=== PATIENT | female | born 1985 | race Two or more races ===

== ENCOUNTER 2020-10-27 05:04 | Emergency (ER) | payer OTHER, SELFPAY ==
--- NOTE | 2020-10-27 05:29 | ED.PSYCH ---
HPI - Psych General Stated Complaint: Crisis Time Seen by Provider: 10/27/20 05:25 Source: patient Mode of arrival: ambulatory Limitations: no limitations History of Present Illness HPI Narrative: psych patient comes emergency room complaining of anxiety. Patient states that she has been going through a lot lately. Patient states that she would like to talk to somebody. Patient states that she is not suicidal or homicidal. Patient states it is mostly anxiety Related Data Allergies Allergy/AdvReac Type Severity Reaction Status Date / Time No Known Allergies Allergy Unverified 01/18/20 15:26 Review of Systems Review of Systems: Constitutional : No Weight loss, No Fever, No Chills, No Night Sweats, No Fatigue, No Malaise ENT/Mouth : No Hearing loss, No Ear Pain, No Nasal Congestion, No Sinus Pain, No Hoarseness, No sore throat, No Rhinorrhea, No Swallowing Difficulty Eyes: No Eye Pain, No Swelling, No Redness, No Foreign Body, No Discharge, No Vision Changes Cardiovascular : No Chest Pain, No SOB, No Dyspnea on Exertion, No Orthopnea, No Edema, No Palpitations Respiratory : No Cough, No Sputum, No Wheezing, No Smoke Exposure, No Dyspnea Gastrointestinal : No Nausea, No Vomiting, No Diarrhea, No Constipation, No abdominal Pain, No Hematochezia, No Melena Genitourinary : no irregular bleeding, No Dysuria, No Urinary Frequency, No Hematuria, No Urinary Incontinence, No Urgency, No Flank Pain, No Urinary Flow Changes, No Hesitancy Musculoskeletal : No joint pain, No Myalgias, No Joint Swelling Skin : No Skin Lesions, No rash Neuro : No Weakness, No Numbness, No Paresthesias, No Loss of Consciousness, No Dizziness, No Headache Psych : complaining of anxiety,No Depression, No SI/HI/AH/VH, No Social Issues, Heme/Lymph: No Bruising, No Bleeding,No Lymphadenopathy Endocrine : No Polyuria, No Polydipsia, No Temperature Intolerance Physical Exam Vital Signs: Appearance: Alert. Oriented X3. No acute distress. Eyes: Pupils equal, round and reactive to light. ENT: Pharynx normal. Neck: Normal inspection. Neck supple. No lymph nodes noted. No crepitus CVS: Normal heart rate and rhythm. Pulses normal. Normal S1 and S2 Respiratory: No respiratory distress. Breath sounds normal. No Wheezing. No rales Abdomen: Soft and nontender. No rigidity. No distention. good BS x4 Skin: Skin warm and dry. Normal skin color. Normal skin turgor. Extremities: No lower extremity edema. No lower extremity edema. No Lacerations. No Rash Neuro: Oriented X 3. No motor deficit. No sensory deficit. Moving all extermities. No slurred speech. 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 Patient refused. Patient apologized and states that she is not ready to go through this procedure. Patient will go home, when she is ready she will return. As mentioned above, patient is here for anxiety, denies depression, no SI or HI. Per patient's request, she was discharged home, did not want a [facility] evaluation Discharge Plan Discharge Clinical Impression: Anxiety Patient Disposition: Home, Self-Care Instructions: Anxiety (ED) Additional Instructions: Please follow-up with your primary care physician tomorrow. If you have any worsening or new symptoms, please return to the emergency room or call 911
[2020-10-27 05:34] VITALS: BP 000/00; PULSE 0; RESP 18; TEMP -17.7; TEMP 0; O2SAT 0; BMI 33.6
== END 2020-10-27 05:36 | disposition home or self-care (01) ==
LOC: HO.ED 05:35
PROVIDERS: Emergency Provider Emergency Medicine
DX: F41.9 Anxiety disorder, unspecified (principal)
CPT/HCPCS: 99281; 99282

== ENCOUNTER 2020-12-29 23:24 | Emergency (ER) | payer OTHER, SELFPAY ==
--- NOTE | ~2020-12-29 | XR_ITS ---
EXAMINATION: XR KNEE, RIGHT CLINICAL INFORMATION: Pain and swelling COMPARISON: None TECHNIQUE: Four views of the right knee. FINDINGS: Osseous alignment is anatomic. Joint spaces are maintained. No acute fracture is seen. No significant effusion. XR/XR knee RT 4V IMPRESSION: No acute findings.
[2020-12-29 23:45] VITALS: BP 120/66; PULSE 68; RESP 12; TEMP 36.1; O2SAT 97; BMI 38.0
--- NOTE | 2020-12-30 00:25 | ED.EXTPRO ---
HPI - Extremity Problem General Chief complaint: Extremity Problem Stated complaint: leg pain Source: patient Mode of arrival: ambulatory Limitations: no limitations History of Present Illness HPI Narrative: 35-year-old female presents with several months of burning leg pain. Does not report any injury or trauma, states that she has been worked up by primary care physician with no significant results. Patient does not report any other symptoms at this time. MD Complaint: extremity pain Onset (ago): month(s) (2) Pain Consistency: constant Location: left, right and lower extremity Severity scale (1-10): 9 Quality: burning Radiation: none Relieving factors: nothing Associated symptoms: denies other symptoms Related Data Allergies Allergy/AdvReac Type Severity Reaction Status Date / Time No Known Allergies Allergy Verified 12/29/20 23:45 Review of Systems Review of Systems: Constitutional: No Fever, No Chills ENT/Mouth: No Ear Pain, No Hoarseness, No sore throat Eyes: No Eye Pain, No Swelling, No Redness, No Foreign Body Cardiovascular: No Chest Pain, No SOB Respiratory: No Cough, No Dyspnea Gastrointestinal: No Nausea, No Vomiting, No Diarrhea, No abdominal Pain Genitourinary: No Dysuria, No Hematuria Musculoskeletal: positive right leg pain, No Myalgias, No Joint Swelling Skin: No Skin lacerations, No rash Neuro: No Weakness, No Numbness, No Paresthesias, No Loss of Consciousness, No Dizziness, No Headache Psych: No Anxiety/Panic, No Depression Heme/Lymph: no easy bruising, no Lymphadenopathy Endocrine: No Polyuria, No Polydipsia Yes all other systems are reviewed and are negative [facility] Past Medical History Attestation statement: The following information was validated with the patient. Source: old records reviewed Social History Social History Advance Directives: No Advance Directives Information Provided: Yes Physical Exam Vital Signs: Vital Signs: Last Vital Signs Temp 96.9 F 12/29/20 23:45 Pulse 68 12/29/20 23:45 Resp 12 12/29/20 23:45 BP 120/66 12/29/20 23:45 Pulse Ox 97 12/29/20 23:45 Body Mass Index 38.0 Appearance: Alert. Oriented X3. No acute distress. Eyes: Pupils equal, round and reactive to light. ENT: Pharynx normal. Neck: Normal inspection. Neck supple. CVS: Normal heart rate and rhythm. Pulses normal. Respiratory: No respiratory distress. Breath sounds normal. Abdomen: Soft and nontender. Skin: Skin warm and dry. Normal skin color. Normal skin turgor. Extremities: No lower extremity edema. No appreciable swelling, wounds, erythema, cysts, or phlebitis noted. Neuro: No motor deficit. No sensory deficit. Cranial nerves 2-12 intact. Course Course Course Narrative: 35-year-old female presents with burning leg pain, right greater than the left. States that she does not have any history trauma or injury, no rashes or fevers noted. Patient was worked up by primary care physician and other specialists with no significant findings. Physical exam is unremarkable, no indication of cysts, phlebitis, edema, or indication of DVT. Brisk capillary refill and equal pulses to bilateral lower extremities. Will order right knee x-ray. Patient does have full range of motion, is ambulatory without limp or difficulty. X-rays are negative for acute findings. Patient was referred to primary care physician for further workup. Patient verbalized understanding of and agrees plan of care discharge home. MDM - Extremity (Nontraumatic) MDM Narrative Medical decision making narrative: Carter cyst Differential Diagnosis Differential diagnosis: Likely cellulitis, superficial thrombophlebitis, lower extremity edema and deep vein thrombosis of lower extremity Medical Records Attestation: I reviewed the patient's medical records. Imaging Data Knee x-ray: Attestation: I personally reviewed and interpreted this imaging study as follows: Radiologist's impression: EXAMINATION: XR KNEE, RIGHT? CLINICAL INFORMATION: Pain and swelling? COMPARISON: None? TECHNIQUE: Four views of the right knee. FINDINGS: Osseous alignment is anatomic. Joint spaces are maintained. No acute fracture is seen. No significant effusion.? XR/XR knee RT 4V IMPRESSION: No acute findings. Discharge Plan Discharge Clinical Impression: Leg pain Qualifiers: Laterality: bilateral Qualified Code(s): M79.604 - Pain in right leg Patient Disposition: Home, Self-Care Instructions: Leg Pain (ED) Additional Instructions: You were evaluated for burning leg pain. X-rays are negative for acute findings requiring emergent intervention. Please continue to follow-up with her primary care provider. Thank you for choosing this emergency department for evaluation. Please follow-up with primary care physician as needed. Return to the emergency department for any new, concerning, or worsening symptoms. Interventions: ED Discharge Assessment Last Done: 12/30/20 01:08 Discharge Date/Time: 12/30/20 01:09
== END 2020-12-30 01:09 | disposition home or self-care (01) ==
PROVIDERS: Emergency Provider Student in an Organized Health Care Education/Training Program; PCP Internal Medicine
DX: M79.604 Pain in right leg (principal)
CPT/HCPCS: 73564; 99283

== ENCOUNTER 2021-02-02 16:56 | Emergency (ER) | payer OTHER, SELFPAY | END 2021-02-02 18:20 | disposition left against medical advice (07) | PROVIDERS: Emergency Provider Emergency Medicine | DX: R10.9 Unspecified abdominal pain (principal) ==

== ENCOUNTER 2021-02-03 20:00 | Emergency (ER) | payer OTHER, SELFPAY ==
--- NOTE | 2021-02-03 21:34 | PC.NURSE ---
NO RESPONSE WHEN CALLED IN WR.
== END 2021-02-03 22:47 | disposition left against medical advice (07) ==
PROVIDERS: Emergency Provider Emergency Medicine
DX: R10.9 Unspecified abdominal pain (principal)

== ENCOUNTER 2021-02-03 23:44 | Emergency (ER) | payer OTHER, SELFPAY ==
[2021-02-04 00:16] VITALS: BP 128/75; PULSE 101; RESP 16; TEMP 36.9; O2SAT 100; BMI 36.8
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
--- NOTE | 2021-02-04 02:08 | PC.NURSE ---
this nurse went into pt room with Brit RN to administer medications, this nurse also asked pt if she would be ok with having lab work done at request of provider and patient stated she doesn't like needles. this nurse informed the pt that one of the medications is an IM injection and pt then refused all meds, including PO meds, and refused lab work. notified
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
[2021-02-04 03:33] LABS: CT PCR NOT DETECTED (Not Detect.); NG PCR NOT DETECTED (Not Detect.)
[2021-02-04 05:42] VITALS: RESP 16
[2021-02-04 05:53] VITALS: BP 108/54; PULSE 71; RESP 16; O2SAT 96
--- NOTE | 2021-02-04 07:30 | PC.NURSE ---
pt medically cleared for discharge. pt has pamphlet from care team. pt states she will call numbers on pamphlet. pt given discharge summary that recommends her following up with provider. pt told her std results per her request.
== END 2021-02-04 07:35 | disposition home or self-care (01) ==
PROVIDERS: Emergency Provider Student in an Organized Health Care Education/Training Program
DX: T76.21XA Adult sexual abuse, suspected, initial encounter (principal); R51.9 Headache, unspecified; R10.9 Unspecified abdominal pain; Z20.2 Contact with and (suspected) exposure to infections with a predominantly sexual mode of transmission
CPT/HCPCS: 87491; 87591; 96372; 99284

== ENCOUNTER 2021-02-07 00:17 | Inpatient (IN) | payer OTHER, SELFPAY ==
--- NOTE | ~2021-02-07 | XR_ITS ---
EXAMINATION: XR ABDOMEN KUB CLINICAL INDICATION: Obstruction COMPARISON: None TECHNIQUE: AP view of the abdomen. FINDINGS: There is a large amount stool in the colon suggestive of constipation. There are no dilated loops of bowel to suggest obstruction. There is no evidence of free air. No calcifications are seen. Bony structures are normal. XR/XR KUB IMPRESSION: Large amount of stool throughout the colon suggestive of constipation. No evidence of obstruction.
--- NOTE | ~2021-02-07 | XR_ITS ---
EXAMINATION: XR ABDOMEN KUB CLINICAL INDICATION: Constipation COMPARISON: 02/28/2021 TECHNIQUE: 2 views of the abdomen. FINDINGS: Again seen is a large amount of stool throughout the colon, without colonic dilatation compatible with constipation. No evidence of obstruction. No unusual soft tissue calcifications. Bones are unremarkable. XR/XR KUB IMPRESSION: Moderate constipation, similar in severity to the prior exam.
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
[2021-02-07 00:33] VITALS: BP 140/73; PULSE 91; RESP 18; TEMP 37.1; O2SAT 98; BMI 37.8
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
[2021-02-07 01:41] LABS: COVID-19 Test Negative (Negative); IDNOW Serial# 9DD0AD1C
--- NOTE | 2021-02-07 05:41 | PC.NURSE ---
Patient was found intermittently sleeping, no distress observed/reported, pending urine sample, patient is germophobic, behavior appropriate, patient is currently not on any medication per patient, BHN referral completed and confirmed by Armando, patient will be seen in the morning, patient is sectioned by ED provider, will continue to monitor.
--- NOTE | 2021-02-07 06:52 | PC.NURSE ---
patient appears to remain asleep at present respirations are even and unlabored, patient appears in no distress
--- NOTE | 2021-02-07 07:41 | PC.NURSE ---
patients sister called and spoke to [employer], reported mother recently and client doesnt seem to eat outside the home and that client has lost 50 pounds in last several months also
[2021-02-07 09:02] VITALS: BP 134/95; PULSE 78; RESP 16; TEMP 36.9; O2SAT 98
[2021-02-07 09:45] LABS: Appearance Urine HAZY; Color Urine YELLOW; Glucose Urine UA NEG (NEG); Leukocyte Esterase Urine NEG (NEG); Nitrite Urine NEG (NEG); Specific Gravity - Urine 1.025 (1.005-1.025); Urine Blood NEG (NEG); Urine Ketones 40 MG/DL (NEG); Urine Protein NEG (NEG-TRACE)
[2021-02-07 09:47] LABS: UPreg QC Valid YES; Urine Pregnancy NEGATIVE (NEGATIVE)
[2021-02-07 09:49] LABS: Amphetamine Screen Urine Not Detected (Not Detect); Barbiturates, Urine Not Detected (Not Detect); Benzodiazepines Screen Urine Not Detected (Not Detect); Cannabinoid Screen Urine Not Detected (Not Detect); Cocaine Screen Urine Not Detected (Not Detect); Fentanyl, urine Not Detected (Not Detect); Opiate Screen Urine Not Detected (Not Detect); Phencyclidine Screen Urine Not Detected (Not Detect)
[2021-02-07 09:53] LABS: Mucus Urine 2+ /LPF; RBC Urine 0 /HPF (0); Squamous Epithelial Cell Urine 1+ /LPF; WBC Urine 0 /HPF (0-4)
[2021-02-07 15:18] VITALS: BP 133/77; PULSE 111; RESP 18; O2SAT 96
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
[2021-02-07 23:49] VITALS: BP 136/90; PULSE 95; RESP 18; TEMP 36.1; O2SAT 99
--- NOTE | 2021-02-08 00:13 | PC.NURSE ---
Pt is a 35 yr old female who self presented to ED due to feeling overwhelmed and anxious with passive SI. Pt refused to sign CV while in pod. inbound call center representative signed section 12. Pt was admitted to M5 unit at 2200, vitals were taken. Pt presented as anxious, germphobic, had refused to sit in cleaned wheelchair until blanket was placed over it. when on unit, chair had to be covered with blanket again before she could sit on it. Pt was quite, guarded, anxious. She was shown to her room by pc. Was unable to complete nursing assessment on admission due to pt's high anxiety state. Peer on unit was restrained which made pt even more anxious. Pt was found in peers room by PC, pt then stood in corner in hallway. Didn't want to leave stated I am not making any noise, can I please stay here to get my thoughts together Was offered to be shown sensory room with no effect. inbound call center representative met with pt, made order for Ativan 2 mg. Pt refused Ativan stated Can I try staying here refused after multiple. Hands are very traore, and cracked. Pt given lotion. Tox screen was negative.
--- NOTE | 2021-02-08 01:20 | PC.NURSE ---
Pt is a 35 yr old female who self presented to ED due to feeling overwhelmed and anxious with passive SI. Pt refused to sign CV while in pod. floriculture teacher signed section 12. Pt was admitted to M5 unit at 2200, vitals were taken. Pt presented as anxious, very af, had refused to sit in cleaned wheelchair until blanket was placed over it. when on unit, chair had to be covered with blanket again before she could sit on it. Pt was quite, guarded, anxious. She was shown to her room by pc. Was unable to complete nursing assessment on admission due to pt's high anxiety state. Peer on unit was restrained which made pt even more anxious. Pt was found in peers room by PC, pt then stood in corner in hallway. Didn't want to leave stated I am not making any noise, can I please stay here to get my thoughts together Was offered to be shown sensory room with no effect. floriculture teacher met with pt, made order for Ativan 2 mg. Pt refused Ativan stated Can I try staying here refused after multiple. later was walked to room. Hands are very dry. Pt given lotion. Tox screen was negative. Nurse to nurse done before transfer to unit. Pt was assessed by AUTOMATIC VULCANIZING OPERATOR Tammie Monroy. Denied SI/SH at time of admission. Didn't sign any paperwork, wasn't able sit through safety tool or any assessment, kept saying can I do this tomorrow, am tired . Pt currently in room sitting on bed. Will continue to monitor and offer support as needed. Continues on 15 min checks.
[2021-02-08 13:00] VITALS: BP 121/82; PULSE 103; RESP 16; TEMP 36.6; O2SAT 99
[2021-02-08 18:00] VITALS: BP 126/64; PULSE 102; RESP 18; TEMP 37; O2SAT 100
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
--- NOTE | 2021-02-08 19:24 | PC.NURSE ---
Patient offered flu shot, stated she was undecided . Refused at this time.
--- NOTE | 2021-02-09 09:00 | ECG_ITS ---
Test Reason : psychosis Blood Pressure : / mmHG Vent. Rate : 101 BPM Atrial Rate : 101 BPM P-R Int : 130 ms QRS Dur : 076 ms QT Int : 368 ms P-R-T Axes : 068 039 020 degrees QTc Int : 477 ms Poor data quality, interpretation may be adversely affected Sinus tachycardia with Premature atrial complexes Nonspecific ST abnormality Inferior leads Abnormal ECG No previous ECGs available Referred By: Brittnee Saunders Electronically Signed By:JOHN UNDERWOOD MD
[2021-02-09 09:23] VITALS: BP 124/85; PULSE 104; RESP 17; TEMP 36.8; O2SAT 98
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
[2021-02-09 18:00] VITALS: BP 122/75; PULSE 85; RESP 18; TEMP 36.3; O2SAT 98
--- NOTE | 2021-02-09 18:47 | PC.NURSE ---
Pt submitted a Three Day Notice on Friday 02/09 up on 02/13.
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
[2021-02-10 18:00] VITALS: BP 135/83; PULSE 76; RESP 20; TEMP 35.8; O2SAT 99
[2021-02-11 07:30] VITALS: BP 120/76; PULSE 89; RESP 18; TEMP 36.7; O2SAT 99
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
[2021-02-11 21:00] VITALS: BP 124/76; PULSE 90; RESP 16; TEMP 36.4; O2SAT 100
[2021-02-12 08:17] VITALS: BP 114/64; PULSE 79; RESP 14; TEMP 36.7; O2SAT 99
--- NOTE | 2021-02-12 11:37 | P.CONOB_ITS ---
COMPLEX CARE NURSE - CN: HPI Data of Consult Consult date: 02/12/21 Requesting Physician: Marjorie Bauer Primary Care Provider: [facility] Consult Narrative Narrative: Radha Perry is a 35 year old female Called to see pt. for a clinical cytopathologist consult. She is resting in bed comfortably, Ann (pt. nurse) is present for interview. She declines a physical exam today, she is open to talk. Patient reports vaginal irritation for several days. She denies any urinary symptoms. She has some vaginal discharge but does not know what color it was. She has some mild pelvic discomfort for a few days. She also has a history of constipation/diarrhea. Vague answers to menstrual history. cc:: CC: Marjorie Bauer METALIZING SUPERVISOR - Review of Systems Review of Systems Gastrointestinal: Reports Constipation and Diarrhea Additional Comments: vaginal irritation and discharge, abdominal discomfort OB PMFSH Past Medical History Medical History (Updated 02/12/21 @ 17:19 by Ashley Sands CNM) Vaginal irritation Social History Social History Household Members Other:: I don't want to answer that right now . Patient Tobacco Use Status: Never used Tobacco Smoked in Last 30 Days: No e-Cigarette/Vaping Use: Never Used Use of substances other than those prescribed or required for medical reasons: Unknown Substance Use Type: Caffiene Substance Use Type Other:: I'm not sure . Last Used Substance: Unknown Last Used Substance Other:: I'm not sure . Currently Displaying Signs/Symptoms of Drug Intoxication Withdrawal: No Do you feel safe in your current relationship?: Yes Spiritual Healthcare Practices: My kathryn is in God, Jonathan Barney . Cultural Healthcare Practices: Not sure . Advance Directives: No Advance Directives Information Provided: No Advance Directives on File: No Do you have thoughts of harming others: None Do you have a plan to hurt others: No Plan Recently lost weight without trying: Unsure Patient : No : No service: No Sexual orientation: Decline to Answer Meds Allergies Allergy/AdvReac Type Severity Reaction Status Date / Time No Known Allergies Allergy Verified 02/04/21 00:13 Active Medications: Current Medications Acetaminophen (Acetaminophen 325 Mg Tablet) 650 mg PO Q6H PRN PRN Reason: Headache/Pain Mild Scale (1-3) Al Hydroxide/Mg Hydroxide (Magnesium Hydrox/Alum Hydrox 30 Ml Oral.Susp) 30 ml PO Q6H PRN PRN Reason: Heartburn/Nausea Hydroxyzine HCl (Hydroxyzine Hcl 25 Mg Tablet) 25 mg PO Q6H PRN PRN Reason: Anxiety Magnesium Hydroxide (Milk Of Magnesia 30 Ml Oral.Susp) 30 ml PO DAILY PRN PRN Reason: Constipation Metronidazole (Metronidazole 500 Mg Tablet) 500 mg PO BID ALEX Stop: 02/15/21 21:00 Last Admin: 02/12/21 08:21 Dose: Not Given Documented by: Olanzapine (Olanzapine 5 Mg Tablet) 5 mg PO BEDTIME ALEX Last Admin: 02/11/21 21:24 Dose: Not Given Documented by: Trazodone HCl (Trazodone Hcl 50 Mg Tablet) 50 mg PO BEDTIME PRN PRN Reason: Insomnia Home Medications Medication Instructions Recorded Confirmed Last Taken Type Seroquel 1 tab PO TID 02/07/21 02/07/21 Unknown History melatonin 1 tab PO BEDTIME 02/07/21 02/07/21 Unknown History COMPLEX CARE NURSE Physical Exam Vitals Vital signs: Temp Pulse Resp BP Pulse Ox 98.0 F 79 14 114/64 99 02/12/21 08:17 02/12/21 08:17 02/12/21 08:17 02/12/21 08:17 02/12/21 08:17 Body Mass Index 37.8 COMPLEX CARE NURSE - Results Labs Labs: Urine 02/07/21 02/07/21 Range/Units 09:27 09:27 Urine Color YELLOW Urine Appearance HAZY Urine pH 6.0 (5.0-8.0) Ur Specific [place] 1.025 (1.005-1.025) Urine Protein NEG (NEG-TRACE) MG/DL Urine Glucose (UA) NEG (NEG) MG/DL Urine Test NEGATIVE (NEGATIVE) Assessment and Plan (1) Vaginal irritation: Status: Acute Pt. declined exam, the nurse will ask pt. if she reconsiders she will notify the department for my return to complete the physical exam/evaluation.
--- NOTE | 2021-02-12 13:00 | PC.NURSE ---
Patient seen for POULTRY CLEANER consult. Patient refused assessment at this time.
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
[2021-02-12 18:00] VITALS: BP 122/77; PULSE 107; RESP 18; TEMP 36.3; O2SAT 97
--- NOTE | 2021-02-13 09:05 | P.PNPSI_ITS ---
Subjective Subjective Date of Service: 02/14/21 Reason For Visit: Psychosis Subjective Notes: Pizarro Warning Interim History: Pt continues to present as guarded, not eating food worried that it is poisoned or will harm her. Pt continues to decline taking medications due to paranoia. Pt awake most of the night. Pt suspicious, not providing much information. Family concern about pt's ability to care for herself. Minimally interactive with peers. 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: No c/o dizziness, headache GI: No c/o Nausea, Vomiting, diarrhea, constipation or heartburn Yes all other systems are reviewed and are negative and Unobtainable due to mental status Reports behavioral changes Psychiatric: Reports abnormal sleep pattern, Reports anxiety, Reports behavioral changes, Reports change in appetite, Reports depression, Reports difficulty concentrating, Reports hopelessness, Reports irritability, Reports anhedonia, Reports paranoia and Reports suicidal ideation (denies) Mental Status Exam Mental Status Exam Narrative: Appearance: casually groomed, fair hygiene in NAD Behavior:very suspicious and paranoid psychomotor: no agitation or retardation noted Speech:clear, soft tone, minimally spontaneous, Thought process:limited to yes and no answers Thought content:suspicious, worried about people following her Mood: okay Affect: suspicious, paranoid SI:denies HI:denies VH/AH:appears internally preoccupied Delusions:paranoia about being monitored, people following her Insight/judgment:impaired x 2. Memory/cog: alert, oriented to month, place, not situation. impaired secondary to psychiatric symptoms. Diagnostics Vital Signs (24Hr): Vital Signs - 24 hr 02/13/21 20:03 02/14/21 06:00 Temperature 97.6 F 97.8 F Pulse Rate 83 100 Respiratory Rate 16 18 Blood Pressure 119/76 114/83 Pulse Oximetry 99 97 Body Mass Index 37.8 Medications Medications Current Medications Acetaminophen (Acetaminophen 325 Mg Tablet) 650 mg PO Q6H PRN PRN Reason: Headache/Pain Mild Scale (1-3) Al Hydroxide/Mg Hydroxide (Magnesium Hydrox/Alum Hydrox 30 Ml Oral.Susp) 30 ml PO Q6H PRN PRN Reason: Heartburn/Nausea Hydroxyzine HCl (Hydroxyzine Hcl 25 Mg Tablet) 25 mg PO Q6H PRN PRN Reason: Anxiety Magnesium Hydroxide (Milk Of Magnesia 30 Ml Oral.Susp) 30 ml PO DAILY PRN PRN Reason: Constipation Olanzapine (Olanzapine 10 Mg Tablet) 10 mg PO BEDTIME ALEX Last Admin: 02/13/21 20:04 Dose: Not Given Documented by: Trazodone HCl (Trazodone Hcl 50 Mg Tablet) 50 mg PO BEDTIME PRN PRN Reason: Insomnia Allergies Allergies Allergy/AdvReac Type Severity Reaction Status Date / Time No Known Allergies Allergy Verified 02/04/21 00:13 Assessment & Plan Assessment & Plan (1) Schizoaffective disorder, depressive type: Status: Acute Code(s): F25.1 - Schizoaffective disorder, depressive type Assessment and Plan: Pt with hx of schizoaffective disorder PLAN 1. Pt currently declines taking medications. Significant concern as to her ability to care for self including significant loss weight, ability to maintain job due to paranoia, impaired judgment/insight. Appears gravely disable. Decision of team to file for involuntary commitment. 2. Olanzapine offered but pt declines. Greater than 50% of the session was spent on counseling and/or coordination of care Reason for contiued inpatient stay Substantial Risk for: inability to function
[2021-02-13 20:03] VITALS: BP 119/76; PULSE 83; RESP 16; TEMP 36.4; O2SAT 99
[2021-02-14 06:00] VITALS: BP 114/83; PULSE 100; RESP 18; TEMP 36.6; O2SAT 97
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
[2021-02-15 08:00] VITALS: BP 112/59; PULSE 78; RESP 16; TEMP 36.7; O2SAT 98
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
[2021-02-16 20:10] VITALS: BP 118/62; PULSE 104; RESP 16; TEMP 36.4; O2SAT 98
--- NOTE | 2021-02-17 01:35 | PC.NURSE ---
Engineering found a bunch of bath wipes and food items in the clogged drain. Bathroom was locked after they left and patient was told that the bathroom would remain locked and when she needed to use the bathroom, she would need to ask staff. Also, patient was informed that she needed to eat outside her room because it was found that she was flushing large amounts of food items down the toilet as well.
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
--- NOTE | 2021-02-17 15:16 | MHC.CLN ---
F/U PATIENT FLUSHING FOOD DOWN TOILET. ALSO DECLINING FOOD DUE TO FEARFUL OF POISONING. DIET=REGULAR WITH ENSURE TID. CONTINUE TO FOLLOW FOR STRATEGIES TO INCREASE INTAKE.
[2021-02-17 19:49] VITALS: BP 120/85; PULSE 92; RESP 18; TEMP 36.4; O2SAT 100
[2021-02-18 08:00] VITALS: BP 111/73; PULSE 105; RESP 16; TEMP 36.2; O2SAT 100
--- NOTE | 2021-02-18 13:29 | P.PNPSI_ITS ---
Subjective Subjective Date of Service: 02/18/21 Reason For Visit: Psychosis Interim History: Pt continues to present as very paranoia, guarded, does not feel safe going out of her room. She continues to decline eating most food as she is worried that she is being poisoned. Pt continues to report she is worried about her safety, thinks people are after her. She denies SI/HI. She reports she wants professional help and she would follow up but when reminded she can have treatment here, pt very guarded and suspicious. Per nursing, pt throwing food down toilet, guarded, mostly in her room minimally interacting with peers or staff. She continues to decline medications. 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: No c/o dizziness, headache GI: No c/o Nausea, Vomiting, diarrhea, constipation or heartburn Yes all other systems are reviewed and are negative and Unobtainable due to mental status Reports behavioral changes Psychiatric: Reports abnormal sleep pattern, Reports anxiety, Reports behavioral changes, Reports change in appetite, Reports depression, Reports difficulty concentrating, Reports hopelessness, Reports irritability, Reports anhedonia, Reports paranoia and Reports suicidal ideation (denies) Mental Status Exam Mental Status Exam Narrative: Appearance: casually groomed, fair hygiene in NAD Behavior:very suspicious and paranoid psychomotor: no agitation or retardation noted Speech:clear, soft tone, minimally spontaneous, Thought process:limited to yes and no answers Thought content:suspicious, worried about people following her Mood: okay Affect: suspicious, paranoid SI:denies HI:denies VH/AH:appears internally preoccupied Delusions:paranoia about being monitored, people following her Insight/judgment:impaired x 2. Memory/cog: alert, oriented to month, place, not situation. impaired secondary to psychiatric symptoms. Diagnostics Vital Signs (24Hr): Vital Signs - 24 hr 02/17/21 19:49 02/18/21 08:00 Temperature 97.6 F 97.2 F Pulse Rate 92 105 H Respiratory Rate 18 16 Blood Pressure 120/85 111/73 Pulse Oximetry 100 100 Body Mass Index 37.8 Medications Medications Current Medications Acetaminophen (Acetaminophen 325 Mg Tablet) 650 mg PO Q6H PRN PRN Reason: Headache/Pain Mild Scale (1-3) Al Hydroxide/Mg Hydroxide (Magnesium Hydrox/Alum Hydrox 30 Ml Oral.Susp) 30 ml PO Q6H PRN PRN Reason: Heartburn/Nausea Hydroxyzine HCl (Hydroxyzine Hcl 25 Mg Tablet) 25 mg PO Q6H PRN PRN Reason: Anxiety Magnesium Hydroxide (Milk Of Magnesia 30 Ml Oral.Susp) 30 ml PO DAILY PRN PRN Reason: Constipation Olanzapine (Olanzapine 10 Mg Tablet) 10 mg PO BEDTIME ALEX Last Admin: 02/17/21 20:13 Dose: Not Given Documented by: Trazodone HCl (Trazodone Hcl 50 Mg Tablet) 50 mg PO BEDTIME PRN PRN Reason: Insomnia Allergies Allergies Allergy/AdvReac Type Severity Reaction Status Date / Time No Known Allergies Allergy Verified 02/04/21 00:13 Assessment & Plan Assessment & Plan (1) Schizoaffective disorder, depressive type: Status: Acute Code(s): F25.1 - Schizoaffective disorder, depressive type Assessment and Plan: Pt with hx of schizoaffective disorder PLAN 1. Pt currently declines taking medications. Significant concern as to her ability to care for self including significant loss weight, ability to maintain job due to paranoia, impaired judgment/insight. Appears gravely disable. Decision of team to file for involuntary commitment. 2. Olanzapine offered but pt declines. Weekend coverage: pt continues to decline tx, has not been eating meals or sustenance provided. Continues to be at risk for physical neglect and inability to function. I spent minutes with the patient and/or on the patient floor today, greater than?50% of which was spent counseling/coordinating care. Reason for contiued inpatient stay Substantial Risk for: inability to function
[2021-02-18 18:00] VITALS: BP 114/72; PULSE 79; TEMP 36.6; O2SAT 97
[2021-02-19 08:29] VITALS: BP 108/59; PULSE 81; RESP 16; TEMP 36.7; O2SAT 97
--- NOTE | 2021-02-19 10:46 | P.PNPSI_ITS ---
Subjective Subjective Date of Service: 02/19/21 Reason For Visit: Psychosis Subjective Notes: Section 7 Interim History: Pt continues to present as guarded and paranoid. Pt mostly in her room and declines to attend assigned groups. Pt continues to report that she does not feel safe here (reports that someone may be trying to hurt her but does not state who) or at her apartment but asks that she is discharged. Pt more guarded and not fully forthcoming with extend of paranoia. Pt reports she would engage in OP therapy but per records pt has presented twice to ED reporting anxiety but when evaluated by crisis declined talking with them. Pt drinking ensure, not eating much food. She denies SI/HI. 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, headache GI: No c/o Nausea, Vomiting, diarrhea, constipation or heartburn Yes all other systems are reviewed and are negative and Unobtainable due to mental status Reports behavioral changes Psychiatric: Reports abnormal sleep pattern, Reports anxiety, Reports behavioral changes, Reports change in appetite, Reports depression, Reports difficulty concentrating, Reports hopelessness, Reports irritability, Reports anhedonia, Reports paranoia and Reports suicidal ideation (denies) Mental Status Exam Mental Status Exam Narrative: Appearance: casually groomed, fair hygiene in NAD Behavior:very suspicious and paranoid psychomotor: no agitation or retardation noted Speech:clear, soft tone, minimally spontaneous, Thought process:limited to yes and no answers Thought content:suspicious, worried about people following her Mood: okay Affect: suspicious, paranoid SI:denies HI:denies VH/AH:appears internally preoccupied Delusions:paranoia about being monitored, people following her Insight/judgment:impaired x 2. Memory/cog: alert, oriented to month, place, not situation. impaired secondary to psychiatric symptoms. Diagnostics Vital Signs (24Hr): Vital Signs - 24 hr 02/20/21 18:00 Temperature 97.4 F Pulse Rate 95 Respiratory Rate 18 Blood Pressure 118/75 Pulse Oximetry 100 Body Mass Index 37.8 Medications Medications Current Medications Acetaminophen (Acetaminophen 325 Mg Tablet) 650 mg PO Q6H PRN PRN Reason: Headache/Pain Mild Scale (1-3) Al Hydroxide/Mg Hydroxide (Magnesium Hydrox/Alum Hydrox 30 Ml Oral.Susp) 30 ml PO Q6H PRN PRN Reason: Heartburn/Nausea Hydroxyzine HCl (Hydroxyzine Hcl 25 Mg Tablet) 25 mg PO Q6H PRN PRN Reason: Anxiety Magnesium Hydroxide (Milk Of Magnesia 30 Ml Oral.Susp) 30 ml PO DAILY PRN PRN Reason: Constipation Last Admin: 02/20/21 15:48 Dose: 30 ml Documented by: Olanzapine (Olanzapine 10 Mg Tablet) 10 mg PO BEDTIME ALEX Last Admin: 02/20/21 20:30 Dose: Not Given Documented by: Trazodone HCl (Trazodone Hcl 50 Mg Tablet) 50 mg PO BEDTIME PRN PRN Reason: Insomnia Allergies Allergies Allergy/AdvReac Type Severity Reaction Status Date / Time No Known Allergies Allergy Verified 02/04/21 00:13 Assessment & Plan Assessment & Plan (1) Schizoaffective disorder, depressive type: Status: Acute Code(s): F25.1 - Schizoaffective disorder, depressive type Assessment and Plan: Pt with hx of schizoaffective disorder PLAN 1. Pt currently declines taking medications. Significant concern as to her ability to care for self including significant loss weight, ability to maintain job due to paranoia, impaired judgment/insight. Appears gravely disable. Decision of team to file for involuntary commitment. 2. Olanzapine offered but pt declines. Weekend coverage: pt continues to decline tx, has not been eating meals or sustenance provided. Continues to be at risk for physical neglect and inability to function. I spent minutes with the patient and/or on the patient floor today, greater than?50% of which was spent counseling/coordinating care. Reason for contiued inpatient stay Substantial Risk for: inability to function
[2021-02-19 20:30] VITALS: BP 114/75; PULSE 95; TEMP 36.3; O2SAT 100
--- NOTE | 2021-02-20 10:49 | HO.PSYCHPN ---
Subjective Subjective Date of Service: 02/20/21 Reason For Visit: Psychosis Subjective Notes: Section 7 Interim History: Pt continues to stay mostly in room. She reports she has been through a lot. However, pt would not elaborate. Pt reports she does not feel here nor at apartment. She states she has a car but keys in apartment. Pt would not elaborate when asked why she wouldn't feel safe at home. Pt more guarded and not fully forthcoming with extend of paranoia. Pt asks that bathroom is unlocked (locked as pt throwing food and others objects in bathroom). Pt washing hands excessively, asks for one bottle of mouth wash daily (uses one every day). Pt drinking ensure some times, not eating much food does admit worried about being poisoned. She denies SI/HI. 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, headache GI: No c/o Nausea, Vomiting, diarrhea, constipation or heartburn Yes all other systems are reviewed and are negative and Unobtainable due to mental status Reports behavioral changes Psychiatric: Reports abnormal sleep pattern, Reports anxiety, Reports behavioral changes, Reports change in appetite, Reports depression, Reports difficulty concentrating, Reports hopelessness, Reports irritability, Reports anhedonia, Reports paranoia and Reports suicidal ideation (denies) Mental Status Exam Mental Status Exam Narrative: Appearance: casually groomed, fair hygiene in NAD Behavior:very suspicious and paranoid psychomotor: no agitation or retardation noted Speech:clear, soft tone, minimally spontaneous, Thought process:limited to yes and no answers Thought content:suspicious, worried about people following her Mood: okay Affect: suspicious, paranoid SI:denies HI:denies VH/AH:appears internally preoccupied Delusions:paranoia about being monitored, people following her Insight/judgment:impaired x 2. Memory/cog: alert, oriented to month, place, not situation. impaired secondary to psychiatric symptoms. Diagnostics Vital Signs (24Hr): Vital Signs - 24 hr 02/20/21 18:00 Temperature 97.4 F Pulse Rate 95 Respiratory Rate 18 Blood Pressure 118/75 Pulse Oximetry 100 Body Mass Index 37.8 Medications Medications Current Medications Acetaminophen (Acetaminophen 325 Mg Tablet) 650 mg PO Q6H PRN PRN Reason: Headache/Pain Mild Scale (1-3) Al Hydroxide/Mg Hydroxide (Magnesium Hydrox/Alum Hydrox 30 Ml Oral.Susp) 30 ml PO Q6H PRN PRN Reason: Heartburn/Nausea Hydroxyzine HCl (Hydroxyzine Hcl 25 Mg Tablet) 25 mg PO Q6H PRN PRN Reason: Anxiety Magnesium Hydroxide (Milk Of Magnesia 30 Ml Oral.Susp) 30 ml PO DAILY PRN PRN Reason: Constipation Last Admin: 02/20/21 15:48 Dose: 30 ml Documented by: Olanzapine (Olanzapine 10 Mg Tablet) 10 mg PO BEDTIME ALEX Last Admin: 02/20/21 20:30 Dose: Not Given Documented by: Trazodone HCl (Trazodone Hcl 50 Mg Tablet) 50 mg PO BEDTIME PRN PRN Reason: Insomnia Allergies Allergies Allergy/AdvReac Type Severity Reaction Status Date / Time No Known Allergies Allergy Verified 02/04/21 00:13 Assessment & Plan Assessment & Plan (1) Schizoaffective disorder, depressive type: Status: Acute Code(s): F25.1 - Schizoaffective disorder, depressive type Assessment and Plan: Pt with hx of schizoaffective disorder PLAN 1. Pt currently declines taking medications. Significant concern as to her ability to care for self including significant loss weight, ability to maintain job due to paranoia, impaired judgment/insight. Appears gravely disable. Decision of team to file for involuntary commitment. 2. Olanzapine offered but pt declines. Weekend coverage: pt continues to decline tx, has not been eating meals or sustenance provided. Continues to be at risk for physical neglect and inability to function. I spent minutes with the patient and/or on the patient floor today, greater than?50% of which was spent counseling/coordinating care. Reason for contiued inpatient stay Substantial Risk for: inability to function
[2021-02-20] MEDS: Milk of Magnesia 30 ML ORAL.SUSP PO (15:48)
[2021-02-20 18:00] VITALS: BP 118/75; PULSE 95; RESP 18; TEMP 36.3; O2SAT 100
--- NOTE | 2021-02-21 12:53 | P.PNPSI_ITS ---
Subjective Subjective Date of Service: 02/21/21 Reason For Visit: Psychosis Subjective Notes: Section 7 Interim History: Pt continues to stay mostly in room, afraid of coming out of room. Per nursing, pt was up all night, very anxious and restless but would not accept any PRN medications. She reports she has been through a lot. However, pt would not elaborate. Pt reports she does not feel here nor at apartment. She states she has a car but keys in apartment. Pt would not elaborate when asked why she wouldn't feel safe at home. Pt more guarded and not fully forthcoming with extend of paranoia. Pt asks that bathroom is unlocked (locked as pt throwing food and others objects in bathroom). Pt washing hands excessively, asks for one bottle of mouth wash daily (uses one every day). Pt drinking ensure some times, not eating much food does admit worried about being poisoned. She denies SI/HI. 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 dizziness, headache GI: No c/o Nausea, Vomiting, diarrhea, constipation or heartburn Yes all other systems are reviewed and are negative and Unobtainable due to mental status Reports behavioral changes Psychiatric: Reports abnormal sleep pattern, Reports anxiety, Reports behavioral changes, Reports change in appetite, Reports depression, Reports difficulty concentrating, Reports hopelessness, Reports irritability, Reports anhedonia, Reports paranoia and Reports suicidal ideation (denies) Mental Status Exam Mental Status Exam Narrative: Appearance: casually groomed, fair hygiene in NAD Behavior:very suspicious and paranoid psychomotor: no agitation or retardation noted Speech:clear, soft tone, minimally spontaneous, Thought process:limited to yes and no answers Thought content:suspicious, worried about people following her Mood: okay Affect: suspicious, paranoid SI:denies HI:denies VH/AH:appears internally preoccupied Delusions:paranoia about being monitored, people following her Insight/judgment:impaired x 2. Memory/cog: alert, oriented to month, place, not situation. impaired secondary to psychiatric symptoms. Diagnostics Vital Signs (24Hr): Vital Signs - 24 hr 02/20/21 18:00 Temperature 97.4 F Pulse Rate 95 Respiratory Rate 18 Blood Pressure 118/75 Pulse Oximetry 100 Body Mass Index 37.8 Medications Medications Current Medications Acetaminophen (Acetaminophen 325 Mg Tablet) 650 mg PO Q6H PRN PRN Reason: Headache/Pain Mild Scale (1-3) Al Hydroxide/Mg Hydroxide (Magnesium Hydrox/Alum Hydrox 30 Ml Oral.Susp) 30 ml PO Q6H PRN PRN Reason: Heartburn/Nausea Hydroxyzine HCl (Hydroxyzine Hcl 25 Mg Tablet) 25 mg PO Q6H PRN PRN Reason: Anxiety Magnesium Hydroxide (Milk Of Magnesia 30 Ml Oral.Susp) 30 ml PO DAILY PRN PRN Reason: Constipation Last Admin: 02/20/21 15:48 Dose: 30 ml Documented by: Olanzapine (Olanzapine 10 Mg Tablet) 10 mg PO BEDTIME ALEX Last Admin: 02/20/21 20:30 Dose: Not Given Documented by: Trazodone HCl (Trazodone Hcl 50 Mg Tablet) 50 mg PO BEDTIME PRN PRN Reason: Insomnia Allergies Allergies Allergy/AdvReac Type Severity Reaction Status Date / Time No Known Allergies Allergy Verified 02/04/21 00:13 Assessment & Plan Assessment & Plan (1) Schizoaffective disorder, depressive type: Status: Acute Code(s): F25.1 - Schizoaffective disorder, depressive type Assessment and Plan: Pt with hx of schizoaffective disorder PLAN 1. Pt currently declines taking medications. Significant concern as to her ability to care for self including significant loss weight, ability to maintain job due to paranoia, impaired judgment/insight. Appears gravely disable. Decision of team to file for involuntary commitment. 2. Olanzapine offered but pt declines. I spent minutes with the patient and/or on the patient floor today, greater than?50% of which was spent counseling/coordinating care. Reason for contiued inpatient stay Substantial Risk for: inability to function
--- NOTE | 2021-02-21 15:47 | MHC.CLN ---
F/U BATHROOM DOOR LOCKED MEASURE TO PREVENT FOOD DISPOSAL IN BATHROOM. MD REPORTS THAT PATIENT IS TAKING SOME ENSURE AND NOT EATING MUCH. CONTINUE TO FOLLOW INTAKE.
[2021-02-21 18:00] VITALS: BP 123/84; PULSE 105; RESP 18; TEMP 36.6; O2SAT 98
[2021-02-22 08:00] VITALS: BP 107/57; PULSE 83; RESP 16; TEMP 36.3; O2SAT 100
--- NOTE | 2021-02-22 18:38 | P.PNPSI_ITS ---
Subjective Subjective Date of Service: 02/22/21 Reason For Visit: Psychosis Interim History: Pt continues to stay mostly in room, afraid of coming out of room. Patient refuses to go out. stays in room. Room is unlit. She stands and sways slowly sideto side. Paranoid. She says she is feeling fine. She is paranoid and answers monosyllabically. Says she came here for depression and doesn't know why she is here. She reports she has been through a lot. However, pt would not elaborate. Pt more guarded and not fully forthcoming with extend of paranoia. Pt drinking ensure some times, not eating much food does admit worried about being poisoned. She denies SI/HI. 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 dizziness, headache GI: No c/o Nausea, Vomiting, diarrhea, constipation or heartburn Yes all other systems are reviewed and are negative and Unobtainable due to mental status Reports behavioral changes Psychiatric: Reports abnormal sleep pattern, Reports anxiety, Reports behavioral changes, Reports change in appetite, Reports depression, Reports difficulty concentrating, Reports hopelessness, Reports irritability, Reports anhedonia, Reports paranoia and Reports suicidal ideation (denies) Mental Status Exam Mental Status Exam Narrative: Appearance: casually groomed, fair hygiene in NAD Behavior:very suspicious and paranoid psychomotor: no agitation or retardation noted Speech:clear, soft tone, minimally spontaneous, Thought process:limited to yes and no answers Thought content:suspicious, worried about people following her Mood: okay Affect: suspicious, paranoid SI:denies HI:denies VH/AH:appears internally preoccupied Delusions:paranoia about being monitored, people following her Insight/judgment:impaired x 2. Memory/cog: alert, oriented to month, place, not situation. impaired secondary to psychiatric symptoms. Patient Appearance: Appropriate Patient Orientation: Person, Place, Time and Situation Level of Consciousness: Awake and Alert Patient Behavior: Guarded, Passive, Suspicious, Avoidant, Isolative and Good Eye Contact Mood Description: Depressed and Anxious Affect Description: Flat Patient Cognition Impaired: No Ability to Follow Directions: Good Speech Pattern: Spontaneous Speech and Soft-Spoken Memory Description: Episodic Impaired Diagnostics Vital Signs (24Hr): Vital Signs - 24 hr 02/22/21 08:00 Temperature 97.4 F Pulse Rate 83 Respiratory Rate 16 Blood Pressure 107/57 L Pulse Oximetry 100 Body Mass Index 37.8 Medications Medications Current Medications Acetaminophen (Acetaminophen 325 Mg Tablet) 650 mg PO Q6H PRN PRN Reason: Headache/Pain Mild Scale (1-3) Al Hydroxide/Mg Hydroxide (Magnesium Hydrox/Alum Hydrox 30 Ml Oral.Susp) 30 ml PO Q6H PRN PRN Reason: Heartburn/Nausea Hydroxyzine HCl (Hydroxyzine Hcl 25 Mg Tablet) 25 mg PO Q6H PRN PRN Reason: Anxiety Magnesium Hydroxide (Milk Of Magnesia 30 Ml Oral.Susp) 30 ml PO DAILY PRN PRN Reason: Constipation Last Admin: 02/20/21 15:48 Dose: 30 ml Documented by: Olanzapine (Olanzapine 10 Mg Tablet) 10 mg PO BEDTIME ALEX Last Admin: 02/21/21 20:32 Dose: Not Given Documented by: Trazodone HCl (Trazodone Hcl 50 Mg Tablet) 50 mg PO BEDTIME PRN PRN Reason: Insomnia Allergies Allergies Allergy/AdvReac Type Severity Reaction Status Date / Time No Known Allergies Allergy Verified 02/04/21 00:13 Assessment & Plan Assessment & Plan (1) Schizoaffective disorder, depressive type: Status: Acute Code(s): F25.1 - Schizoaffective disorder, depressive type Assessment and Plan: Pt with hx of schizoaffective disorder PLAN 1. Pt currently declines taking medications. Significant concern as to her ability to care for self including significant loss weight, ability to maintain job due to paranoia, impaired judgment/insight. Appears gravely disable. Decision of team to file for involuntary commitment. 2. Olanzapine offered but pt declines. I spent minutes with the patient and/or on the patient floor today, greater than?50% of which was spent counseling/coordinating care. Reason for contiued inpatient stay Substantial Risk for: inability to function and rapid decompensation
[2021-02-22 20:06] VITALS: BP 107/63; PULSE 91; RESP 18; TEMP 36.6; O2SAT 100
[2021-02-23 06:00] VITALS: BP 119/69; PULSE 119; RESP 16; TEMP 36.6; O2SAT 99
[2021-02-23] MEDS: Magnesium Citrate 300 ML SOLUTION PO (13:18)
--- NOTE | 2021-02-23 20:57 | HO.PSYCHPN ---
Subjective Subjective Date of Service: 02/23/21 Reason For Visit: Psychosis Interim History: Pt continues to stay mostly in room, afraid of coming out of room. Patient paranoid. Very vague and evasive answers to reasons why she is here. Help deal with my life. Help with my anxieties . Denies she isn't eating in spite of nursing report of the same. Patient is paranoid and believes food is poisoned but she denies that and says she is eating. She stands and sways slowly side to side. She reports she has been through a lot. However, pt would not elaborate. Pt more guarded and not fully forthcoming with extend of paranoia. Pt drinking ensure some times, not eating much food does admit worried about being poisoned. She denies SI/HI. Review of Systems Review of Systems CVS: No c/o chest pain, palpitations, no SOB COMMISSION SPECIALIST: No c/o dizziness, headache GI: No c/o Nausea, Vomiting, diarrhea, constipation or heartburn Yes all other systems are reviewed and are negative and Unobtainable due to mental status Reports behavioral changes Psychiatric: Reports abnormal sleep pattern, Reports anxiety, Reports behavioral changes, Reports change in appetite, Reports depression, Reports difficulty concentrating, Reports hopelessness, Reports irritability, Reports anhedonia, Reports paranoia and Reports suicidal ideation (denies) Mental Status Exam Mental Status Exam Narrative: Appearance: casually groomed, fair hygiene in NAD Behavior:very suspicious and paranoid psychomotor: no agitation or retardation noted Speech:clear, soft tone, minimally spontaneous, Thought process:limited to yes and no answers Thought content:suspicious, worried about people following her Mood: okay Affect: suspicious, paranoid SI:denies HI:denies VH/AH:appears internally preoccupied Delusions:paranoia about being monitored, people following her Insight/judgment:impaired x 2. Memory/cog: alert, oriented to month, place, not situation. impaired secondary to psychiatric symptoms. Patient Appearance: Appropriate Patient Orientation: Person, Place, Time and Situation Level of Consciousness: Awake and Alert Patient Behavior: Guarded, Passive, Suspicious, Avoidant, Isolative and Good Eye Contact Mood Description: Depressed and Anxious Affect Description: Flat Patient Cognition Impaired: No Ability to Follow Directions: Good Speech Pattern: Spontaneous Speech and Soft-Spoken Memory Description: Episodic Impaired Diagnostics Vital Signs (24Hr): Vital Signs - 24 hr 02/23/21 06:00 Temperature 97.8 F Pulse Rate 119 H Respiratory Rate 16 Blood Pressure 119/69 Pulse Oximetry 99 Body Mass Index 37.8 Medications Medications Current Medications Acetaminophen (Acetaminophen 325 Mg Tablet) 650 mg PO Q6H PRN PRN Reason: Headache/Pain Mild Scale (1-3) Al Hydroxide/Mg Hydroxide (Magnesium Hydrox/Alum Hydrox 30 Ml Oral.Susp) 30 ml PO Q6H PRN PRN Reason: Heartburn/Nausea Hydroxyzine HCl (Hydroxyzine Hcl 25 Mg Tablet) 25 mg PO Q6H PRN PRN Reason: Anxiety Magnesium Hydroxide (Milk Of Magnesia 30 Ml Oral.Susp) 30 ml PO DAILY PRN PRN Reason: Constipation Last Admin: 02/20/21 15:48 Dose: 30 ml Documented by: Olanzapine (Olanzapine 10 Mg Tablet) 10 mg PO BEDTIME ALEX Last Admin: 02/23/21 20:45 Dose: Not Given Documented by: Trazodone HCl (Trazodone Hcl 50 Mg Tablet) 50 mg PO BEDTIME PRN PRN Reason: Insomnia Allergies Allergies Allergy/AdvReac Type Severity Reaction Status Date / Time No Known Allergies Allergy Verified 02/04/21 00:13 Assessment & Plan Assessment & Plan (1) Schizoaffective disorder, depressive type: Status: Acute Code(s): F25.1 - Schizoaffective disorder, depressive type Assessment and Plan: Pt with hx of schizoaffective disorder PLAN 1. Pt currently declines taking medications. Significant concern as to her ability to care for self including significant loss weight, ability to maintain job due to paranoia, impaired judgment/insight. Appears gravely disable. Decision of team to file for involuntary commitment. 2. Olanzapine offered but pt declines. I spent minutes with the patient and/or on the patient floor today, greater than?50% of which was spent counseling/coordinating care. Reason for contiued inpatient stay Substantial Risk for: harm to self, inability to function and rapid decompensation
[2021-02-24 09:28] VITALS: RESP 16
--- NOTE | 2021-02-24 18:25 | HO.PSYCHPN ---
Subjective Subjective Date of Service: 02/24/21 Reason For Visit: Psychosis Interim History: Patient seen and discussed with team. Patient evaluated this evening and upon interview pt reports im okay. staff submarine warfare officer report recent issue with constipation, was given MOM, stated I don't remember if it helped. T/W asked if she had a bowel movement, pt stated somewhat and currently denies constipation. Pt states she had some ensure for dinner and has had some juices and water, however staff submarine warfare officer report pt has been restricting, not eating. Pt reports sleep is okay however staff submarine warfare officer report she was up all night last night. 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 Continues to present as constricted, internally preoccupied and paranoid towards staff/ peers. Pt reports she feels safe, denies SI/SIB upon inquiry. Mood is sad. Discussed me options but pt reports not right now for if she would trial any psychotropic med to target mood sx or psychosis. She denies having concerns, questions, or anxiety. She is on [place] [address], court pending, has met with her freight representative. Medication Compliance: No Attending Groups: No Review of Systems Acute medical concerns: No Medical Review of Systems: unchanged Mental Status Exam Mental Status Exam Narrative: Appearance: casually groomed, fair hygiene in NAD Behavior:very suspicious and paranoid psychomotor: no agitation or retardation noted Speech:clear, soft tone, minimally spontaneous, Thought process:limited to yes and no answers Thought content:suspicious, worried about people following her Mood: sad Affect: suspicious, paranoid SI:denies HI:denies VH/AH:appears internally preoccupied Delusions:paranoia about being monitored, people following her Insight/judgment:impaired x 2. Memory/cog: alert, oriented to month, place, not situation. impaired secondary to psychiatric symptoms. Diagnostics Vital Signs (24Hr): Vital Signs - 24 hr 02/24/21 09:28 Respiratory Rate 16 Body Mass Index 37.8 Medications Medications Current Medications Acetaminophen (Acetaminophen 325 Mg Tablet) 650 mg PO Q6H PRN PRN Reason: Headache/Pain Mild Scale (1-3) Al Hydroxide/Mg Hydroxide (Magnesium Hydrox/Alum Hydrox 30 Ml Oral.Susp) 30 ml PO Q6H PRN PRN Reason: Heartburn/Nausea Hydroxyzine HCl (Hydroxyzine Hcl 25 Mg Tablet) 25 mg PO Q6H PRN PRN Reason: Anxiety Magnesium Hydroxide (Milk Of Magnesia 30 Ml Oral.Susp) 30 ml PO DAILY PRN PRN Reason: Constipation Last Admin: 02/20/21 15:48 Dose: 30 ml Documented by: Olanzapine (Olanzapine 10 Mg Tablet) 10 mg PO BEDTIME ALEX Last Admin: 02/23/21 20:45 Dose: Not Given Documented by: Trazodone HCl (Trazodone Hcl 50 Mg Tablet) 50 mg PO BEDTIME PRN PRN Reason: Insomnia Allergies Allergies Allergy/AdvReac Type Severity Reaction Status Date / Time No Known Allergies Allergy Verified 02/04/21 00:13 Assessment & Plan Assessment & Plan (1) Schizoaffective disorder, depressive type: Status: Acute Code(s): F25.1 - Schizoaffective disorder, depressive type Assessment and Plan: Pt with hx of schizoaffective disorder PLAN 1. Pt currently declines taking medications. Significant concern as to her ability to care for self including significant loss weight, ability to maintain job due to paranoia, impaired judgment/insight. Appears gravely disable. Decision of team to file for involuntary commitment. 2. Olanzapine offered but pt declines. I spent minutes with the patient and/or on the patient floor today, greater than?50% of which was spent counseling/coordinating care. Patient educated on: medication risk/benefits Reason for contiued inpatient stay Substantial Risk for: inability to function, rapid decompensation and med/psych decompensation
[2021-02-24 22:30] VITALS: RESP 16
--- NOTE | 2021-02-25 08:53 | P.PNPSI_ITS ---
Subjective Subjective Date of Service: 02/25/21 Reason For Visit: Psychosis Subjective Notes: Section 7 Interim History: Patient seen and discussed with team. Patient reports that there is a lot going on in her life. She does not explain or share what is causing so much emotional distress. Pt continues to report that she thinks food is poisoned, that she can't trust anyone here in the unit. She reports she will follow up OP with professional help however, pt has gone to ED twice asking for help and when someone comes to meet with her she declines. Pt continues to decline taking medications. Pt sleep is poor. She is mostly in her room. She does not interact with peers or staff. Sister reports her car is being reposed as she is behind payments for more than one year. 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: No c/o dizziness, headache GI: No c/o Nausea, Vomiting, diarrhea, constipation or heartburn Yes all other systems are reviewed and are negative and Unobtainable due to mental status Reports behavioral changes Psychiatric: Reports abnormal sleep pattern, Reports anxiety, Reports behavioral changes, Reports change in appetite, Reports depression, Reports difficulty concentrating, Reports hopelessness, Reports irritability, Reports anhedonia, Reports paranoia and Reports suicidal ideation (denies) Mental Status Exam Mental Status Exam Narrative: Appearance: casually groomed, fair hygiene in NAD Behavior:very suspicious and paranoid psychomotor: no agitation or retardation noted Speech:clear, soft tone, minimally spontaneous, Thought process:limited to yes and no answers Thought content:suspicious, worried about people following her Mood: sad Affect: suspicious, paranoid SI:denies HI:denies VH/AH:appears internally preoccupied Delusions:paranoia about being monitored, people following her Insight/judgment:impaired x 2. Memory/cog: alert, oriented to month, place, not situation. impaired secondary to psychiatric symptoms. Diagnostics Vital Signs (24Hr): Vital Signs - 24 hr 02/25/21 09:36 02/25/21 20:22 Temperature 98.1 F 98 F Pulse Rate 110 H 112 H Respiratory Rate 16 16 Blood Pressure 129/76 131/83 Pulse Oximetry 100 100 Body Mass Index 37.8 Medications Medications Current Medications Acetaminophen (Acetaminophen 325 Mg Tablet) 650 mg PO Q6H PRN PRN Reason: Headache/Pain Mild Scale (1-3) Al Hydroxide/Mg Hydroxide (Magnesium Hydrox/Alum Hydrox 30 Ml Oral.Susp) 30 ml PO Q6H PRN PRN Reason: Heartburn/Nausea Hydroxyzine HCl (Hydroxyzine Hcl 25 Mg Tablet) 25 mg PO Q6H PRN PRN Reason: Anxiety Magnesium Hydroxide (Milk Of Magnesia 30 Ml Oral.Susp) 30 ml PO DAILY PRN PRN Reason: Constipation Last Admin: 02/20/21 15:48 Dose: 30 ml Documented by: Olanzapine (Olanzapine 10 Mg Tablet) 10 mg PO BEDTIME ALEX Last Admin: 02/25/21 20:53 Dose: Not Given Documented by: Trazodone HCl (Trazodone Hcl 50 Mg Tablet) 50 mg PO BEDTIME PRN PRN Reason: Insomnia Allergies Allergies Allergy/AdvReac Type Severity Reaction Status Date / Time No Known Allergies Allergy Verified 02/04/21 00:13 Assessment & Plan Assessment & Plan (1) Schizoaffective disorder, depressive type: Status: Acute Code(s): F25.1 - Schizoaffective disorder, depressive type Assessment and Plan: Pt with hx of schizoaffective disorder PLAN 1. Pt currently declines taking medications. Significant concern as to her ability to care for self including significant loss weight, ability to maintain job due to paranoia, impaired judgment/insight. Appears gravely disable. Decision of team to file for involuntary commitment. 2. Olanzapine offered but pt declines. I spent minutes with the patient and/or on the patient floor today, greater than?50% of which was spent counseling/coordinating care. Reason for contiued inpatient stay Substantial Risk for: inability to function
[2021-02-25 09:36] VITALS: BP 129/76; PULSE 110; RESP 16; TEMP 36.7; O2SAT 100
[2021-02-25 20:22] VITALS: BP 131/83; PULSE 112; RESP 16; TEMP 36.6; O2SAT 100
--- NOTE | 2021-02-26 11:38 | HO.PSYCHPN ---
Subjective Subjective Date of Service: 02/26/21 Reason For Visit: Psychosis Subjective Notes: Section 7 Interim History: Patient seen and discussed with team. Patient continues to report that she thinks someone is after her and she is worried about food being poisoned. However, pt reports she wants to be discharged home and does not think she needs any treatment. She had reported that she wouldn't feel safe going to her apartment and that she would stay in car- when asked about car pending repossession due to lack of payment and changes of car not being insured as pt has not made payments, pt states she would find a way to return to apartment. Pt also reports abdominal pain, she reports seeing feces coming out of her vagina. Pt initially declining to see BROODMARE FOREMAN, but later agreed to consult. Pt continues to decline medications. Review of Systems Review of Systems CVS: No c/o chest pain, palpitations, no SOB MANAGER DIALYSIS: No c/o dizziness, headache GI: No c/o Nausea, Vomiting, diarrhea, constipation or heartburn Yes all other systems are reviewed and are negative and Unobtainable due to mental status Reports behavioral changes Psychiatric: Reports abnormal sleep pattern, Reports anxiety, Reports behavioral changes, Reports change in appetite, Reports depression, Reports difficulty concentrating, Reports hopelessness, Reports irritability, Reports anhedonia, Reports paranoia and Reports suicidal ideation (denies) Mental Status Exam Mental Status Exam Narrative: Appearance: casually groomed, fair hygiene in NAD Behavior:very suspicious and paranoid psychomotor: no agitation or retardation noted Speech:clear, soft tone, minimally spontaneous, Thought process:limited to yes and no answers Thought content:suspicious, worried about people following her Mood: sad Affect: suspicious, paranoid SI:denies HI:denies VH/AH:appears internally preoccupied Delusions:paranoia about being monitored, people following her Insight/judgment:impaired x 2. Memory/cog: alert, oriented to month, place, not situation. impaired secondary to psychiatric symptoms. Diagnostics Vital Signs (24Hr): Vital Signs - 24 hr 02/25/21 20:22 Temperature 98 F Pulse Rate 112 H Respiratory Rate 16 Blood Pressure 131/83 Pulse Oximetry 100 Body Mass Index 37.8 Medications Medications Current Medications Acetaminophen (Acetaminophen 325 Mg Tablet) 650 mg PO Q6H PRN PRN Reason: Headache/Pain Mild Scale (1-3) Al Hydroxide/Mg Hydroxide (Magnesium Hydrox/Alum Hydrox 30 Ml Oral.Susp) 30 ml PO Q6H PRN PRN Reason: Heartburn/Nausea Hydroxyzine HCl (Hydroxyzine Hcl 25 Mg Tablet) 25 mg PO Q6H PRN PRN Reason: Anxiety Magnesium Hydroxide (Milk Of Magnesia 30 Ml Oral.Susp) 30 ml PO DAILY PRN PRN Reason: Constipation Last Admin: 02/20/21 15:48 Dose: 30 ml Documented by: Olanzapine (Olanzapine 10 Mg Tablet) 10 mg PO BEDTIME ALEX Last Admin: 02/25/21 20:53 Dose: Not Given Documented by: Trazodone HCl (Trazodone Hcl 50 Mg Tablet) 50 mg PO BEDTIME PRN PRN Reason: Insomnia Allergies Allergies Allergy/AdvReac Type Severity Reaction Status Date / Time No Known Allergies Allergy Verified 02/04/21 00:13 Assessment & Plan Assessment & Plan (1) Schizoaffective disorder, depressive type: Status: Acute Code(s): F25.1 - Schizoaffective disorder, depressive type Assessment and Plan: Pt with hx of schizoaffective disorder PLAN 1. Pt currently declines taking medications. Significant concern as to her ability to care for self including significant loss weight, ability to maintain job due to paranoia, impaired judgment/insight. Appears gravely disable. Decision of team to file for involuntary commitment. 2. Olanzapine offered but pt declines. I spent minutes with the patient and/or on the patient floor today, greater than?50% of which was spent counseling/coordinating care. Reason for contiued inpatient stay Substantial Risk for: inability to function
--- NOTE | 2021-02-26 15:27 | MHC.CLN ---
NUTRITION VISITED WITH PATIENT TO DISCUSS DIET AND FOOD CHOICES. REVIEW OF WEIGHT HX SHOWS WEIGHT LOSS OF 10#, 5.3% X 4 MONTHS. CONTINUES TO EAT SMALL AMOUNTS OF FOOD AT MEALS AND TAKES SMALL AMOUNTS OF SUPPLEMENT. WILL TAKE SMALL AMOUNTS OF STRAWBERRY ENSURE. WILL CHANGE TO ENSURE CLEAR TID TO SEE IF LIKES BETTER. CONCERNS OF POISONED FOOD NOT DISCUSSED. RD OFFERED SEALED PREPACKAGED SNACK FOODS IN ADDITION TO MEALS. PATIENT RECEPTIVE TO [facility] SINCE CAN SAVE FOODS FOR LATER IF HUNGRY
[2021-02-26 17:00] VITALS: BMI 32.5
[2021-02-26 18:00] VITALS: RESP 14
--- NOTE | 2021-02-26 18:49 | PC.NURSE ---
Patient requested to speak to nurse, reported there is something supernatural happening here I don't know who to talk to . It is hard to talk about . Patient unable to express what she was referencing. Asked for ice, then said no forget it stating she would just use water . Asked if security was here although at this time did not wish to see them. Stated she would wait and talk with her doctor tomorrow.
--- NOTE | 2021-02-27 10:11 | HO.PSYCHPN ---
Subjective Subjective Date of Service: 02/27/21 Reason For Visit: Psychosis Subjective Notes: Section 7 Interim History: Patient seen and discussed with team. Pt court hearing was today. Pt was committed for involuntary treatment. Pt continues to present as guarded, suspicious. Pt minimally eating, not sleep well. Pt denies SI/HI. She reports feeling anxious. She does not elaborate much as to why she is feeling this way. Pt upset about being in hospital. She reports not trusting staff here but open to seek help OP. Per nursing, in her room not interacting much with peers or staff. Pt's hand very dry due to excessive hand washing, pt reports worried about germs. 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: No c/o dizziness, headache GI: No c/o Nausea, Vomiting, diarrhea, constipation or heartburn Yes all other systems are reviewed and are negative and Unobtainable due to mental status Reports behavioral changes Psychiatric: Reports abnormal sleep pattern, Reports anxiety, Reports behavioral changes, Reports change in appetite, Reports depression, Reports difficulty concentrating, Reports hopelessness, Reports irritability, Reports anhedonia, Reports paranoia and Reports suicidal ideation (denies) Mental Status Exam Mental Status Exam Narrative: Appearance: casually groomed, fair hygiene in NAD Behavior:very suspicious and paranoid psychomotor: no agitation or retardation noted Speech:clear, soft tone, minimally spontaneous, Thought process:limited to yes and no answers Thought content:suspicious, worried about people following her Mood: sad Affect: suspicious, paranoid SI:denies HI:denies VH/AH:appears internally preoccupied Delusions:paranoia about being monitored, people following her Insight/judgment:impaired x 2. Memory/cog: alert, oriented to month, place, not situation. impaired secondary to psychiatric symptoms. Diagnostics Vital Signs (24Hr): Body Mass Index 32.5 Imaging Radiology Impressions: ITS Impressions KUB X-Ray 02/28/21 15:30 IMPRESSION: Large amount of stool throughout the colon suggestive of constipation. No evidence of obstruction. Medications Medications Current Medications Acetaminophen (Acetaminophen 325 Mg Tablet) 650 mg PO Q6H PRN PRN Reason: Headache/Pain Mild Scale (1-3) Al Hydroxide/Mg Hydroxide (Magnesium Hydrox/Alum Hydrox 30 Ml Oral.Susp) 30 ml PO Q6H PRN PRN Reason: Heartburn/Nausea Hydroxyzine HCl (Hydroxyzine Hcl 25 Mg Tablet) 25 mg PO Q6H PRN PRN Reason: Anxiety Magnesium Hydroxide (Milk Of Magnesia 30 Ml Oral.Susp) 30 ml PO DAILY PRN PRN Reason: Constipation Last Admin: 02/20/21 15:48 Dose: 30 ml Documented by: Olanzapine (Olanzapine 10 Mg Tablet) 10 mg PO BEDTIME ALEX Last Admin: 02/28/21 22:22 Dose: 10 mg Documented by: Olanzapine (Olanzapine 10 Mg Vial) 10 mg IM BEDTIME PRN PRN Reason: if pt refuses oral olanzapine Trazodone HCl (Trazodone Hcl 50 Mg Tablet) 50 mg PO BEDTIME PRN PRN Reason: Insomnia Allergies Allergies Allergy/AdvReac Type Severity Reaction Status Date / Time No Known Allergies Allergy Verified 02/04/21 00:13 Assessment & Plan Assessment & Plan (1) Schizoaffective disorder, depressive type: Status: Acute Code(s): F25.1 - Schizoaffective disorder, depressive type Assessment and Plan: Pt with hx of schizoaffective disorder PLAN 1. Section 8 commitment on 02/[address] Olanzapine 10mg po QHS, if refuses oral may give Olanzapine 10mg IM qhs. 3. Aftercare planning. I spent minutes with the patient and/or on the patient floor today, greater than?50% of which was spent counseling/coordinating care. Reason for contiued inpatient stay Substantial Risk for: inability to function
[2021-02-27 18:00] VITALS: RESP 16
[2021-02-28 06:00] VITALS: RESP 18
--- NOTE | 2021-02-28 10:15 | HO.PSYCHPN ---
Subjective Subjective Date of Service: 02/28/21 Reason For Visit: Psychosis Subjective Notes: Section 8 Interim History: Patient seen and discussed with team. Pt continues to present as guarded, suspicious. Pt minimally eating, not sleep well. Pt denies SI/HI. She reports feeling anxious. She does not elaborate much as to why she is feeling this way. Pt upset about being in hospital. She reports not trusting staff here but open to seek help OP. Per nursing, in her room not interacting much with peers or staff. Pt's hand very dry due to excessive hand washing, pt reports worried about germs. Review of Systems Review of Systems CVS: No c/o chest pain, palpitations, no SOB BATTERY CONTAINER TESTER: No c/o dizziness, headache GI: No c/o Nausea, Vomiting, diarrhea, constipation or heartburn Yes all other systems are reviewed and are negative and Unobtainable due to mental status Reports behavioral changes Psychiatric: Reports abnormal sleep pattern, Reports anxiety, Reports behavioral changes, Reports change in appetite, Reports depression, Reports difficulty concentrating, Reports hopelessness, Reports irritability, Reports anhedonia, Reports paranoia and Reports suicidal ideation (denies) Mental Status Exam Mental Status Exam Narrative: Appearance: casually groomed, fair hygiene in NAD Behavior:very suspicious and paranoid psychomotor: no agitation or retardation noted Speech:clear, soft tone, minimally spontaneous, Thought process:limited to yes and no answers Thought content:suspicious, worried about people following her Mood: sad Affect: suspicious, paranoid SI:denies HI:denies VH/AH:appears internally preoccupied Delusions:paranoia about being monitored, people following her Insight/judgment:impaired x 2. Memory/cog: alert, oriented to month, place, not situation. impaired secondary to psychiatric symptoms. Diagnostics Vital Signs (24Hr): Body Mass Index 32.5 Imaging Radiology Impressions: ITS Impressions KUB X-Ray 02/28/21 15:30 IMPRESSION: Large amount of stool throughout the colon suggestive of constipation. No evidence of obstruction. Medications Medications Current Medications Acetaminophen (Acetaminophen 325 Mg Tablet) 650 mg PO Q6H PRN PRN Reason: Headache/Pain Mild Scale (1-3) Al Hydroxide/Mg Hydroxide (Magnesium Hydrox/Alum Hydrox 30 Ml Oral.Susp) 30 ml PO Q6H PRN PRN Reason: Heartburn/Nausea Hydroxyzine HCl (Hydroxyzine Hcl 25 Mg Tablet) 25 mg PO Q6H PRN PRN Reason: Anxiety Magnesium Hydroxide (Milk Of Magnesia 30 Ml Oral.Susp) 30 ml PO DAILY PRN PRN Reason: Constipation Last Admin: 02/20/21 15:48 Dose: 30 ml Documented by: Olanzapine (Olanzapine 10 Mg Tablet) 10 mg PO BEDTIME ALEX Last Admin: 02/28/21 22:22 Dose: 10 mg Documented by: Olanzapine (Olanzapine 10 Mg Vial) 10 mg IM BEDTIME PRN PRN Reason: if pt refuses oral olanzapine Trazodone HCl (Trazodone Hcl 50 Mg Tablet) 50 mg PO BEDTIME PRN PRN Reason: Insomnia Allergies Allergies Allergy/AdvReac Type Severity Reaction Status Date / Time No Known Allergies Allergy Verified 02/04/21 00:13 Assessment & Plan Assessment & Plan (1) Schizoaffective disorder, depressive type: Status: Acute Code(s): F25.1 - Schizoaffective disorder, depressive type Assessment and Plan: Pt with hx of schizoaffective disorder PLAN 1. Section 8 commitment on 02/[address] Olanzapine 10mg po QHS, if refuses oral may give Olanzapine 10mg IM qhs. 3. Aftercare planning. I spent minutes with the patient and/or on the patient floor today, greater than?50% of which was spent counseling/coordinating care. Reason for contiued inpatient stay Substantial Risk for: inability to function
--- NOTE | 2021-02-28 14:58 | MHC.CLN ---
F/U FOLLOW UP VISIT WITH PATIENT. SAID THAT HAS NOT TRIED THE ENSURE CLEAR AND HAS NOT RECEIVED PREPACKAGED FOOD. SAW SEALED PACKAGE OF CEREAL IN ROOM. DISCUSSED WITH NURSE THAT PLAN IS FOR ENSURE CLEAR AND KITCHEN TO PROVIDE SOME SEALED/PREPACKAGED FOODS. PATIENT REPORTS NO APPETITE . CONTINUE TO FOLLOW INTAKE AND FOOD CHOICES.
[2021-02-28] MEDS: OLANZapine 10 MG TABLET PO (22:22)
--- NOTE | 2021-03-01 16:23 | HO.PSYCHPN ---
Subjective Subjective Date of Service: 03/01/21 Reason For Visit: Psychosis Interim History: pt found lying in her bed late morning. she declines interview but answers MD's few questions posed in her room. she denies any urgent needs and is informed to contact nursing staff if that should change. per staff pt became agitated when she was told she could not use the wipes. anx 11/09, dep 11/09. denies SI/HI/AVH. c/o stomach ache. took PO zyprexa only upon seeing the drawn up IM dose. Mental Status Exam Mental Status Exam Narrative: Appearance: casually groomed, fair hygiene in NAD Behavior:very suspicious and paranoid psychomotor: no agitation or retardation noted Speech:clear, soft tone, minimally spontaneous, Thought process:limited to yes and no answers Thought content: declining interview Mood: not assessed Affect: suspicious, paranoid Insight/judgment:impaired x 2. Diagnostics Vital Signs (24Hr): Body Mass Index 32.5 Imaging Radiology Impressions: ITS Impressions KUB X-Ray 02/28/21 15:30 IMPRESSION: Large amount of stool throughout the colon suggestive of constipation. No evidence of obstruction. Medications Medications Current Medications Acetaminophen (Acetaminophen 325 Mg Tablet) 650 mg PO Q6H PRN PRN Reason: Headache/Pain Mild Scale (1-3) Al Hydroxide/Mg Hydroxide (Magnesium Hydrox/Alum Hydrox 30 Ml Oral.Susp) 30 ml PO Q6H PRN PRN Reason: Heartburn/Nausea Docusate Sodium (Docusate Sodium 100 Mg Capsule) 100 mg PO BID ALEX Hydroxyzine HCl (Hydroxyzine Hcl 25 Mg Tablet) 25 mg PO Q6H PRN PRN Reason: Anxiety Magnesium Hydroxide (Milk Of Magnesia 30 Ml Oral.Susp) 30 ml PO DAILY PRN PRN Reason: Constipation Last Admin: 02/20/21 15:48 Dose: 30 ml Documented by: Mineral Oil (Mineral Oil Enema 133 Ml Enema) 133 ml [place] ONCE PRN PRN Reason: constipation Olanzapine (Olanzapine 10 Mg Vial) 10 mg IM BEDTIME PRN PRN Reason: if pt refuses oral olanzapine Olanzapine (Olanzapine Odt 10 Mg Tab.Rapdis) 10 mg TRANSLINGU BEDTIME ALEX Polyethylene Glycol (Polyethylene Glycol 3350 17 Gm Powd.Pack) 17 gm PO DAILY ALEX Trazodone HCl (Trazodone Hcl 50 Mg Tablet) 50 mg PO BEDTIME PRN PRN Reason: Insomnia Allergies Allergies Allergy/AdvReac Type Severity Reaction Status Date / Time No Known Allergies Allergy Verified 02/04/21 00:13 Assessment & Plan Assessment & Plan (1) Schizoaffective disorder, depressive type: Status: Acute Code(s): F25.1 - Schizoaffective disorder, depressive type Assessment and Plan: Pt with hx of schizoaffective disorder PLAN 1. Section 8 commitment on 02/[address] Olanzapine 10mg po QHS, if refuses oral may give Olanzapine 10mg IM qhs. 3. Aftercare planning. I spent minutes with the patient and/or on the patient floor today, greater than?50% of which was spent counseling/coordinating care. Reason for contiued inpatient stay Substantial Risk for: harm to self, inability to function and rapid decompensation
[2021-03-01] MEDS: Docusate Sodium 100 MG CAPSULE PO (16:35)
[2021-03-01] MEDS: OLANZapine ODT 10 MG TAB.RAPDIS TRANSLINGU (20:11)
--- NOTE | 2021-03-02 18:36 | HO.PSYCHPN ---
Subjective Subjective Date of Service: 03/02/21 Reason For Visit: Psychosis Interim History: pt had long visit with her sister this morning, seen shortly after the conclusion of the visit. she came to the interview room for discussion and stood throughout the interview despite this show card writer's sitting at the table. broached her taking the zyprexa and she stated she wasn't sure if it was changing anything for her. she did not report any side effects. she stated she is upset she is unable to have wipes and reported her request was for medical reasons - her skin is very dry and easily irritated and it is harmful when she wipes with regular paper (implying toilet paper). she requested to speak with the community health advisor regarding this policy and was informed to ask to speak with Gabrielle tomorrow morning. per staff, isolating and eating very little. refused mag citrate. c/o stomach pain. anx/dep 11/09. no SI/HI. sister visited yesterday and brought wipes, which were confiscated. taking zydis at HS. slept about 6 hours overnight. Mental Status Exam Mental Status Exam Narrative: Appearance: casually groomed, fair hygiene in NAD Behavior:very suspicious and paranoid psychomotor: no agitation or retardation noted Speech:clear, soft tone, minimally spontaneous, Thought process: linear and logical, vague Thought content: wipes Mood: not assessed Affect: suspicious, paranoid Insight/judgment:impaired x 2. Diagnostics Vital Signs (24Hr): Body Mass Index 32.5 Imaging Radiology Impressions: ITS Impressions KUB X-Ray 02/28/21 15:30 IMPRESSION: Large amount of stool throughout the colon suggestive of constipation. No evidence of obstruction. Medications Medications Current Medications Acetaminophen (Acetaminophen 325 Mg Tablet) 650 mg PO Q6H PRN PRN Reason: Headache/Pain Mild Scale (1-3) Al Hydroxide/Mg Hydroxide (Magnesium Hydrox/Alum Hydrox 30 Ml Oral.Susp) 30 ml PO Q6H PRN PRN Reason: Heartburn/Nausea Docusate Sodium (Docusate Sodium 100 Mg Capsule) 100 mg PO BID ALEX Last Admin: 03/02/21 11:44 Dose: Not Given Documented by: Hydroxyzine HCl (Hydroxyzine Hcl 25 Mg Tablet) 25 mg PO Q6H PRN PRN Reason: Anxiety Magnesium Hydroxide (Milk Of Magnesia 30 Ml Oral.Susp) 30 ml PO DAILY PRN PRN Reason: Constipation Last Admin: 02/20/21 15:48 Dose: 30 ml Documented by: Mineral Oil (Mineral Oil Enema 133 Ml Enema) 133 ml [place] ONCE PRN PRN Reason: constipation Olanzapine (Olanzapine 10 Mg Vial) 10 mg IM BEDTIME PRN PRN Reason: if pt refuses oral olanzapine Olanzapine (Olanzapine Odt 10 Mg Tab.Rapdis) 10 mg TRANSLINGU BEDTIME ALEX Last Admin: 03/01/21 20:11 Dose: 10 mg Documented by: Polyethylene Glycol (Polyethylene Glycol 3350 17 Gm Powd.Pack) 17 gm PO DAILY ALEX Last Admin: 03/02/21 11:44 Dose: Not Given Documented by: Trazodone HCl (Trazodone Hcl 50 Mg Tablet) 50 mg PO BEDTIME PRN PRN Reason: Insomnia Allergies Allergies Allergy/AdvReac Type Severity Reaction Status Date / Time No Known Allergies Allergy Verified 02/04/21 00:13 Assessment & Plan Assessment & Plan (1) Schizoaffective disorder, depressive type: Status: Acute Code(s): F25.1 - Schizoaffective disorder, depressive type Assessment and Plan: Pt with hx of schizoaffective disorder PLAN 1. Section 8 commitment on 02/[address] Olanzapine 10mg po QHS, if refuses oral may give Olanzapine 10mg IM qhs. 3. Aftercare planning. I spent minutes with the patient and/or on the patient floor today, greater than?50% of which was spent counseling/coordinating care. Reason for contiued inpatient stay Substantial Risk for: inability to function and rapid decompensation
[2021-03-02] MEDS: OLANZapine ODT 10 MG TAB.RAPDIS TRANSLINGU (20:32)
[2021-03-02] MEDS: Docusate Sodium 100 MG CAPSULE PO (20:33)
[2021-03-03 08:46] VITALS: BP 107/64; PULSE 114; RESP 17; TEMP 36.6; O2SAT 98
[2021-03-03] MEDS: Docusate Sodium 100 MG CAPSULE PO ×2 (08:54→21:12)
--- NOTE | 2021-03-03 14:42 | P.PNPSI_ITS ---
Subjective Subjective Date of Service: 03/03/21 Reason For Visit: Psychosis Subjective Notes: Section 8 Interim History: Pt continues to report constipation, hesitant about suppository. Pt continues to present as guarded, suspicious, mostly in her room. She continues to eat minimally, suspicious about the food. She denies SI/HI. Appears internally preoccupied. 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: No c/o dizziness, headache GI: No c/o Nausea, Vomiting, diarrhea, constipation or heartburn Yes all other systems are reviewed and are negative and Unobtainable due to mental status Reports behavioral changes Psychiatric: Reports abnormal sleep pattern, Reports anxiety, Reports behavioral changes, Reports change in appetite, Reports depression, Reports difficulty concentrating, Reports hopelessness, Reports irritability, Reports anhedonia, Reports paranoia and Reports suicidal ideation (denies) Mental Status Exam Mental Status Exam Narrative: Appearance: casually groomed, fair hygiene in NAD Behavior:very suspicious and paranoid psychomotor: no agitation or retardation noted Speech:clear, soft tone, minimally spontaneous, Thought process: linear and logical, vague Thought content: wipes Mood: not assessed Affect: suspicious, paranoid Insight/judgment:impaired x 2. Diagnostics Vital Signs (24Hr): Vital Signs - 24 hr 03/03/21 08:46 Temperature 97.8 F Pulse Rate 114 H Respiratory Rate 17 Blood Pressure 107/64 Pulse Oximetry 98 Body Mass Index 32.5 Imaging Radiology Impressions: ITS Impressions KUB X-Ray 02/28/21 15:30 IMPRESSION: Large amount of stool throughout the colon suggestive of constipation. No evidence of obstruction. Medications Medications Current Medications Acetaminophen (Acetaminophen 325 Mg Tablet) 650 mg PO Q6H PRN PRN Reason: Headache/Pain Mild Scale (1-3) Al Hydroxide/Mg Hydroxide (Magnesium Hydrox/Alum Hydrox 30 Ml Oral.Susp) 30 ml PO Q6H PRN PRN Reason: Heartburn/Nausea Docusate Sodium (Docusate Sodium 100 Mg Capsule) 100 mg PO BID ALEX Last Admin: 03/03/21 08:54 Dose: 100 mg Documented by: Glycerin (Glycerin Adult Supp.Rect) 1 supp [place] DAILY PRN PRN Reason: Constipation Hydroxyzine HCl (Hydroxyzine Hcl 25 Mg Tablet) 25 mg PO Q6H PRN PRN Reason: Anxiety Magnesium Hydroxide (Milk Of Magnesia 30 Ml Oral.Susp) 30 ml PO DAILY PRN PRN Reason: Constipation Last Admin: 02/20/21 15:48 Dose: 30 ml Documented by: Mineral Oil (Mineral Oil Enema 133 Ml Enema) 133 ml [place] ONCE PRN PRN Reason: constipation Olanzapine (Olanzapine 10 Mg Vial) 10 mg IM BEDTIME PRN PRN Reason: if pt refuses oral olanzapine Olanzapine (Olanzapine Odt 10 Mg Tab.Rapdis) 15 mg TRANSLINGU BEDTIME ALEX Polyethylene Glycol (Polyethylene Glycol 3350 17 Gm Powd.Pack) 17 gm PO DAILY ALEX Last Admin: 03/03/21 09:12 Dose: Not Given Documented by: Trazodone HCl (Trazodone Hcl 50 Mg Tablet) 50 mg PO BEDTIME PRN PRN Reason: Insomnia Allergies Allergies Allergy/AdvReac Type Severity Reaction Status Date / Time No Known Allergies Allergy Verified 02/04/21 00:13 Assessment & Plan Assessment & Plan (1) Schizoaffective disorder, depressive type: Status: Acute Code(s): F25.1 - Schizoaffective disorder, depressive type Assessment and Plan: Pt with hx of schizoaffective disorder PLAN 1. Section 8 commitment on 02/[address] order Olanzapine 10mg po QHS, if refuses oral may give Olanzapine 10mg IM qhs. 3. Aftercare planning. I spent minutes with the patient and/or on the patient floor today, greater than?50% of which was spent counseling/coordinating care. Reason for contiued inpatient stay Substantial Risk for: inability to function
[2021-03-03 18:00] VITALS: BP 116/77; PULSE 86; RESP 17; TEMP 36.2; O2SAT 99
[2021-03-03] MEDS: OLANZapine ODT 10 MG TAB.RAPDIS 15 MG TRANSLINGU (21:13)
[2021-03-04 09:45] VITALS: BP 113/70; PULSE 66; RESP 16; TEMP 36.8; O2SAT 99
[2021-03-04] MEDS: Docusate Sodium 100 MG CAPSULE PO ×2 (09:55→22:26)
--- NOTE | 2021-03-04 12:38 | HO.PSYCHPN ---
Subjective Subjective Date of Service: 03/04/21 Reason For Visit: Psychosis Subjective Notes: Conditional Voluntary Interim History: Pt continues to present as guarded, limited oral intake. She continues to report constipation but declines suppository or enema, she also declined miralax this morning. She is not fully forthcoming but suspect underlying paranoia and suspicious as underlying cause of declining tx with minimal side effects for constipation. Pt has been mostly in her room, minimally interactive with peers. We discussed that Olanzapine may worsened constipation. Pt also reports feeling dizzy with this medications. We discussed switching to haldol. 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: No c/o dizziness, headache GI: No c/o Nausea, Vomiting, diarrhea, constipation or heartburn Yes all other systems are reviewed and are negative and Unobtainable due to mental status Reports behavioral changes Psychiatric: Reports abnormal sleep pattern, Reports anxiety, Reports behavioral changes, Reports change in appetite, Reports depression, Reports difficulty concentrating, Reports hopelessness, Reports irritability, Reports anhedonia, Reports paranoia and Reports suicidal ideation (denies) Mental Status Exam Mental Status Exam Narrative: Appearance: casually groomed, fair hygiene in NAD Behavior:very suspicious and paranoid psychomotor: no agitation or retardation noted Speech:clear, less delayed response rate, soft, spontaneous Thought process: linear Thought content: wanting to go home, feeling anxious Mood: uncomfortable Affect: suspicious, paranoid AH/VH: denies Insight/judgment:impaired x 2. Memory/cog: alert, oriented x 3. Diagnostics Vital Signs (24Hr): Vital Signs - 24 hr 03/03/21 18:00 03/04/21 09:45 Temperature 97.1 F 98.3 F Pulse Rate 86 66 Respiratory Rate 17 16 Blood Pressure 116/77 113/70 Pulse Oximetry 99 99 Body Mass Index 32.5 Imaging Radiology Impressions: ITS Impressions KUB X-Ray 02/28/21 15:30 IMPRESSION: Large amount of stool throughout the colon suggestive of constipation. No evidence of obstruction. Medications Medications Current Medications Acetaminophen (Acetaminophen 325 Mg Tablet) 650 mg PO Q6H PRN PRN Reason: Headache/Pain Mild Scale (1-3) Al Hydroxide/Mg Hydroxide (Magnesium Hydrox/Alum Hydrox 30 Ml Oral.Susp) 30 ml PO Q6H PRN PRN Reason: Heartburn/Nausea Docusate Sodium (Docusate Sodium 100 Mg Capsule) 100 mg PO BID [facility] Last Admin: 03/04/21 09:55 Dose: 100 mg Documented by: Glycerin (Glycerin Adult Supp.Rect) 1 supp [place] DAILY PRN PRN Reason: Constipation Haloperidol (Haloperidol 5 Mg Tablet) 5 mg PO BEDTIME ALEX Haloperidol Lactate (Haloperidol Lactate 5 Mg/Ml Vial) 5 mg IM BEDTIME PRN PRN Reason: if refuses oral per court Hydroxyzine HCl (Hydroxyzine Hcl 25 Mg Tablet) 25 mg PO Q6H PRN PRN Reason: Anxiety Lactulose (Lactulose 20 Gm/30 Ml Solution) 20 gm PO TID [facility] Magnesium Hydroxide (Milk Of Magnesia 30 Ml Oral.Susp) 30 ml PO DAILY PRN PRN Reason: Constipation Last Admin: 02/20/21 15:48 Dose: 30 ml Documented by: Mineral Oil (Mineral Oil Enema 133 Ml Enema) 133 ml [place] ONCE PRN PRN Reason: constipation Polyethylene Glycol (Polyethylene Glycol 3350 17 Gm Powd.Pack) 17 gm PO DAILY [facility] Last Admin: 03/04/21 10:40 Dose: Not Given Documented by: Trazodone HCl (Trazodone Hcl 50 Mg Tablet) 50 mg PO BEDTIME PRN PRN Reason: Insomnia Allergies Allergies Allergy/AdvReac Type Severity Reaction Status Date / Time No Known Allergies Allergy Verified 02/04/21 00:13 Assessment & Plan Assessment & Plan (1) Schizoaffective disorder, depressive type: Status: Acute Code(s): F25.1 - Schizoaffective disorder, depressive type Assessment and Plan: Pt with hx of schizoaffective disorder PLAN 1. Section 8 commitment on 02/27 2. Switch olanzapine to haldol 5mg po qhs due to constipation/dizziness, if refuses oral may give Olanzapine 10mg IM qhs. 3. Aftercare planning. I spent minutes with the patient and/or on the patient floor today, greater than?50% of which was spent counseling/coordinating care. Reason for contiued inpatient stay Substantial Risk for: inability to function
[2021-03-04] MEDS: Lactulose 20 GM/30 ML SOLUTION PO ×2 (15:47→22:27)
[2021-03-04] MEDS: HaloperidoL 5 MG TABLET PO (22:26)
[2021-03-05 08:35] VITALS: BP 119/72; PULSE 110; RESP 16; TEMP 36.4; O2SAT 97
[2021-03-05] MEDS: Glycerin Adult SUPP.RECT 1 SUPP PR (09:25)
[2021-03-05] MEDS: Acetaminophen 325 MG TABLET 650 MG PO (13:35)
--- NOTE | 2021-03-05 13:53 | HO.PSYCHPN ---
Subjective Subjective Date of Service: 03/05/21 Reason For Visit: Psychosis Subjective Notes: Section 8 Interim History: Pt continues to present as guarded, anxious about germs, infection. Did agree to have suppository for constipation, declined enema, small bowel movement. Pt did not sleep well last night. She has been in her room. She denies SI/HI. Mental Status Exam Mental Status Exam Narrative: Appearance: casually groomed, fair hygiene in NAD Behavior:very suspicious and paranoid psychomotor: no agitation or retardation noted Speech:clear, less delayed response rate, soft, spontaneous Thought process: linear Thought content: wanting to go home, feeling anxious Mood: uncomfortable Affect: suspicious, paranoid AH/VH: denies Insight/judgment:impaired x 2. Memory/cog: alert, oriented x 3. Diagnostics Vital Signs (24Hr): Vital Signs - 24 hr 03/05/21 08:35 Temperature 97.5 F Pulse Rate 110 H Respiratory Rate 16 Blood Pressure 119/72 Pulse Oximetry 97 Body Mass Index 32.5 Imaging Radiology Impressions: ITS Impressions KUB X-Ray 02/28/21 15:30 IMPRESSION: Large amount of stool throughout the colon suggestive of constipation. No evidence of obstruction. Medications Medications Current Medications Acetaminophen (Acetaminophen 325 Mg Tablet) 650 mg PO Q6H PRN PRN Reason: Headache/Pain Mild Scale (1-3) Last Admin: 03/05/21 13:35 Dose: 650 mg Documented by: Al Hydroxide/Mg Hydroxide (Magnesium Hydrox/Alum Hydrox 30 Ml Oral.Susp) 30 ml PO Q6H PRN PRN Reason: Heartburn/Nausea Benztropine Mesylate (Benztropine Mesylate 1 Mg Tablet) 1 mg PO BID PRN PRN Reason: EPS Docusate Sodium (Docusate Sodium 100 Mg Capsule) 100 mg PO BID [facility] Last Admin: 03/05/21 10:14 Dose: Not Given Documented by: Glycerin (Glycerin Adult Supp.Rect) 1 supp [place] DAILY PRN PRN Reason: Constipation Last Admin: 03/05/21 09:25 Dose: 1 supp Documented by: Haloperidol (Haloperidol 5 Mg Tablet) 5 mg PO BEDTIME [facility] Last Admin: 03/04/21 22:26 Dose: 5 mg Documented by: Haloperidol Lactate (Haloperidol Lactate 5 Mg/Ml Vial) 5 mg IM BEDTIME PRN PRN Reason: if refuses oral per court Hydroxyzine HCl (Hydroxyzine Hcl 25 Mg Tablet) 25 mg PO Q6H PRN PRN Reason: Anxiety Lactulose (Lactulose 20 Gm/30 Ml Solution) 20 gm PO TID [facility] Last Admin: 03/05/21 16:11 Dose: Not Given Documented by: Magnesium Hydroxide (Milk Of Magnesia 30 Ml Oral.Susp) 30 ml PO DAILY PRN PRN Reason: Constipation Last Admin: 02/20/21 15:48 Dose: 30 ml Documented by: Mineral Oil (Mineral Oil Enema 133 Ml Enema) 133 ml [place] ONCE PRN PRN Reason: constipation Polyethylene Glycol (Polyethylene Glycol 3350 17 Gm Powd.Pack) 17 gm PO DAILY [facility] Last Admin: 03/05/21 10:15 Dose: Not Given Documented by: Trazodone HCl (Trazodone Hcl 50 Mg Tablet) 50 mg PO BEDTIME PRN PRN Reason: Insomnia Allergies Allergies Allergy/AdvReac Type Severity Reaction Status Date / Time No Known Allergies Allergy Verified 02/04/21 00:13 Assessment & Plan Assessment & Plan (1) Schizoaffective disorder, depressive type: Status: Acute Code(s): F25.1 - Schizoaffective disorder, depressive type Assessment and Plan: Pt with hx of schizoaffective disorder PLAN 1. Section 8 commitment on 02/27 2. Switch olanzapine to haldol 5mg po qhs due to constipation/dizziness, if refuses oral may give Olanzapine 10mg IM qhs. 3. Aftercare planning. I spent minutes with the patient and/or on the patient floor today, greater than?50% of which was spent counseling/coordinating care. Reason for contiued inpatient stay Substantial Risk for: inability to function
--- NOTE | 2021-03-05 16:00 | MHC.CLN ---
F/U PATIENT HAS SUPPLY OF PREWRAPPED SNACKS IN HER ROOM, SHE STATED THAT FAMILY BROUGHT THEM. CONTINUE TO MONITOR INTAKE.
[2021-03-05] MEDS: Mineral OiL enema 133 ML ENEMA PR (21:15)
[2021-03-05 21:50] VITALS: BP 127/73; PULSE 97; TEMP 36.8; O2SAT 96
[2021-03-05] MEDS: HaloperidoL 5 MG TABLET PO (22:23)
[2021-03-05] MEDS: Docusate Sodium 100 MG CAPSULE PO (22:26)
[2021-03-06] MEDS: Acetaminophen 325 MG TABLET 650 MG PO ×2 (11:58→20:37)
--- NOTE | 2021-03-06 14:40 | P.PNPSI_ITS ---
Subjective Subjective Date of Service: 03/06/21 Reason For Visit: Psychosis Subjective Notes: Section 8 Interim History: Pt continues to present as guarded, anxious about germs, infection. Did agree to have suppository and enema with minimal to no effect. Pt continues to report abdominal pain- hospitalist consulted. Pt mostly in her room, not eating much, sleeping with mask on, washing hands, suspicious about food and others in the unit. Pt did not sleep well last night. She has been in her room. She denies SI/HI. Review of Systems Review of Systems CVS: No c/o chest pain, palpitations, no SOB CREDIT COUNSELOR: No c/o dizziness, headache GI: No c/o Nausea, Vomiting, diarrhea, constipation or heartburn Yes all other systems are reviewed and are negative and Unobtainable due to men cristofer status Reports behavioral changes Psychiatric: Reports abnormal sleep pattern, Reports anxiety, Reports behavioral changes, Reports change in appetite, Reports depression, Reports difficulty concentrating, Reports hopelessness, Reports irritability, Reports anhedonia, Reports paranoia and Reports suicidal ideation (denies) Mental Status Exam Mental Status Exam Narrative: Appearance: casually groomed, fair hygiene in NAD Behavior:very suspicious and paranoid psychomotor: no agitation or retardation noted Speech:clear, less delayed response rate, soft, spontaneous Thought process: linear Thought content: wanting to go home, feeling anxious Mood: uncomfortable Affect: suspicious, paranoid AH/VH: denies Insight/judgment:impaired x 2. Memory/cog: alert, oriented x 3. Diagnostics Vital Signs (24Hr): Vital Signs - 24 hr 03/05/21 21:50 Temperature 98.2 F Pulse Rate 97 Blood Pressure 127/73 Pulse Oximetry 96 Body Mass Index 32.5 Imaging Radiology Impressions: ITS Impressions KUB X-Ray 02/28/21 15:30 IMPRESSION: Large amount of stool throughout the colon suggestive of constipation. No evidence of obstruction. Medications Medications Current Medications Acetaminophen (Acetaminophen 325 Mg Tablet) 650 mg PO Q6H PRN PRN Reason: Headache/Pain Mild Scale (1-3) Last Admin: 03/06/21 11:58 Dose: 650 mg Documented by: Al Hydroxide/Mg Hydroxide (Magnesium Hydrox/Alum Hydrox 30 Ml Oral.Susp) 30 ml PO Q6H PRN PRN Reason: Heartburn/Nausea Benztropine Mesylate (Benztropine Mesylate 1 Mg Tablet) 1 mg PO BID PRN PRN Reason: EPS Docusate Sodium (Docusate Sodium 100 Mg Capsule) 100 mg PO BID [facility] Last Admin: 03/06/21 11:28 Dose: Not Given Documented by: Glycerin (Glycerin Adult Supp.Rect) 1 supp MD DAILY PRN PRN Reason: Constipation Last Admin: 03/05/21 09:25 Dose: 1 supp Documented by: Haloperidol (Haloperidol 5 Mg Tablet) 5 mg PO BEDTIME [facility] Last Admin: 03/05/21 22:23 Dose: 5 mg Documented by: Haloperidol Lactate (Haloperidol Lactate 5 Mg/Ml Vial) 5 mg IM BEDTIME PRN PRN Reason: if refuses oral per court Hydroxyzine HCl (Hydroxyzine Hcl 25 Mg Tablet) 25 mg PO Q6H PRN PRN Reason: Anxiety Lactulose (Lactulose 20 Gm/30 Ml Solution) 20 gm PO TID [facility] Last Admin: 03/06/21 16:16 Dose: Not Given Documented by: Magnesium Hydroxide (Milk Of Magnesia 30 Ml Oral.Susp) 30 ml PO DAILY PRN PRN Reason: Constipation Last Admin: 02/20/21 15:48 Dose: 30 ml Documented by: Mineral Oil (Mineral Oil Enema 133 Ml Enema) 133 ml MD ONCE PRN PRN Reason: constipation Last Admin: 03/05/21 21:15 Dose: 133 ml Documented by: Polyethylene Glycol (Polyethylene Glycol 3350 17 Gm Powd.Pack) 17 gm PO DAILY [facility] Last Admin: 03/06/21 11:28 Dose: Not Given Documented by: Trazodone HCl (Trazodone Hcl 50 Mg Tablet) 50 mg PO BEDTIME PRN PRN Reason: Insomnia Allergies Allergies Allergy/AdvReac Type Severity Reaction Status Date / Time No Known Allergies Allergy Verified 02/04/21 00:13 Assessment & Plan Assessment & Plan (1) Schizoaffective disorder, depressive type: Status: Acute Code(s): F25.1 - Schizoaffective disorder, depressive type Assessment and Plan: Pt with hx of schizoaffective disorder PLAN 1. Section 8 commitment on 02/27 2. Switch olanzapine to haldol 5mg po qhs due to constipation/dizziness, if refuses oral may give Olanzapine 10mg IM qhs. 3. Aftercare planning. I spent minutes with the patient and/or on the patient floor today, greater than?50% of which was spent counseling/coordinating care. Reason for contiued inpatient stay Substantial Risk for: inability to function
[2021-03-06 18:00] VITALS: BP 126/80; PULSE 110; RESP 18; TEMP 36.5; O2SAT 100
--- NOTE | 2021-03-06 18:44 | PM.EVENT ---
Event Note Date of Service: 03/06/21 Event Note: Reason for calling hospitalist: Constipation Patient 35-year-old female who has chronic constipation she says that at home she is going for BM for 2-3 time a week but since she came here she was not going that often but maybe once a week Last week she was taking all the laxatives but this week she did not took any so the KUB was done last week showed constipation On my examination patient has some abdominal discomfort on the lower abdomen but otherwise soft. Patient passing gases She says that more discomfort when she is try to pass the stool and some hard stool sensation. She had mineral enema yesterday with little bit stool came out. She is more concerned about when she passes the stool has hard feeling and pain. And she says when she goes to the bathroom she passes some liquid stool around but still has a hard sensation. Physical exam: Appearance: Alert.? Oriented X3.?? Eyes: Pupils equal, round and reactive to light.? Sclera nonicteric.? ENT: Pharynx normal.? Moist mucous membranes. cvs: rrr, [id number] , no murmur res: clear to auscultation ,no rhonchii or wheezing abd: no rebound or guarding ,mild discomfort lower abd nonspecific, nd,bs present. reluctant to have rectal exam ext pulses present , no cyanosis ,Gait well balanced well coordinated. neuro: axo3 , nonfocal. Assessment and plan: Chronic constipation KUB stat Advised to increase fiber in the diet at least 6.5 g daily, adequately hydration, she also needs to take her laxatives which she is refusing for a week If KUB come out to be constipation no obstruction we can try mineral enema , also in discussed with the nursing staff at the bedside me she might need disimpaction if luxative or enema does not works. Please call the hospitalist service with the results of KUb this is discussed in detail with the staff Miss carson.
[2021-03-06] MEDS: Lactulose 20 GM/30 ML SOLUTION PO (20:36)
[2021-03-06] MEDS: Docusate Sodium 100 MG CAPSULE PO (20:37)
[2021-03-06] MEDS: HaloperidoL 5 MG TABLET PO (20:37)
[2021-03-06] MEDS: Lidocaine 4 % Cream KIT 1 APPL TOPICAL (21:31)
[2021-03-06] MEDS: Milk of Magnesia 30 ML ORAL.SUSP PO (21:42)
[2021-03-06] MEDS: polyethylene glycoL 3350 17 GM POWD.PACK PO (21:44)
[2021-03-07] MEDS: Acetaminophen 325 MG TABLET 650 MG PO ×2 (03:42→11:12)
[2021-03-07] MEDS: diazePAM 5 MG TABLET PO (04:24)
--- NOTE | 2021-03-07 06:30 | PC.NURSE ---
KUB results were obtained. Pt showed to have moderate constipation, findings similar to previous KUB, Specialist was notified. pt received Tylenol at 203 as well as colace and lactulose to help with bm movement. refused suppository stated I took it the other day and it made me really sick, I want to just try these pt complained of pain in rectal area requested cream to numb area, md notified made new order for lidocaine. pt also given one time of miralax and prn MOM per specialist order, due to KUB results. at 0100 pt awake complaining of rectal pain , had liquid leakage from previous medications, given, declined prn's at that time. pt slept at 0200. at 0300 awake complaining of rectal pain, pt stated she has the urge to have bm but holds it in due to pain, stated to be in excruciating pain pt was given Tylenol, property controller notified, asked for area to be assessed but pt refused stated i can't move right now elevator service technician made new order for one time Valium 5mg. lidocaine 5%m hydrocortisone, and hospitalist consult Valium taken by pt after some education , given at 0429 with some effect. pt stated it helped, laying in bed awake at 0500 at 0550 pt seen to be sleeping. Currently sleeping. Justyn continue to monitor. Hospitalist notified of current status.
[2021-03-07 08:12] VITALS: BP 115/67; PULSE 80; RESP 16; TEMP 36.7; O2SAT 99
--- NOTE | 2021-03-07 10:32 | P.PNPSI_ITS ---
Subjective Subjective Date of Service: 03/07/21 Reason For Visit: Psychosis Subjective Notes: Section 8 Interim History: pt minimal BM with enema/suppository combination of lactulose, miralax and MOM. KUB done last evening on 03/06 continues to show same amount of moderate constipation. Pt reports rectal pain, given lidocaine ointment that she declines at times base on one time use when she reports minimal help- educated on continuous use. Pt in bed, in visible pain and discomfort. Given tylenol. Labs completed- no electrolyte imbalances, CBC w /dif leukopenia/ANC1,500, monocytosis/lymphocytosis. Medication Compliance: Yes Review of Systems Review of Systems CVS: No c/o chest pain, palpitations, no SOB ONLINE PROJECT MANAGER: No c/o dizziness, headache GI: No c/o Nausea, Vomiting, diarrhea, constipation or heartburn Yes all other systems are reviewed and are negative and Unobtainable due to mental status Reports behavioral changes Psychiatric: Reports abnormal sleep pattern, Reports anxiety, Reports behavioral changes, Reports change in appetite, Reports depression, Reports difficulty concentrating, Reports hopelessness, Reports irritability, Reports anhedonia, Reports paranoia and Reports suicidal ideation (denies) Mental Status Exam Mental Status Exam Narrative: Appearance: casually groomed, fair hygiene in NAD Behavior:very suspicious and paranoid psychomotor: no agitation or retardation noted Speech:clear, less delayed response rate, soft, spontaneous Thought process: linear Thought content: wanting to go home, feeling anxious Mood: uncomfortable Affect: suspicious, paranoid AH/VH: denies Insight/judgment:impaired x 2. Memory/cog: alert, oriented x 3. Diagnostics Vital Signs (24Hr): Vital Signs - 24 hr 03/06/21 18:00 03/07/21 08:12 Temperature 97.7 F 98.1 F Pulse Rate 110 H 80 Respiratory Rate 18 16 Blood Pressure 126/80 115/67 Pulse Oximetry 100 99 Body Mass Index 32.5 Labs Results: 03/07/21 10:40 03/07/21 10:40 Labs: Laboratory Results - last 48 hr 03/07/21 03/07/21 03/07/21 10:40 10:40 10:40 WBC 4.0 L RBC 4.63 Hgb 13.1 Hct 38.1 MCV 82.3 MCH 28.3 MCHC 34.4 RDW 13.2 Plt Count 272 MPV 8.8 L Immature Gran % (Auto) 0.0 Neut % (Auto) 37.8 L Lymph % (Auto) 44.6 H [place] % (Auto) 14.1 H Eos % (Auto) 2.5 Baso % (Auto) 1.0 Lymph # (Auto) 1.8 [place] # (Auto) 0.6 Eos # (Auto) 0.1 Baso # (Auto) 0.0 Abs Immat Gran (auto) 0.00 Absolute Neuts (auto) 1.5 L Absolute Nucleated RBC 0.000 Nucleated RBC % (auto) 0.0 Sodium 141 Potassium 4.4 Chloride 106 Carbon Dioxide 27 Anion Gap 12 BUN 7 L Creatinine 0.72 Estim Creat Clear Calc 102.3 Estimated GFR > 60 Random Glucose 106 Estimat Average Glucose 91 Hemoglobin A1c % 4.8 Calcium 9.4 Total Bilirubin 0.7 AST 13 ALT 14 Alkaline Phosphatase 41 Total Protein 6.6 Albumin 4.2 Triglycerides 71 Cholesterol 124 LDL Cholesterol, Calc 72 HDL Cholesterol 38 Imaging Radiology Impressions: ITS Impressions KUB X-Ray 02/28/21 15:30 IMPRESSION: Large amount of stool throughout the colon suggestive of constipation. No evidence of obstruction. KUB X-Ray 03/06/21 19:14 IMPRESSION: Moderate constipation, similar in severity to the prior exam. Medications Medications Current Medications Acetaminophen (Acetaminophen 325 Mg Tablet) 650 mg PO Q6H PRN PRN Reason: Headache/Pain Mild Scale (1-3) Last Admin: 03/07/21 11:12 Dose: 650 mg Documented by: Al Hydroxide/Mg Hydroxide (Magnesium Hydrox/Alum Hydrox 30 Ml Oral.Susp) 30 ml PO Q6H PRN PRN Reason: Heartburn/Nausea Benztropine Mesylate (Benztropine Mesylate 1 Mg Tablet) 1 mg PO BID PRN PRN Reason: EPS Docusate Sodium (Docusate Sodium 100 Mg Capsule) 100 mg PO BID [facility] Last Admin: 03/07/21 11:16 Dose: Not Given Documented by: Glycerin (Glycerin Adult Supp.Rect) 1 supp IN DAILY PRN PRN Reason: Constipation Last Admin: 03/05/21 09:25 Dose: 1 supp Documented by: Haloperidol (Haloperidol 5 Mg Tablet) 5 mg PO BEDTIME [facility] Haloperidol Lactate (Haloperidol Lactate 5 Mg/Ml Vial) 5 mg IM BEDTIME PRN PRN Reason: if refuses oral per court Hydrocortisone (Hydrocortisone 1 % Cream 28.35 Gm Tube) 1 appl TOPICAL TID [facility]; Protocol Last Admin: 03/07/21 11:16 Dose: Not Given Documented by: Hydroxyzine HCl (Hydroxyzine Hcl 25 Mg Tablet) 25 mg PO Q6H PRN PRN Reason: Anxiety Lactulose (Lactulose 20 Gm/30 Ml Solution) 20 gm PO TID [facility] Last Admin: 03/07/21 11:16 Dose: Not Given Documented by: Lidocaine (Lidocaine 5 % Ointment 35 Gm) 1 appl TOPICAL Q6H [facility]; Protocol Last Admin: 03/07/21 11:12 Dose: 1 appl Documented by: Lidocaine HCl (Lidocaine 4 % Cream Kit) 1 appl TOPICAL ONCE PRN; Protocol PRN Reason: pain in rectum Last Admin: 03/06/21 21:31 Dose: 1 appl Documented by: Lidocaine HCl (Lidocaine 4 % Cream Kit) 1 appl TOPICAL DAILY PRN; Protocol PRN Reason: RECTAL PAIN Lorazepam (Lorazepam 1 Mg Tablet) 2 mg PO BEDTIME [facility] Magnesium Hydroxide (Milk Of Magnesia 30 Ml Oral.Susp) 30 ml PO DAILY PRN PRN Reason: Constipation Last Admin: 03/06/21 21:42 Dose: 30 ml Documented by: Mineral Oil (Mineral Oil Enema 133 Ml Enema) 133 ml IN ONCE PRN PRN Reason: constipation Last Admin: 03/05/21 21:15 Dose: 133 ml Documented by: Polyethylene Glycol (Polyethylene Glycol 3350 17 Gm Powd.Pack) 17 gm PO BIDPC [facility] Last Admin: 03/07/21 11:12 Dose: 17 gm Documented by: Trazodone HCl (Trazodone Hcl 50 Mg Tablet) 50 mg PO BEDTIME PRN PRN Reason: Insomnia Allergies Allergies Allergy/AdvReac Type Severity Reaction Status Date / Time No Known Allergies Allergy Verified 02/04/21 00:13 Assessment & Plan Assessment & Plan (1) Schizoaffective disorder, depressive type: Status: Acute Code(s): F25.1 - Schizoaffective disorder, depressive type Assessment and Plan: Pt with hx of schizoaffective disorder PLAN 1. Section 8 commitment on 02/27 2. Continue Haldol 5mg po qhs- back up IM Haldol 5mg IM, ativan 2mg po qhs for sleep and anxiety. 3. Constipation- seen by hospitalist on 03/06- minimal effect with miralax, enema, MOM, lactulose, KUB done on 03/06- constipation no change from 02/28, no obstraction, labs completed on 03/07- no electrolyte imbalances 4. DIET for constipation- encourage prune juice, limit ensure as it may worsened constipation, diet high in fiber and liquid. 5. GI consult pending- limited efficacy of constipation 3. Aftercare planning. I spent minutes with the patient and/or on the patient floor today, greater than?50% of which was spent counseling/coordinating care. Reason for contiued inpatient stay Substantial Risk for: inability to function
[2021-03-07 10:43] LABS: MANUAL DIFF FLAG NO
[2021-03-07 10:46] LABS: Eosinophils Absolute Auto 0.1 X10*3/uL (0.0-0.4); Eosinophils Percent Auto 2.5 % (0-4); Hematocrit 38.1 % (37.0-47.0); Hemoglobin 13.1 g/dl (12.0-16.0); Lymphocytes Absolute Auto 1.8 X10*3/uL (1.2-4.9); Lymphocytes Percent Auto 44.6 % (20-40); Mean Corpuscular HGB Conc 34.4 g/dl (31.0-35.0); Mean Corpuscular Hemoglobin 28.3 pg (27.0-33.0); Mean Corpuscular Volume 82.3 fL (80.0-98.0); Mean Platelet Volume 8.8 fL (9.4-12.3); Monocytes Absolute Auto 0.6 X10*3/uL (0.1-1.2); Monocytes Percent Auto 14.1 % (2-11); Neutrophils Absolute Auto 1.5 x10*3/uL (2.0-8.3); Neutrophils Percent Auto 37.8 % (45-73); Platelet Count 272 X10*3/uL (160-400); Red Blood Count 4.63 X10*6/uL (4.20-5.50); Red Cell Distribution Width 13.2 % (11.0-16.0)
[2021-03-07 11:06] LABS: Estimated Average Glucose 91 mg/dL; Hemoglobin A1c % 4.8 %
[2021-03-07 11:07] LABS: Alanine Aminotransferase 14 U/L (0-31); Albumin Level 4.2 g/dL (3.5-5.0); Alkaline Phosphatase 41 U/L (39-117); Anion Gap 12 (12-20); Aspartate Amino Transferase 13 U/L (5-31); Bilirubin Total 0.7 mg/dL (0.0-1.0); Blood Urea Nitrogen 7 mg/dL (9-16); Calcium 9.4 mg/dL (8.4-10.2); Carbon Dioxide 27 mmol/L (22-29); Chloride 106 mmol/L (96-108); Cholesterol 124 mg/dL; Creatinine Clr Calc Pharmacy 102.3; Estimated Glomerular Filt Rate > 60; Glucose Random 106 mg/dL (60-115); HDL Cholesterol 38 mg/dL; LDL Cholesterol Calculated 72 mg/dl; Potassium 4.4 mmol/L (3.3-5.1); Sodium 141 mmol/L (135-145); Total Protein 6.6 g/dL (6.5-8.0); Triglycerides 71 mg/dL
[2021-03-07] MEDS: Lidocaine 5 % Ointment 35 GM 1 APPL TOPICAL ×2 (11:12→15:55)
[2021-03-07] MEDS: polyethylene glycoL 3350 17 GM POWD.PACK PO ×2 (11:12→17:40)
[2021-03-07] MEDS: Lactulose 20 GM/30 ML SOLUTION PO (15:51)
[2021-03-07 18:00] VITALS: RESP 14
[2021-03-07 18:29] LABS: TSH reflex Free T4 1.58 uIU/mL (0.32-4.0)
[2021-03-07 18:44] LABS: Folate 15.5 ng/mL (> or = 4.0); Vitamin B12 650 pg/mL (200-900)
[2021-03-07] MEDS: HaloperidoL 5 MG TABLET PO (21:01)
[2021-03-07] MEDS: Docusate Sodium 100 MG CAPSULE PO (21:01)
[2021-03-07] MEDS: LORazepam 1 MG TABLET 2 MG PO (21:01)
[2021-03-07] MEDS: Lidocaine 4 % Cream KIT 1 APPL TOPICAL (21:04)
--- NOTE | 2021-03-07 21:22 | PC.NURSE ---
accepted 1 mg of 2 mg dose of hs ativan
[2021-03-08] MEDS: Lidocaine 5 % Ointment 35 GM 1 APPL TOPICAL (01:07)
[2021-03-08] MEDS: Acetaminophen 325 MG TABLET 650 MG PO ×3 (01:47→20:46)
--- NOTE | 2021-03-08 13:06 | HO.PSYCHPN ---
Subjective Subjective Date of Service: 03/08/21 Reason For Visit: Psychosis Subjective Notes: Conditional Voluntary Interim History: The nursing staff reported that she had a PRN yesterday in the afternoon of Ativan due to anxiety. She feels dizzy with Valsalva manouvres and she has sporadic abdominal pain. On interview, she complained of her abdominal discomfort. No new symptoms. Mental Status Exam Mental Status Exam Patient Appearance: Appropriate Patient Orientation: Person and Situation Level of Consciousness: Awake Patient Behavior: Guarded and Cooperative Mood Description: Constricted Affect Description: Constricted Patient Cognition Impaired: No Ability to Follow Directions: Good Hallucinations: None Delusions: Not Present Thought Process: Distracted and Slowed Thinking Thought Content: positive for Perseveration and positive for Thought Blocking Judgement: Fair Diagnostics Vital Signs (24Hr): Vital Signs - 24 hr 03/07/21 18:00 Respiratory Rate 14 Body Mass Index 32.5 Labs Results: 03/07/21 10:40 03/07/21 10:40 Labs: Laboratory Results - last 48 hr 03/07/21 03/07/21 03/07/21 10:40 10:40 10:40 WBC 4.0 L RBC 4.63 Hgb 13.1 Hct 38.1 MCV 82.3 MCH 28.3 MCHC 34.4 RDW 13.2 Plt Count 272 MPV 8.8 L Immature Gran % (Auto) 0.0 Neut % (Auto) 37.8 L Lymph % (Auto) 44.6 H [place] % (Auto) 14.1 H Eos % (Auto) 2.5 Baso % (Auto) 1.0 Lymph # (Auto) 1.8 [place] # (Auto) 0.6 Eos # (Auto) 0.1 Baso # (Auto) 0.0 Abs Immat Gran (auto) 0.00 Absolute Neuts (auto) 1.5 L Absolute Nucleated RBC 0.000 Nucleated RBC % (auto) 0.0 Sodium 141 Potassium 4.4 Chloride 106 Carbon Dioxide 27 Anion Gap 12 BUN 7 L Creatinine 0.72 Estim Creat Clear Calc 102.3 Estimated GFR > 60 Random Glucose 106 Estimat Average Glucose 91 Hemoglobin A1c % 4.8 Calcium 9.4 Total Bilirubin 0.7 AST 13 ALT 14 Alkaline Phosphatase 41 Total Protein 6.6 Albumin 4.2 Triglycerides 71 Cholesterol 124 LDL Cholesterol, Calc 72 HDL Cholesterol 38 Vitamin B12 Folate TSH 03/07/21 03/07/21 17:46 17:46 WBC RBC Hgb Hct MCV MCH MCHC RDW Plt Count MPV Immature Gran % (Auto) Neut % (Auto) Lymph % (Auto) [place] % (Auto) Eos % (Auto) Baso % (Auto) Lymph # (Auto) [place] # (Auto) Eos # (Auto) Baso # (Auto) Abs Immat Gran (auto) Absolute Neuts (auto) Absolute Nucleated RBC Nucleated RBC % (auto) Sodium Potassium Chloride Carbon Dioxide Anion Gap BUN Creatinine Estim Creat Clear Calc Estimated GFR Random Glucose Estimat Average Glucose Hemoglobin A1c % Calcium Total Bilirubin AST ALT Alkaline Phosphatase Total Protein Albumin Triglycerides Cholesterol LDL Cholesterol, Calc HDL Cholesterol Vitamin B12 650 Folate 15.5 TSH 1.58 Imaging Radiology Impressions: ITS Impressions KUB X-Ray 02/28/21 15:30 IMPRESSION: Large amount of stool throughout the colon suggestive of constipation. No evidence of obstruction. KUB X-Ray 03/06/21 19:14 IMPRESSION: Moderate constipation, similar in severity to the prior exam. Medications Medications Current Medications Acetaminophen (Acetaminophen 325 Mg Tablet) 650 mg PO Q6H PRN PRN Reason: Headache/Pain Mild Scale (1-3) Last Admin: 03/08/21 12:28 Dose: 650 mg Documented by: Al Hydroxide/Mg Hydroxide (Magnesium Hydrox/Alum Hydrox 30 Ml Oral.Susp) 30 ml PO Q6H PRN PRN Reason: Heartburn/Nausea Benztropine Mesylate (Benztropine Mesylate 1 Mg Tablet) 1 mg PO BID PRN PRN Reason: EPS Docusate Sodium (Docusate Sodium 100 Mg Capsule) 100 mg PO BID [facility] Last Admin: 03/08/21 11:03 Dose: Not Given Documented by: Glycerin (Glycerin Adult Supp.Rect) 1 supp [place] DAILY PRN PRN Reason: Constipation Last Admin: 03/05/21 09:25 Dose: 1 supp Documented by: Haloperidol (Haloperidol 5 Mg Tablet) 5 mg PO BEDTIME [facility] Last Admin: 03/07/21 21:01 Dose: 5 mg Documented by: Haloperidol Lactate (Haloperidol Lactate 5 Mg/Ml Vial) 5 mg IM BEDTIME PRN PRN Reason: if refuses oral per court Hydrocortisone (Hydrocortisone 1 % Cream 28.35 Gm Tube) 1 appl TOPICAL TID [facility]LEX; Protocol Last Admin: 03/08/21 11:03 Dose: Not Given Documented by: Hydroxyzine HCl (Hydroxyzine Hcl 25 Mg Tablet) 25 mg PO Q6H PRN PRN Reason: Anxiety Lactulose (Lactulose 20 Gm/30 Ml Solution) 20 gm PO TID [facility] Last Admin: 03/08/21 11:03 Dose: Not Given Documented by: Lidocaine (Lidocaine 5 % Ointment 35 Gm) 1 appl TOPICAL Q6H [facility]LEX; Protocol Last Admin: 03/08/21 11:29 Dose: Not Given Documented by: Lidocaine HCl (Lidocaine 4 % Cream Kit) 1 appl TOPICAL ONCE PRN; Protocol PRN Reason: pain in rectum Last Admin: 03/07/21 21:04 Dose: 1 appl Documented by: Lidocaine HCl (Lidocaine 4 % Cream Kit) 1 appl TOPICAL DAILY PRN; Protocol PRN Reason: RECTAL PAIN Lorazepam (Lorazepam 1 Mg Tablet) 2 mg PO BEDTIME [facility] Last Admin: 03/07/21 21:01 Dose: 1 mg Documented by: Magnesium Hydroxide (Milk Of Magnesia 30 Ml Oral.Susp) 30 ml PO DAILY PRN PRN Reason: Constipation Last Admin: 03/06/21 21:42 Dose: 30 ml Documented by: Mineral Oil (Mineral Oil Enema 133 Ml Enema) 133 ml [place] ONCE PRN PRN Reason: constipation Last Admin: 03/05/21 21:15 Dose: 133 ml Documented by: Polyethylene Glycol (Polyethylene Glycol 3350 17 Gm Powd.Pack) 17 gm PO BIDPC [facility] Last Admin: 03/08/21 11:02 Dose: Not Given Documented by: Trazodone HCl (Trazodone Hcl 50 Mg Tablet) 50 mg PO BEDTIME PRN PRN Reason: Insomnia Allergies Allergies Allergy/AdvReac Type Severity Reaction Status Date / Time No Known Allergies Allergy Verified 02/04/21 00:13 Assessment & Plan Assessment & Plan (1) Schizoaffective disorder, depressive type: Status: Acute Code(s): F25.1 - Schizoaffective disorder, depressive type Assessment and Plan: Pt with hx of schizoaffective disorder PLAN 1. Section 8 commitment on 02/27 2. Continue Haldol 5mg po qhs- back up IM Haldol 5mg IM, ativan 2mg po qhs for sleep and anxiety. 3. Constipation- seen by hospitalist on 03/06- minimal effect with miralax, enema, MOM, lactulose, KUB done on 03/06- constipation no change from 02/28, no obstraction, labs completed on 03/07- no electrolyte imbalances 4. DIET for constipation- encourage prune juice, limit ensure as it may worsened constipation, diet high in fiber and liquid. 5. GI consult pending- limited efficacy of constipation 6. Currently with abdominal pain due to several constipation treatment. I spent minutes with the patient and/or on the patient floor today, greater than?50% of which was spent counseling/coordinating care. Reason for contiued inpatient stay Substantial Risk for: inability to function, rapid decompensation and med/psych decompensation
[2021-03-08] MEDS: Lactulose 20 GM/30 ML SOLUTION PO (14:41)
[2021-03-08 18:00] VITALS: BP 113/65; PULSE 82; TEMP 36.5; O2SAT 98
[2021-03-08] MEDS: polyethylene glycoL 3350 17 GM POWD.PACK PO (18:17)
[2021-03-08] MEDS: Docusate Sodium 100 MG CAPSULE PO (20:46)
[2021-03-08] MEDS: HaloperidoL 5 MG TABLET PO (20:46)
[2021-03-08] MEDS: LORazepam 1 MG TABLET 2 MG PO (20:47)
[2021-03-09] MEDS: Lidocaine 5 % Ointment 35 GM 1 APPL TOPICAL ×3 (00:32→22:19)
[2021-03-09] MEDS: Glycerin Adult SUPP.RECT 1 SUPP PR ×2 (00:33→22:56)
[2021-03-09 06:00] VITALS: BP 112/79; PULSE 128; RESP 16; TEMP 36.3; O2SAT 98
--- NOTE | 2021-03-09 06:13 | PC.NURSE ---
patient accepted suppository. reports + BM
--- NOTE | 2021-03-09 06:28 | PM.GICN ---
History of Present Illness Data of Consult Service Date: 03/09/21 Requesting physician: Marjorie Bauer Primary Care Provider: [facility] HPI Reason for consult: constipation 35 yr old f w/ h/o ABRAN, depression who I am seeing for assessment for constipation She was admitted with psychotic thoughts and suicidal ideation with claims of being abused by an entity. FOr the last week whilst on anti psychotics she had worsening constipation with no bowel motions for several days. She had been seen by hospitalist and placed on laxative regimen few days ago with scheduled miralax and colace and prn MOM, lactulose, glycernin supp, minerla oil enema. She is now passing small amounts of stool with some relief, She has had mid abominal cramoing pains 10/10 severity with radiation to rectum and lower back, also straining at stool with sweats and dizziness at times. Initially she said she thought she had no issues with constipation prior to admission but then she said she had noted she was not going as regular just before admission but things now worse in hospital. denies nausea, vomtiing, no rectal bleeding no prior colonoscopy, not on narcotics, never tried laxatives before admission, no FH of CRC. Labs with nml HGB and TSH, nml lytes. KUB with moderate constipation Review of Systems Review of Systems: CVS: No c/o chest pain, palpitations, no SOB [employer]RIC REH[facility]ILITATION: No c/o dizziness, headache GI: No c/o Nausea, Vomiting, diarrhea, constipation or heartburn Yes all other systems are reviewed and are negative ENT: Reports dizziness (when pushing stool) Neurologic: Reports behavioral changes and Reports dizziness (when pushing stool) Psychiatric: Psychiatric: Reports abnormal sleep pattern, Reports anxiety, Reports behavioral changes, Reports change in appetite, Reports depression, Reports difficulty concentrating, Reports hopelessness, Reports irritability, Reports anhedonia, Reports paranoia and Reports suicidal ideation (denies) [facility] Past Medical History Medical History (Updated 03/09/21 @ 14:18 by Rose Boudreaux MD) Vaginal irritation Social History Social History Household Members Other:: I don't want to answer that right now . Patient Tobacco Use Status: Never used Tobacco Smoked in Last 30 Days: No e-Cigarette/Vaping Use: Never Used Use of substances other than those prescribed or required for medical reasons: Unknown Substance Use Type: Caffiene Substance Use Type Other:: I'm not sure . Last Used Substance: Unknown Last Used Substance Other:: I'm not sure . Currently Displaying Signs/Symptoms of Drug Intoxication Withdrawal: No Do you feel safe in your current relationship?: Yes Spiritual Healthcare Practices: My kathryn is in God, Jonathan Barney . Cultural Healthcare Practices: Not sure . Advance Directives: No Advance Directives Information Provided: No Advance Directives on File: No Do you have thoughts of harming others: None Do you have a plan to hurt others: No Plan Recently lost weight without trying: Unsure Patient : No : No service: No Sexual orientation: Decline to Answer Meds Allergies Allergy/AdvReac Type Severity Reaction Status Date / Time No Known Allergies Allergy Verified 02/04/21 00:13 Active Medications: Current Medications Acetaminophen (Acetaminophen 325 Mg Tablet) 650 mg PO Q6H PRN PRN Reason: Headache/Pain Mild Scale (1-3) Last Admin: 03/08/21 20:46 Dose: 650 mg Documented by: Al Hydroxide/Mg Hydroxide (Magnesium Hydrox/Alum Hydrox 30 Ml Oral.Susp) 30 ml PO Q6H PRN PRN Reason: Heartburn/Nausea Benztropine Mesylate (Benztropine Mesylate 1 Mg Tablet) 1 mg PO BID PRN PRN Reason: EPS Docusate Sodium (Docusate Sodium 100 Mg Capsule) 100 mg PO BID ALEX Last Admin: 03/08/21 20:46 Dose: 100 mg Documented by: Glycerin (Glycerin Adult Supp.Rect) 1 supp [place] DAILY PRN PRN Reason: Constipation Last Admin: 03/09/21 00:33 Dose: 1 supp Documented by: Haloperidol (Haloperidol 5 Mg Tablet) 5 mg PO BEDTIME ALEX Last Admin: 03/08/21 20:46 Dose: 5 mg Documented by: Haloperidol Lactate (Haloperidol Lactate 5 Mg/Ml Vial) 5 mg IM BEDTIME PRN PRN Reason: if refuses oral per court Hydrocortisone (Hydrocortisone 1 % Cream 28.35 Gm Tube) 1 appl TOPICAL TID ALEX; Protocol Last Admin: 03/08/21 20:50 Dose: Not Given Documented by: Hydroxyzine HCl (Hydroxyzine Hcl 25 Mg Tablet) 25 mg PO Q6H PRN PRN Reason: Anxiety Lactulose (Lactulose 20 Gm/30 Ml Solution) 20 gm PO TID [facility] Last Admin: 03/08/21 20:50 Dose: Not Given Documented by: Lidocaine (Lidocaine 5 % Ointment 35 Gm) 1 appl TOPICAL Q6H ALEX; Protocol Last Admin: 03/09/21 06:13 Dose: Not Given Documented by: Lidocaine HCl (Lidocaine 4 % Cream Kit) 1 appl TOPICAL ONCE PRN; Protocol PRN Reason: pain in rectum Last Admin: 03/07/21 21:04 Dose: 1 appl Documented by: Lidocaine HCl (Lidocaine 4 % Cream Kit) 1 appl TOPICAL DAILY PRN; Protocol PRN Reason: RECTAL PAIN Lorazepam (Lorazepam 1 Mg Tablet) 2 mg PO BEDTIME [facility] Last Admin: 03/08/21 20:47 Dose: 2 mg Documented by: Magnesium Hydroxide (Milk Of Magnesia 30 Ml Oral.Susp) 30 ml PO DAILY PRN PRN Reason: Constipation Last Admin: 03/06/21 21:42 Dose: 30 ml Documented by: Mineral Oil (Mineral Oil Enema 133 Ml Enema) 133 ml [place] ONCE PRN PRN Reason: constipation Last Admin: 03/05/21 21:15 Dose: 133 ml Documented by: Polyethylene Glycol (Polyethylene Glycol 3350 17 Gm Powd.Pack) 17 gm PO BIDPC [facility] Last Admin: 03/08/21 18:17 Dose: 17 gm Documented by: Trazodone HCl (Trazodone Hcl 50 Mg Tablet) 50 mg PO BEDTIME PRN PRN Reason: Insomnia Home Medications Medication Instructions Recorded Confirmed Last Taken Type Seroquel 1 tab PO TID 02/07/21 02/07/21 Unknown History melatonin 1 tab PO BEDTIME 02/07/21 02/07/21 Unknown History Physical Exam Vital Signs: Vital Signs: Last Vital Signs Temp 97.7 F 03/08/21 18:00 Pulse 82 03/08/21 18:00 Resp 14 03/07/21 18:00 BP 113/65 03/08/21 18:00 Pulse Ox 98 03/08/21 18:00 Body Mass Index 32.5 EXAM: GENERAL: The patient is well developed and nontoxic. VITAL SIGNS:see workflow HEENT: Nonicteric sclerae, PERRLA, EOMI. Oropharynx clear. Moist mucous membranes. Conjunctivae appear well perfused. No thyroid mass. CHEST: Chest wall is nontender. HEART: Regular rate and rhythm without murmurs. LUNGS: Clear to auscultation bilaterally. ABDOMEN: Soft, positive bowel sounds, nontender, no organomegaly.no flank tenderness SKIN: No rash, no excessive bruising, petechiae, or purpura. NEUROLOGIC: Cranial nerves II-XII intact without motor/sensory deficit. Psych- withdrawn Results Labs CBC & Chem 7: 03/07/21 10:40 03/07/21 10:40 Assessment and Plan (1) Constipation by delayed colonic transit: Status: Acute 1/ Altered bowel habit and constipation likely exacerbated by anti psychotic medication, may have unerlying colonic inertia, do need ti exclude other leisons, colitis, colonic mass, pelvic floor dyssnergy. TSH was nml PLAN: 1/ Cont with scheduled miralax BID and colace, can add dulcolax as well for stimulant effect (I will order) 2/ Colonoscopy this week probably Wed for further assessment, will need to stay on clears day before, she did agree with this 3/ Good fluid intake, at least 3-4 glasses of water daily 4/ can add glycerin supp or lactulose if no progress Procedures Date of Service Date of Service: 03/09/21
[2021-03-09] MEDS: Lactulose 20 GM/30 ML SOLUTION PO ×3 (08:38→22:18)
[2021-03-09] MEDS: Docusate Sodium 100 MG CAPSULE PO ×2 (08:38→22:18)
[2021-03-09] MEDS: Hydrocortisone 1 % Cream 28.35 GM TUBE 1 APPL TOPICAL ×2 (08:42→16:03)
[2021-03-09] MEDS: Acetaminophen 325 MG TABLET 650 MG PO ×2 (08:42→16:16)
--- NOTE | 2021-03-09 15:03 | P.PNPSI_ITS ---
Subjective Subjective Date of Service: 03/09/21 Reason For Visit: Psychosis Interim History: The nursing staff reported that she had a bowel movement last night, still very uncomfortable. She was seen as isolative and withdrawn, preoccupied with germs. Medical staff reported that she is going to have a colonoscopy for Wednesday. On interview, she reported abdominal pain, no new symptoms. Mental Status Exam Mental Status Exam Patient Appearance: Well Grooomed Patient Orientation: Person and Situation Level of Consciousness: Awake Patient Behavior: Cooperative Mood Description: Depressed Affect Description: Constricted Ability to Follow Directions: Good Speech Pattern: Clear Hallucinations: None Delusions: Paranoid Ideation Thought Process: Evasive Thought Content: positive for Poverty of Content and positive for Preoccupation Judgement: Fair Diagnostics Vital Signs (24Hr): Vital Signs - 24 hr 03/08/21 18:00 03/09/21 06:00 Temperature 97.7 F 97.4 F Pulse Rate 82 128 H Respiratory Rate 16 Blood Pressure 113/65 112/79 Pulse Oximetry 98 98 Body Mass Index 32.5 Labs Results: 03/07/21 10:40 03/07/21 10:40 Labs: Laboratory Results - last 48 hr 03/07/21 03/07/21 17:46 17:46 Vitamin B12 650 Folate 15.5 TSH 1.58 Imaging Radiology Impressions: ITS Impressions KUB X-Ray 02/28/21 15:30 IMPRESSION: Large amount of stool throughout the colon suggestive of constipation. No evidence of obstruction. KUB X-Ray 03/06/21 19:14 IMPRESSION: Moderate constipation, similar in severity to the prior exam. Medications Medications Current Medications Acetaminophen (Acetaminophen 325 Mg Tablet) 650 mg PO Q6H PRN PRN Reason: Headache/Pain Mild Scale (1-3) Last Admin: 03/09/21 08:42 Dose: 650 mg Documented by: Al Hydroxide/Mg Hydroxide (Magnesium Hydrox/Alum Hydrox 30 Ml Oral.Susp) 30 ml PO Q6H PRN PRN Reason: Heartburn/Nausea Benztropine Mesylate (Benztropine Mesylate 1 Mg Tablet) 1 mg PO BID PRN PRN Reason: EPS Bisacodyl (Bisacodyl 10 Mg Supp.Rect) 10 mg [place] DAILY ALEX Docusate Sodium (Docusate Sodium 100 Mg Capsule) 100 mg PO BID ALEX Last Admin: 03/09/21 08:38 Dose: 100 mg Documented by: Glycerin (Glycerin Adult Supp.Rect) 1 supp [place] DAILY PRN PRN Reason: Constipation Last Admin: 03/09/21 00:33 Dose: 1 supp Documented by: Haloperidol (Haloperidol 5 Mg Tablet) 5 mg PO BEDTIME [facility] Last Admin: 03/08/21 20:46 Dose: 5 mg Documented by: Haloperidol Lactate (Haloperidol Lactate 5 Mg/Ml Vial) 5 mg IM BEDTIME PRN PRN Reason: if refuses oral per court Hydrocortisone (Hydrocortisone 1 % Cream 28.35 Gm Tube) 1 appl TOPICAL TID [facility]; Protocol Last Admin: 03/09/21 08:42 Dose: 1 appl Documented by: Hydroxyzine HCl (Hydroxyzine Hcl 25 Mg Tablet) 25 mg PO Q6H PRN PRN Reason: Anxiety Lactulose (Lactulose 20 Gm/30 Ml Solution) 20 gm PO TID [facility] Last Admin: 03/09/21 08:38 Dose: 20 gm Documented by: Lidocaine (Lidocaine 5 % Ointment 35 Gm) 1 appl TOPICAL Q6H ALEX; Protocol Last Admin: 03/09/21 11:55 Dose: Not Given Documented by: Lidocaine HCl (Lidocaine 4 % Cream Kit) 1 appl TOPICAL ONCE PRN; Protocol PRN Reason: pain in rectum Last Admin: 03/07/21 21:04 Dose: 1 appl Documented by: Lidocaine HCl (Lidocaine 4 % Cream Kit) 1 appl TOPICAL DAILY PRN; Protocol PRN Reason: RECTAL PAIN Lorazepam (Lorazepam 1 Mg Tablet) 2 mg PO BEDTIME [facility] Last Admin: 03/08/21 20:47 Dose: 2 mg Documented by: Magnesium Hydroxide (Milk Of Magnesia 30 Ml Oral.Susp) 30 ml PO DAILY PRN PRN Reason: Constipation Last Admin: 03/06/21 21:42 Dose: 30 ml Documented by: Mineral Oil (Mineral Oil Enema 133 Ml Enema) 133 ml [place] ONCE PRN PRN Reason: constipation Last Admin: 03/05/21 21:15 Dose: 133 ml Documented by: Polyethylene Glycol (Polyethylene Glycol 3350 17 Gm Powd.Pack) 17 gm PO BIDPC [facility] Last Admin: 03/09/21 11:01 Dose: Not Given Documented by: Trazodone HCl (Trazodone Hcl 50 Mg Tablet) 50 mg PO BEDTIME PRN PRN Reason: Insomnia Allergies Allergies Allergy/AdvReac Type Severity Reaction Status Date / Time No Known Allergies Allergy Verified 02/04/21 00:13 Assessment & Plan Assessment & Plan (1) Constipation by delayed colonic transit: Status: Acute Code(s): K59.01 - Slow transit constipation Assessment and Plan: 1/ Altered bowel habit and constipation likely exacerbated by anti psychotic medication, may have unerlying colonic inertia, do need ti exclude other leisons, colitis, colonic mass, pelvic floor dyssnergy. TSH was nml PLAN: 1/ Cont with scheduled miralax BID and colace, can add dulcolax as well for s timulant effect (I will order) 2/ Colonoscopy this week probably Wed for further assessment, will need to stay on clears day before, she did agree with this 3/ Good fluid intake, at least 3-4 glasses of water daily 4/ can add glycerin supp or lactulose if no progress I spent minutes with the patient and/or on the patient floor today, greater than?50% of which was spent counseling/coordinating care. Reason for contiued inpatient stay Substantial Risk for: inability to function, rapid decompensation and med/psych decompensation
--- NOTE | 2021-03-09 16:21 | PC.NURSE ---
Patient refused Dulcolax suppository at this time, states she just went last night, it hurt, and would take it tomorrow. Dr. Awad made aware.
[2021-03-09] MEDS: polyethylene glycoL 3350 17 GM POWD.PACK PO (17:50)
[2021-03-09] MEDS: HaloperidoL 5 MG TABLET PO (22:18)
[2021-03-09] MEDS: LORazepam 1 MG TABLET 2 MG PO (22:18)
[2021-03-09] MEDS: Mineral Oil/Petrolatum,White 106 GM Tube 1 APPL TOPICAL (22:26)
[2021-03-09 22:28] VITALS: BP 132/86; PULSE 95; TEMP 36.7; O2SAT 98
--- NOTE | 2021-03-10 06:34 | PC.NURSE ---
good results with glycerine supps. given last evening @ [id number]
[2021-03-10] MEDS: polyethylene glycoL 3350 17 GM POWD.PACK PO (09:04)
[2021-03-10] MEDS: Docusate Sodium 100 MG CAPSULE PO ×2 (09:04→22:42)
[2021-03-10] MEDS: Lactulose 20 GM/30 ML SOLUTION PO ×2 (09:04→15:08)
[2021-03-10] MEDS: Lidocaine 5 % Ointment 35 GM 1 APPL TOPICAL ×2 (09:11→15:08)
[2021-03-10] MEDS: Hydrocortisone 1 % Cream 28.35 GM TUBE 1 APPL TOPICAL ×2 (09:12→15:08)
[2021-03-10 09:15] VITALS: BP 130/76; PULSE 113; RESP 16; TEMP 36.7; O2SAT 100
--- NOTE | 2021-03-10 09:15 | PC.NURSE ---
PT declined dulcolax suppository, states she wants to take it later. Provider aware.
--- NOTE | 2021-03-10 11:52 | HO.PSYCHPN ---
Subjective Subjective Date of Service: 03/10/21 Reason For Visit: Psychosis Subjective Notes: Section 8 Interim History: Pt reports feeling much less abdominal pain and less rectal pain. She reports feeling relief with BM. Pt appears less anxious. She reports feeling depressed about being here in hospital against her will. However, reports she feels less anxious and states will try to go to groups, now that abdominal pain has decreased. She denies SI/HI. She reports she was able to sleep last night. Medication Compliance: Yes Side effects from medications: No Attending Groups: Intermittent Review of Systems Review of Systems CVS: No c/o chest pain, palpitations, no SOB CONTINUOUS PROCESS [employer]: No c/o dizziness, headache GI: No c/o Nausea, Vomiting, diarrhea, constipation or heartburn Yes all other systems are reviewed and are negative and Unobtainable due to mental status Reports dizziness (when pushing stool) Reports behavioral changes and Reports dizziness (when pushing stool) Psychiatric: Reports abnormal sleep pattern, Reports anxiety, Reports behavioral changes, Reports change in appetite, Reports depression, Reports difficulty concentrating, Reports hopelessness, Reports irritability, Reports anhedonia, Reports paranoia and Reports suicidal ideation (denies) Mental Status Exam Mental Status Exam Narrative: Appearance: casually groomed, fair hygiene in NAD Behavior:less guarded. psychomotor: no agitation or retardation noted Speech:clear, less delayed response rate, soft, spontaneous Thought process: linear Thought content: wanting to go home, feeling anxious Mood: depressed Affect: less suspicious AH/VH: denies Insight/judgment:impaired x 2. Memory/cog: alert, oriented x 3. Diagnostics Vital Signs (24Hr): Vital Signs - 24 hr 03/09/21 22:28 03/10/21 09:15 Temperature 98.1 F 98.1 F Pulse Rate 95 113 H Respiratory Rate 16 Blood Pressure 132/86 130/76 Pulse Oximetry 98 100 Body Mass Index 32.5 Labs Results: 03/07/21 10:40 03/07/21 10:40 Imaging Radiology Impressions: ITS Impressions KUB X-Ray 02/28/21 15:30 IMPRESSION: Large amount of stool throughout the colon suggestive of constipation. No evidence of obstruction. KUB X-Ray 03/06/21 19:14 IMPRESSION: Moderate constipation, similar in severity to the prior exam. Medications Medications Current Medications Acetaminophen (Acetaminophen 325 Mg Tablet) 650 mg PO Q6H PRN PRN Reason: Headache/Pain Mild Scale (1-3) Last Admin: 03/09/21 16:16 Dose: 650 mg Documented by: Al Hydroxide/Mg Hydroxide (Magnesium Hydrox/Alum Hydrox 30 Ml Oral.Susp) 30 ml PO Q6H PRN PRN Reason: Heartburn/Nausea Benztropine Mesylate (Benztropine Mesylate 1 Mg Tablet) 1 mg PO BID PRN PRN Reason: EPS Bisacodyl (Bisacodyl 10 Mg Supp.Rect) 10 mg [place] DAILY [facility] Last Admin: 03/10/21 09:14 Dose: Not Given Documented by: Docusate Sodium (Docusate Sodium 100 Mg Capsule) 100 mg PO BID [facility] Last Admin: 03/10/21 09:04 Dose: 100 mg Documented by: Glycerin (Glycerin Adult Supp.Rect) 1 supp [place] DAILY PRN PRN Reason: Constipation Last Admin: 03/09/21 22:56 Dose: 1 supp Documented by: Haloperidol (Haloperidol 5 Mg Tablet) 5 mg PO BEDTIME [facility] Last Admin: 03/09/21 22:18 Dose: 5 mg Documented by: Haloperidol Lactate (Haloperidol Lactate 5 Mg/Ml Vial) 5 mg IM BEDTIME PRN PRN Reason: if refuses oral per court Hydrocortisone (Hydrocortisone 1 % Cream 28.35 Gm Tube) 1 appl TOPICAL TID [facility]; Protocol Last Admin: 03/10/21 09:12 Dose: 1 appl Documented by: Hydroxyzine HCl (Hydroxyzine Hcl 25 Mg Tablet) 25 mg PO Q6H PRN PRN Reason: Anxiety Lactulose (Lactulose 20 Gm/30 Ml Solution) 20 gm PO TID [facility] Last Admin: 03/10/21 09:04 Dose: 20 gm Documented by: Lidocaine (Lidocaine 5 % Ointment 35 Gm) 1 appl TOPICAL Q6H [facility]; Protocol Last Admin: 03/10/21 09:11 Dose: 1 appl Documented by: Lidocaine HCl (Lidocaine 4 % Cream Kit) 1 appl TOPICAL ONCE PRN; Protocol PRN Reason: pain in rectum Last Admin: 03/07/21 21:04 Dose: 1 appl Documented by: Lidocaine HCl (Lidocaine 4 % Cream Kit) 1 appl TOPICAL DAILY PRN; Protocol PRN Reason: RECTAL PAIN Lorazepam (Lorazepam 1 Mg Tablet) 2 mg PO BEDTIME [facility] Last Admin: 03/09/21 22:18 Dose: 2 mg Documented by: Magnesium Hydroxide (Milk Of Magnesia 30 Ml Oral.Susp) 30 ml PO DAILY PRN PRN Reason: Constipation Last Admin: 03/06/21 21:42 Dose: 30 ml Documented by: Mineral Oil (Mineral Oil Enema 133 Ml Enema) 133 ml [place] ONCE PRN PRN Reason: constipation Last Admin: 03/05/21 21:15 Dose: 133 ml Documented by: Multi-Ingred Cream/Lotion/Oil/Oint (Mineral Oil/Petrolatum,White 106 Gm Tube) 1 appl TOPICAL TID PRN; Protocol PRN Reason: Itching Stop: 03/16/21 17:33 Last Admin: 03/09/21 22:26 Dose: 1 appl Documented by: Polyethylene Glycol (Polyethylene Glycol 3350 17 Gm Powd.Pack) 17 gm PO BIDPC [facility] Last Admin: 03/10/21 09:04 Dose: 17 gm Documented by: Trazodone HCl (Trazodone Hcl 50 Mg Tablet) 50 mg PO BEDTIME PRN PRN Reason: Insomnia Allergies Allergies Allergy/AdvReac Type Severity Reaction Status Date / Time No Known Allergies Allergy Verified 02/04/21 00:13 Assessment & Plan Assessment & Plan (1) Constipation by delayed colonic transit: Status: Acute Code(s): K59.01 - Slow transit constipation (2) Schizoaffective disorder, depressive type: Status: Acute Code(s): F25.1 - Schizoaffective disorder, depressive type Assessment and Plan: PSYCHIATRIC 03/10: pt less guarded, more open and agreeable to medical care. Had BM, less abdominal and rectal pain. hope to see her less paranoia so that she is more visible in unit and able to participate in groups and be around others. PLAN 1. Continue Haldol 5mg po qhs 2. Continue ativan 2mg po qhs CONSTIPATION: PER Dr. Boudreaux- 1/ Altered bowel habit and constipation likely exacerbated by anti psychotic medication, may have unerlying colonic inertia, do need ti exclude other leisons, colitis, colonic mass, pelvic floor dyssnergy. TSH was nml PLAN: 1/ Cont with scheduled miralax BID and colace, can add dulcolax as well for stimulant effect (I will order) 2/ Colonoscopy this week probably Wed for further assessment, will need to stay on clears day before, she did agree with this 3/ Good fluid intake, at least 3-4 glasses of water daily 4/ can add glycerin supp or lactulose if no progress I spent minutes with the patient and/or on the patient floor today, greater than?50% of which was spent counseling/coordinating care. Reason for contiued inpatient stay Substantial Risk for: inability to function
[2021-03-10 18:00] VITALS: BP 129/60; PULSE 92; RESP 16; TEMP 36.4; O2SAT 100
[2021-03-10 21:12] LABS: Thyrotropin Receptor Antibody <1.00 IU/L (<=2.00)
[2021-03-10] MEDS: LORazepam 1 MG TABLET 2 MG PO (22:42)
[2021-03-10] MEDS: HaloperidoL 5 MG TABLET PO (22:42)
[2021-03-11] MEDS: Docusate Sodium 100 MG CAPSULE PO ×2 (09:40→20:34)
[2021-03-11] MEDS: Lactulose 20 GM/30 ML SOLUTION PO ×3 (09:40→20:33)
[2021-03-11] MEDS: Lidocaine 5 % Ointment 35 GM 1 APPL TOPICAL ×2 (09:43→15:34)
[2021-03-11] MEDS: Hydrocortisone 1 % Cream 28.35 GM TUBE 1 APPL TOPICAL ×2 (09:43→15:34)
[2021-03-11 10:42] VITALS: BP 102/66; PULSE 111; RESP 16; TEMP 36.8; O2SAT 98
--- NOTE | 2021-03-11 11:30 | P.PNPSI_ITS ---
Subjective Subjective Date of Service: 03/11/21 Reason For Visit: Psychosis Subjective Notes: Section 8 Interim History: Pt has been more visible in the unit. She reports feeling less anxious about being around others and did go to one group for first time since admission. She reports much less abdominal pain. She has loose stools. Colonoscopy scheduled for tomorrow. She is also less suspicious about about food or staff in unit. She is accepting medical treatment for constipation. She reports sleeping better last night. 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: No c/o dizziness, headache GI: No c/o Nausea, Vomiting, diarrhea, constipation or heartburn Yes all other systems are reviewed and are negative and Unobtainable due to mental status Reports dizziness (when pushing stool) Reports behavioral changes and Reports dizziness (when pushing stool) Psychiatric: Reports abnormal sleep pattern, Reports anxiety, Reports behavioral changes, Reports change in appetite, Reports depression, Reports difficulty concentrating, Reports hopelessness, Reports irritability, Reports anhedonia, Reports paranoia and Reports suicidal ideation (denies) Mental Status Exam Mental Status Exam Narrative: Appearance: casually groomed, fair hygiene in NAD Behavior:less guarded. psychomotor: no agitation or retardation noted Speech:clear, less delayed response rate, soft, spontaneous Thought process: linear Thought content: wanting to go home, feeling anxious Mood: better Affect: less suspicious, brighter, non labile AH/VH: denies Insight/judgment:impaired x 2. Memory/cog: alert, oriented x 3. Diagnostics Vital Signs (24Hr): Vital Signs - 24 hr 03/10/21 18:00 03/11/21 10:42 Temperature 97.6 F 98.2 F Pulse Rate 92 111 H Respiratory Rate 16 16 Blood Pressure 129/60 102/66 Pulse Oximetry 100 98 Body Mass Index 32.5 Labs Results: 03/07/21 10:40 03/07/21 10:40 Labs: Laboratory Results - last 48 hr 03/07/21 17:46 TSH Receptor Ab <1.00 Imaging Radiology Impressions: ITS Impressions KUB X-Ray 02/28/21 15:30 IMPRESSION: Large amount of stool throughout the colon suggestive of constipation. No evidence of obstruction. KUB X-Ray 03/06/21 19:14 IMPRESSION: Moderate constipation, similar in severity to the prior exam. Medications Medications Current Medications Acetaminophen (Acetaminophen 325 Mg Tablet) 650 mg PO Q6H PRN PRN Reason: Headache/Pain Mild Scale (1-3) Last Admin: 03/09/21 16:16 Dose: 650 mg Documented by: Al Hydroxide/Mg Hydroxide (Magnesium Hydrox/Alum Hydrox 30 Ml Oral.Susp) 30 ml PO Q6H PRN PRN Reason: Heartburn/Nausea Benztropine Mesylate (Benztropine Mesylate 1 Mg Tablet) 1 mg PO BID PRN PRN Reason: EPS Bisacodyl (Bisacodyl 10 Mg Supp.Rect) 10 mg OR DAILY ALEX Last Admin: 03/11/21 09:41 Dose: Not Given Documented by: Docusate Sodium (Docusate Sodium 100 Mg Capsule) 100 mg PO BID [facility] Last Admin: 03/11/21 09:40 Dose: 100 mg Documented by: Glycerin (Glycerin Adult Supp.Rect) 1 supp OR DAILY PRN PRN Reason: Constipation Last Admin: 03/09/21 22:56 Dose: 1 supp Documented by: Haloperidol (Haloperidol 5 Mg Tablet) 5 mg PO BEDTIME ALEX Last Admin: 03/10/21 22:42 Dose: 5 mg Documented by: Haloperidol Lactate (Haloperidol Lactate 5 Mg/Ml Vial) 5 mg IM BEDTIME PRN PRN Reason: if refuses oral per court Hydrocortisone (Hydrocortisone 1 % Cream 28.35 Gm Tube) 1 appl TOPICAL TID ALEX; Protocol Last Admin: 03/11/21 09:43 Dose: 1 appl Documented by: Hydroxyzine HCl (Hydroxyzine Hcl 25 Mg Tablet) 25 mg PO Q6H PRN PRN Reason: Anxiety Lactulose (Lactulose 20 Gm/30 Ml Solution) 20 gm PO TID ALEX Last Admin: 03/11/21 09:40 Dose: 20 gm Documented by: Lidocaine (Lidocaine 5 % Ointment 35 Gm) 1 appl TOPICAL Q6H [facility]LEX; Protocol Last Admin: 03/11/21 09:43 Dose: 1 appl Documented by: Lidocaine HCl (Lidocaine 4 % Cream Kit) 1 appl TOPICAL ONCE PRN; Protocol PRN Reason: pain in rectum Last Admin: 03/07/21 21:04 Dose: 1 appl Documented by: Lidocaine HCl (Lidocaine 4 % Cream Kit) 1 appl TOPICAL DAILY PRN; Protocol PRN Reason: RECTAL PAIN Lorazepam (Lorazepam 1 Mg Tablet) 2 mg PO BEDTIME [facility]LEX Last Admin: 03/10/21 22:42 Dose: 2 mg Documented by: Magnesium Hydroxide (Milk Of Magnesia 30 Ml Oral.Susp) 30 ml PO DAILY PRN PRN Reason: Constipation Last Admin: 03/06/21 21:42 Dose: 30 ml Documented by: Mineral Oil (Mineral Oil Enema 133 Ml Enema) 133 ml OR ONCE PRN PRN Reason: constipation Last Admin: 03/05/21 21:15 Dose: 133 ml Documented by: Multi-Ingred Cream/Lotion/Oil/Oint (Mineral Oil/Petrolatum,White 106 Gm Tube) 1 appl TOPICAL TID PRN; Protocol PRN Reason: Itching Stop: 03/16/21 17:33 Last Admin: 03/09/21 22:26 Dose: 1 appl Documented by: Polyethylene Glycol (Polyethylene Glycol 3350 17 Gm Powd.Pack) 238 gm PO ONCE ONE Stop: 03/11/21 20:01 Trazodone HCl (Trazodone Hcl 50 Mg Tablet) 50 mg PO BEDTIME PRN PRN Reason: Insomnia Allergies Allergies Allergy/AdvReac Type Severity Reaction Status Date / Time No Known Allergies Allergy Verified 02/04/21 00:13 Assessment & Plan Assessment & Plan (1) Constipation by delayed colonic transit: Status: Acute Code(s): K59.01 - Slow transit constipation (2) Schizoaffective disorder, depressive type: Status: Acute Code(s): F25.1 - Schizoaffective disorder, depressive type Assessment and Plan: PSYCHIATRIC 03/10: pt less guarded, more open and agreeable to medical care. Had BM, less abdominal and rectal pain. Went to one group for first itme yesterday, brighter affect. Slightly more visible in unit and more open to participate in groups and be around others. PLAN 1. Continue Haldol 5mg po qhs 2. Continue ativan 2mg po qhs CONSTIPATION: PER Dr. Boudreaux- 1/ Altered bowel habit and constipation likely exacerbated by anti psychotic medication, may have underlying colonic inertia, do need to exclude other lesions, colitis, colonic mass, pelvic floor dysnergy. TSH was nml PLAN: 1/ Cont with scheduled miralax BID and colace, can add dulcolax as well for stimulant effect (I will order) 2/ Colonoscopy this week probably Wed for further assessment, will need to stay on clears day before, she did agree with this 3/ Good fluid intake, at least 3-4 glasses of water daily 4/ can add glycerin supp or lactulose if no progress I spent minutes with the patient and/or on the patient floor today, greater than?50% of which was spent counseling/coordinating care. Reason for contiued inpatient stay Substantial Risk for: inability to function
[2021-03-11] MEDS: HaloperidoL 5 MG TABLET PO (20:34)
[2021-03-11] MEDS: LORazepam 1 MG TABLET 2 MG PO (20:34)
[2021-03-11] MEDS: polyethylene glycoL 3350 17 GM POWD.PACK 238 GM PO (20:34)
[2021-03-11 20:58] VITALS: BP 120/71; PULSE 95; TEMP 36.6
--- NOTE | 2021-03-12 14:53 | HO.PSYCHPN ---
Subjective Subjective Date of Service: 03/12/21 Reason For Visit: Psychosis Subjective Notes: Section 8 Interim History: Pt has been more visible in the unit. She is less guarded and suspicious. She reports decreased anxiety. She had colonoscopy, pt reports she did not feel as anxious as she thought she would. She reports having a good appetite She reports she hopes to be discharge soon and is open to referrals. She denies SI/HI. She is also less suspicious about about food or staff in unit. She is accepting medical treatment for constipation/prevention of. She reports sleeping better last night. Review of Systems Review of Systems CVS: No c/o chest pain, palpitations, no SOB SHOT PACKER: No c/o dizziness, headache GI: No c/o Nausea, Vomiting, diarrhea, constipation or heartburn Yes all other systems are reviewed and are negative and Unobtainable due to mental status Reports dizziness (when pushing stool) Reports behavioral changes and Reports dizziness (when pushing stool) Psychiatric: Reports abnormal sleep pattern, Reports anxiety, Reports behavioral changes, Reports change in appetite, Reports depression, Reports difficulty concentrating, Reports hopelessness, Reports irritability, Reports anhedonia, Reports paranoia and Reports suicidal ideation (denies) Mental Status Exam Mental Status Exam Narrative: Appearance: casually groomed, fair hygiene in NAD Behavior:less guarded. psychomotor: no agitation or retardation noted Speech:clear, less delayed response rate, soft, spontaneous Thought process: linear Thought content: wanting to go home, feeling anxious Mood: better Affect: less suspicious, brighter, non labile AH/VH: denies Insight/judgment:impaired x 2. Memory/cog: alert, oriented x 3. Diagnostics Vital Signs (24Hr): Vital Signs - 24 hr 03/11/21 20:58 Temperature 98 F Pulse Rate 95 Blood Pressure 120/71 Body Mass Index 32.5 Labs Results: 03/07/21 10:40 03/07/21 10:40 Labs: Laboratory Results - last 48 hr 03/07/21 17:46 TSH Receptor Ab <1.00 Imaging Radiology Impressions: ITS Impressions KUB X-Ray 02/28/21 15:30 IMPRESSION: Large amount of stool throughout the colon suggestive of constipation. No evidence of obstruction. KUB X-Ray 03/06/21 19:14 IMPRESSION: Moderate constipation, similar in severity to the prior exam. Medications Medications Current Medications Acetaminophen (Acetaminophen 325 Mg Tablet) 650 mg PO Q6H PRN PRN Reason: Headache/Pain Mild Scale (1-3) Last Admin: 03/09/21 16:16 Dose: 650 mg Documented by: Al Hydroxide/Mg Hydroxide (Magnesium Hydrox/Alum Hydrox 30 Ml Oral.Susp) 30 ml PO Q6H PRN PRN Reason: Heartburn/Nausea Benztropine Mesylate (Benztropine Mesylate 1 Mg Tablet) 1 mg PO BID PRN PRN Reason: EPS Bisacodyl (Bisacodyl 10 Mg Supp.Rect) 10 mg DC DAILY ALEX Last Admin: 03/12/21 09:34 Dose: Not Given Documented by: Docusate Sodium (Docusate Sodium 100 Mg Capsule) 100 mg PO BID ALEX Last Admin: 03/12/21 09:34 Dose: Not Given Documented by: Glycerin (Glycerin Adult Supp.Rect) 1 supp DC DAILY PRN PRN Reason: Constipation Last Admin: 03/09/21 22:56 Dose: 1 supp Documented by: Haloperidol (Haloperidol 5 Mg Tablet) 5 mg PO BEDTIME [facility] Last Admin: 03/11/21 20:34 Dose: 5 mg Documented by: Haloperidol Lactate (Haloperidol Lactate 5 Mg/Ml Vial) 5 mg IM BEDTIME PRN PRN Reason: if refuses oral per court Hydrocortisone (Hydrocortisone 1 % Cream 28.35 Gm Tube) 1 appl TOPICAL TID [facility]; Protocol Last Admin: 03/12/21 09:34 Dose: Not Given Documented by: Hydroxyzine HCl (Hydroxyzine Hcl 25 Mg Tablet) 25 mg PO Q6H PRN PRN Reason: Anxiety Lactulose (Lactulose 20 Gm/30 Ml Solution) 20 gm PO TID [facility] Last Admin: 03/12/21 09:35 Dose: Not Given Documented by: Lidocaine (Lidocaine 5 % Ointment 35 Gm) 1 appl TOPICAL Q6H ALEX; Protocol Last Admin: 03/12/21 13:33 Dose: Not Given Documented by: Lidocaine HCl (Lidocaine 4 % Cream Kit) 1 appl TOPICAL ONCE PRN; Protocol PRN Reason: pain in rectum Last Admin: 03/07/21 21:04 Dose: 1 appl Documented by: Lidocaine HCl (Lidocaine 4 % Cream Kit) 1 appl TOPICAL DAILY PRN; Protocol PRN Reason: RECTAL PAIN Lorazepam (Lorazepam 1 Mg Tablet) 2 mg PO BEDTIME [facility] Last Admin: 03/11/21 20:34 Dose: 2 mg Documented by: Magnesium Hydroxide (Milk Of Magnesia 30 Ml Oral.Susp) 30 ml PO DAILY PRN PRN Reason: Constipation Last Admin: 03/06/21 21:42 Dose: 30 ml Documented by: Mineral Oil (Mineral Oil Enema 133 Ml Enema) 133 ml DC ONCE PRN PRN Reason: constipation Last Admin: 03/05/21 21:15 Dose: 133 ml Documented by: Multi-Ingred Cream/Lotion/Oil/Oint (Mineral Oil/Petrolatum,White 106 Gm Tube) 1 appl TOPICAL TID PRN; Protocol PRN Reason: Itching Stop: 03/16/21 17:33 Last Admin: 03/09/21 22:26 Dose: 1 appl Documented by: Trazodone HCl (Trazodone Hcl 50 Mg Tablet) 50 mg PO BEDTIME PRN PRN Reason: Insomnia Allergies Allergies Allergy/AdvReac Type Severity Reaction Status Date / Time No Known Allergies Allergy Verified 03/12/21 12:24 Assessment & Plan Assessment & Plan (1) Constipation by delayed colonic transit: Status: Acute Code(s): K59.01 - Slow transit constipation (2) Schizoaffective disorder, depressive type: Status: Acute Code(s): F25.1 - Schizoaffective disorder, depressive type Assessment and Plan: PSYCHIATRIC 03/10: pt less guarded, more open and agreeable to medical care. Had BM, less abdominal and rectal pain. Went to one group for first itme yesterday, brighter affect. Slightly more visible in unit and more open to participate in groups and be around others. PLAN 1. Continue Haldol 5mg po qhs 2. Continue ativan 2mg po qhs CONSTIPATION: PER Dr. Boudreaux- 1/ Altered bowel habit and constipation likely exacerbated by anti psychotic medication, may have underlying colonic inertia, do need to exclude other lesions, colitis, colonic mass, pelvic floor dysnergy. TSH was nml 1/ Cont with scheduled miralax BID and colace, can add dulcolax as well for stimulant effect (I will order) 2/ Colonoscopy this week probably Wed for further assessment, will need to stay on clears day before, she did agree with this 3/ Good fluid intake, at least 3-4 glasses of water daily 4/ can add glycerin supp or lactulose if no progress Colonoscopy per Dr. Boudreaux on 03/12: Impression and Post Procedure Diagnosis :internal hemorrhoids Plan: High fiber diet leaflet Avoid straining at stool, epsom salts and sitz bath, anusol supps or cream Repeat Colonoscopy in 10 years or earlier if clinically indicated can use miralax BID with colace 100 mg bid and prn dulcolax I spent minutes with the patient and/or on the patient floor today, greater than?50% of which was spent counseling/coordinating care. Reason for contiued inpatient stay Substantial Risk for: inability to function
--- NOTE | 2021-03-12 15:42 | MHC.CLN ---
F/U PATIENT HAD COLONOSCOPY TODAY. 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 APPEARS TO HAVE EATEN AND SAID THAT SHE WAS HUNGRY AFTER NOT EATING FOR PROCEDURE. REPORTED THAT TAKES SOME ENSURE CLEAR. CONTINUE TO SEND BID TO PROVIDE 480 KCAL, 16 G PROTEIN. CONTINUE TO FOLLOW UP WEEKLY.
[2021-03-12] MEDS: Acetaminophen 325 MG TABLET 650 MG PO (18:55)
[2021-03-12] MEDS: Lidocaine 5 % Ointment 35 GM 1 APPL TOPICAL ×2 (19:10→21:58)
[2021-03-12 20:31] VITALS: BP 116/67; PULSE 18; RESP 18; TEMP 36.8; O2SAT 100
[2021-03-12] MEDS: LORazepam 1 MG TABLET 2 MG PO (21:52)
[2021-03-12] MEDS: Docusate Sodium 100 MG CAPSULE PO (21:52)
[2021-03-12] MEDS: HaloperidoL 5 MG TABLET PO (21:52)
[2021-03-12] MEDS: hydrOXYzine HCL 25 MG TABLET PO (23:54)
[2021-03-13 07:00] VITALS: BMI 32.5
[2021-03-13] MEDS: Docusate Sodium 100 MG CAPSULE PO ×2 (10:28→20:07)
--- NOTE | 2021-03-13 12:35 | P.PNPSI_ITS ---
Subjective Subjective Date of Service: 03/13/21 Reason For Visit: Psychosis Subjective Notes: Section 8 Interim History: Pt has been in bed this morning. She reports feeling less anxious with current medications that she is taking. She was somewhat guarded when asked about PCP to scheduled follow up. She reports less abdominal pain. She has been slightly more visible in the unit and ahs attended some groups. Some reports about germs and worrying about them. She denies SI/HI. Medication Compliance: Yes Side effects from medications: No Attending Groups: Intermittent Review of Systems Review of Systems CVS: No c/o chest pain, palpitations, no SOB LIFE TEACHER: No c/o dizziness, headache GI: No c/o Nausea, Vomiting, diarrhea, constipation or heartburn Yes all other systems are reviewed and are negative and Unobtainable due to mental status Reports dizziness (when pushing stool) Reports behavioral changes and Reports dizziness (when pushing stool) Psychiatric: Reports abnormal sleep pattern, Reports anxiety, Reports behavioral changes, Reports change in appetite, Reports depression, Reports difficulty concentrating, Reports hopelessness, Reports irritability, Reports anhedonia, Reports paranoia and Reports suicidal ideation (denies) Mental Status Exam Mental Status Exam Narrative: Appearance: casually groomed, fair hygiene in NAD Behavior:less guarded. psychomotor: no agitation or retardation noted Speech:clear, less delayed response rate, soft, spontaneous Thought process: linear Thought content: wanting to go home, feeling anxious Mood: better Affect: less suspicious, brighter, non labile AH/VH: denies Insight/judgment:impaired x 2. Memory/cog: alert, oriented x 3. Diagnostics Vital Signs (24Hr): Vital Signs - 24 hr 03/12/21 20:31 Temperature 98.3 F Pulse Rate 18 L Respiratory Rate 18 Blood Pressure 116/67 Pulse Oximetry 100 Body Mass Index 32.5 Labs Results: 03/07/21 10:40 03/07/21 10:40 Imaging Radiology Impressions: ITS Impressions KUB X-Ray 02/28/21 15:30 IMPRESSION: Large amount of stool throughout the colon suggestive of constipation. No evidence of obstruction. KUB X-Ray 03/06/21 19:14 IMPRESSION: Moderate constipation, similar in severity to the prior exam. Medications Medications Current Medications Acetaminophen (Acetaminophen 325 Mg Tablet) 650 mg PO Q6H PRN PRN Reason: Headache/Pain Mild Scale (1-3) Last Admin: 03/12/21 18:55 Dose: 650 mg Documented by: Al Hydroxide/Mg Hydroxide (Magnesium Hydrox/Alum Hydrox 30 Ml Oral.Susp) 30 ml PO Q6H PRN PRN Reason: Heartburn/Nausea Benztropine Mesylate (Benztropine Mesylate 1 Mg Tablet) 1 mg PO BID PRN PRN Reason: EPS Bisacodyl (Bisacodyl 10 Mg Supp.Rect) 10 mg [place] DAILY ALEX Last Admin: 03/13/21 10:28 Dose: Not Given Documented by: Docusate Sodium (Docusate Sodium 100 Mg Capsule) 100 mg PO BID ALEX Last Admin: 03/13/21 10:28 Dose: 100 mg Documented by: Glycerin (Glycerin Adult Supp.Rect) 1 supp [place] DAILY PRN PRN Reason: Constipation Last Admin: 03/09/21 22:56 Dose: 1 supp Documented by: Haloperidol (Haloperidol 5 Mg Tablet) 5 mg PO BEDTIME ALEX Last Admin: 03/12/21 21:52 Dose: 5 mg Documented by: Haloperidol Lactate (Haloperidol Lactate 5 Mg/Ml Vial) 5 mg IM BEDTIME PRN PRN Reason: if refuses oral per court Hydrocortisone (Hydrocortisone 1 % Cream 28.35 Gm Tube) 1 appl TOPICAL TID ALEX; Protocol Last Admin: 03/13/21 10:29 Dose: Not Given Documented by: Hydroxyzine HCl (Hydroxyzine Hcl 25 Mg Tablet) 25 mg PO Q6H PRN PRN Reason: Anxiety Last Admin: 03/12/21 23:54 Dose: 25 mg Documented by: Lactulose (Lactulose 20 Gm/30 Ml Solution) 20 gm PO TID [facility] Last Admin: 03/13/21 10:29 Dose: Not Given Documented by: Lidocaine (Lidocaine 5 % Ointment 35 Gm) 1 appl TOPICAL Q6H ALEX; Protocol Last Admin: 03/13/21 10:58 Dose: Not Given Documented by: Lidocaine HCl (Lidocaine 4 % Cream Kit) 1 appl TOPICAL ONCE PRN; Protocol PRN Reason: pain in rectum Last Admin: 03/07/21 21:04 Dose: 1 appl Documented by: Lidocaine HCl (Lidocaine 4 % Cream Kit) 1 appl TOPICAL DAILY PRN; Protocol PRN Reason: RECTAL PAIN Lorazepam (Lorazepam 1 Mg Tablet) 2 mg PO BEDTIME ALEX Stop: 03/20/21 20:59 Last Admin: 03/12/21 21:52 Dose: 2 mg Documented by: Magnesium Hydroxide (Milk Of Magnesia 30 Ml Oral.Susp) 30 ml PO DAILY PRN PRN Reason: Constipation Last Admin: 03/06/21 21:42 Dose: 30 ml Documented by: Mineral Oil (Mineral Oil Enema 133 Ml Enema) 133 ml [place] ONCE PRN PRN Reason: constipation Last Admin: 03/05/21 21:15 Dose: 133 ml Documented by: Multi-Ingred Cream/Lotion/Oil/Oint (Mineral Oil/Petrolatum,White 106 Gm Tube) 1 appl TOPICAL TID PRN; Protocol PRN Reason: Itching Stop: 03/16/21 17:33 Last Admin: 03/09/21 22:26 Dose: 1 appl Documented by: Trazodone HCl (Trazodone Hcl 50 Mg Tablet) 50 mg PO BEDTIME PRN PRN Reason: Insomnia Allergies Allergies Allergy/AdvReac Type Severity Reaction Status Date / Time No Known Allergies Allergy Verified 03/12/21 12:24 Assessment & Plan Assessment & Plan (1) Constipation by delayed colonic transit: Status: Acute Code(s): K59.01 - Slow transit constipation (2) Schizoaffective disorder, depressive type: Status: Acute Code(s): F25.1 - Schizoaffective disorder, depressive type Assessment and Plan: PSYCHIATRIC 03/10: pt less guarded, more open and agreeable to medical care. Had BM, less abdominal and rectal pain. Went to one group for first itme yesterday, brighter affect. Slightly more visible in unit and more open to participate in groups and be around others. PLAN 1. Continue Haldol 5mg po qhs 2. Continue ativan 2mg po qhs CONSTIPATION: PER Dr. Boudreaux- 1/ Altered bowel habit and constipation likely exacerbated by anti psychotic medication, may have underlying colonic inertia, do need to exclude other lesions, colitis, colonic mass, pelvic floor dysnergy. TSH was nml 1/ Cont with scheduled miralax BID and colace, can add dulcolax as well for stimulant effect (I will order) 2/ Colonoscopy this week probably Wed for further assessment, will need to stay on clears day before, she did agree with this 3/ Good fluid intake, at least 3-4 glasses of water daily 4/ can add glycerin supp or lactulose if no progress Colonoscopy per Dr. Boudreaux on 03/12: Impression and Post Procedure Diagnosis :internal hemorrhoids Plan: High fiber diet leaflet Avoid straining at stool, epsom salts and sitz bath, anusol supps or cream Repeat Colonoscopy in 10 years or earlier if clinically indicated can use miralax BID with colace 100 mg bid and prn dulcolax I spent minutes with the patient and/or on the patient floor today, greater than?50% of which was spent counseling/coordinating care. Reason for contiued inpatient stay Substantial Risk for: inability to function
[2021-03-13 18:00] VITALS: BP 116/60; PULSE 78; RESP 16; TEMP 36.6; O2SAT 100
[2021-03-13] MEDS: HaloperidoL 5 MG TABLET PO (20:07)
[2021-03-13] MEDS: LORazepam 1 MG TABLET 2 MG PO (20:07)
[2021-03-13] MEDS: Acetaminophen 325 MG TABLET 650 MG PO (20:07)
[2021-03-13] MEDS: hydrOXYzine HCL 25 MG TABLET PO (21:28)
[2021-03-14 09:35] VITALS: BP 120/77; PULSE 111; RESP 18; TEMP 36.3; O2SAT 98
[2021-03-14] MEDS: Docusate Sodium 100 MG CAPSULE PO ×2 (09:38→20:17)
--- NOTE | 2021-03-14 13:00 | P.PNPSI_ITS ---
Subjective Subjective Date of Service: 03/14/21 Reason For Visit: Psychosis Subjective Notes: Section 8 Interim History: Pt reports that her anxiety is less, which she attributes to medications. She reports some depression related to her mother's . Pt reports someone was making sure she wouldn't get a job for the past year. She reports she can't talk about everything that is going on because some people wouldn't believe me. She reports she feels less anxious and more open to find job at this time. She reports sleeping better. She also reports eating much better. She denies SI/HI. We discussed increasing haldol to more therapeutic dose. 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: No c/o dizziness, headache GI: No c/o Nausea, Vomiting, diarrhea, constipation or heartburn Yes all other systems are reviewed and are negative and Unobtainable due to mental status Reports dizziness (when pushing stool) Reports behavioral changes and Reports dizziness (when pushing stool) Psychiatric: Reports abnormal sleep pattern, Reports anxiety, Reports behavioral changes, Reports change in appetite, Reports depression, Reports difficulty concentrating, Reports hopelessness, Reports irritability, Reports anhedonia, Reports paranoia and Reports suicidal ideation (denies) Mental Status Exam Mental Status Exam Narrative: Appearance: casually groomed, fair hygiene in NAD Behavior:less guarded. psychomotor: no agitation or retardation noted Speech:clear, less delayed response rate, soft, spontaneous Thought process: linear Thought content: wanting to go home, feeling less anxious but still reports that can't talk about everything that is happening because people won't believe me Mood: better Affect: less suspicious but continues to report things happening that she can't talk about because others wouldn't believe her , slightly brighter, non labile AH/VH: denies Insight/judgment:impaired x 2. Memory/cog: alert, oriented x 3. Diagnostics Vital Signs (24Hr): Vital Signs - 24 hr 03/13/21 18:00 03/14/21 09:35 Temperature 97.9 F 97.3 F Pulse Rate 78 111 H Respiratory Rate 16 18 Blood Pressure 116/60 120/77 Pulse Oximetry 100 98 Body Mass Index 32.5 Labs Results: 03/07/21 10:40 03/07/21 10:40 Imaging Radiology Impressions: ITS Impressions KUB X-Ray 02/28/21 15:30 IMPRESSION: Large amount of stool throughout the colon suggestive of constipation. No evidence of obstruction. KUB X-Ray 03/06/21 19:14 IMPRESSION: Moderate constipation, similar in severity to the prior exam. Medications Medications Current Medications Acetaminophen (Acetaminophen 325 Mg Tablet) 650 mg PO Q6H PRN PRN Reason: Headache/Pain Mild Scale (1-3) Last Admin: 03/13/21 20:07 Dose: 650 mg Documented by: Al Hydroxide/Mg Hydroxide (Magnesium Hydrox/Alum Hydrox 30 Ml Oral.Susp) 30 ml PO Q6H PRN PRN Reason: Heartburn/Nausea Benztropine Mesylate (Benztropine Mesylate 1 Mg Tablet) 1 mg PO BID PRN PRN Reason: EPS Bisacodyl (Bisacodyl 10 Mg Supp.Rect) 10 mg [place] DAILY ALEX Last Admin: 03/14/21 09:49 Dose: Not Given Documented by: Docusate Sodium (Docusate Sodium 100 Mg Capsule) 100 mg PO BID [facility] Last Admin: 03/14/21 09:38 Dose: 100 mg Documented by: Glycerin (Glycerin Adult Supp.Rect) 1 supp [place] DAILY PRN PRN Reason: Constipation Last Admin: 03/09/21 22:56 Dose: 1 supp Documented by: Haloperidol (Haloperidol 5 Mg Tablet) 5 mg PO BEDTIME ALEX Last Admin: 03/13/21 20:07 Dose: 5 mg Documented by: Haloperidol Lactate (Haloperidol Lactate 5 Mg/Ml Vial) 5 mg IM BEDTIME PRN PRN Reason: if refuses oral per court Hydrocortisone (Hydrocortisone 1 % Cream 28.35 Gm Tube) 1 appl TOPICAL TID [facility]; Protocol Last Admin: 03/14/21 10:25 Dose: Not Given Documented by: Hydroxyzine HCl (Hydroxyzine Hcl 25 Mg Tablet) 25 mg PO Q6H PRN PRN Reason: Anxiety Last Admin: 03/13/21 21:28 Dose: 12.5 mg Documented by: Lactulose (Lactulose 20 Gm/30 Ml Solution) 20 gm PO TID ALEX Last Admin: 03/14/21 09:49 Dose: Not Given Documented by: Lidocaine (Lidocaine 5 % Ointment 35 Gm) 1 appl TOPICAL Q6H ALEX; Protocol Last Admin: 03/14/21 05:08 Dose: Not Given Documented by: Lidocaine HCl (Lidocaine 4 % Cream Kit) 1 appl TOPICAL ONCE PRN; Protocol PRN Reason: pain in rectum Last Admin: 03/07/21 21:04 Dose: 1 appl Documented by: Lidocaine HCl (Lidocaine 4 % Cream Kit) 1 appl TOPICAL DAILY PRN; Protocol PRN Reason: RECTAL PAIN Lorazepam (Lorazepam 1 Mg Tablet) 2 mg PO BEDTIME ALEX Stop: 03/20/21 20:59 Last Admin: 03/13/21 20:07 Dose: 2 mg Documented by: Magnesium Hydroxide (Milk Of Magnesia 30 Ml Oral.Susp) 30 ml PO DAILY PRN PRN Reason: Constipation Last Admin: 03/06/21 21:42 Dose: 30 ml Documented by: Mineral Oil (Mineral Oil Enema 133 Ml Enema) 133 ml [place] ONCE PRN PRN Reason: constipation Last Admin: 03/05/21 21:15 Dose: 133 ml Documented by: Multi-Ingred Cream/Lotion/Oil/Oint (Mineral Oil/Petrolatum,White 106 Gm Tube) 1 appl TOPICAL TID PRN; Protocol PRN Reason: Itching Stop: 03/16/21 17:33 Last Admin: 03/09/21 22:26 Dose: 1 appl Documented by: Trazodone HCl (Trazodone Hcl 50 Mg Tablet) 50 mg PO BEDTIME PRN PRN Reason: Insomnia Allergies Allergies Allergy/AdvReac Type Severity Reaction Status Date / Time No Known Allergies Allergy Verified 03/12/21 12:24 Assessment & Plan Assessment & Plan (1) Constipation by delayed colonic transit: Status: Acute Code(s): K59.01 - Slow transit constipation (2) Schizoaffective disorder, depressive type: Status: Acute Code(s): F25.1 - Schizoaffective disorder, depressive type Assessment and Plan: PSYCHIATRIC 03/10: pt less guarded, more open and agreeable to medical care. Had BM, less abdominal and rectal pain. Went to one group for first itme yesterday, brighter affect. Slightly more visible in unit and more open to participate in groups and be around others. PLAN 1. INcrease Haldol 7.5mg po qhs 2. Continue ativan 2mg po qhs CONSTIPATION: PER Dr. Boudreaux- 1/ Altered bowel habit and constipation likely exacerbated by anti psychotic medication, may have underlying colonic inertia, do need to exclude other lesions, colitis, colonic mass, pelvic floor dysnergy. TSH was nml 1/ Cont with scheduled miralax BID and colace, can add dulcolax as well for stimulant effect (I will order) 2/ Colonoscopy this week probably Wed for further assessment, will need to stay on clears day before, she did agree with this 3/ Good fluid intake, at least 3-4 glasses of water daily 4/ can add glycerin supp or lactulose if no progress Colonoscopy per Dr. Boudreaux on 03/12: Impression and Post Procedure Diagnosis :internal hemorrhoids Plan: High fiber diet leaflet Avoid straining at stool, epsom salts and sitz bath, anusol supps or cream Repeat Colonoscopy in 10 years or earlier if clinically indicated can use miralax BID with colace 100 mg bid and prn dulcolax I spent minutes with the patient and/or on the patient floor today, greater than?50% of which was spent counseling/coordinating care. Reason for contiued inpatient stay Substantial Risk for: inability to function
[2021-03-14 20:06] VITALS: BP 109/66; PULSE 98; RESP 19; TEMP 36.4; O2SAT 100
[2021-03-14] MEDS: LORazepam 1 MG TABLET 2 MG PO (20:17)
[2021-03-14] MEDS: Lidocaine 4 % Cream KIT 1 APPL TOPICAL (20:17)
[2021-03-14] MEDS: HaloperidoL 5 MG TABLET 7.5 MG PO (20:18)
[2021-03-15 06:00] VITALS: BP 108/70; PULSE 116; RESP 14; TEMP 36.9; O2SAT 99
--- NOTE | 2021-03-15 07:56 | P.PNPSI_ITS ---
Subjective Subjective Date of Service: 03/15/21 Reason For Visit: Psychosis Interim History: Pt reports that her anxiety is less, which she attributes to medications. She reports some depression related to her mother's . Pt reports someone was making sure she wouldn't get a job for the past year. She reports she can't talk about everything that is going on because some people wouldn't believe me. She reports she feels less anxious and more open to find job at this time. She reports sleeping better. She also reports eating much better. She denies SI/HI. We discussed increasing haldol to more therapeutic dose. 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: No c/o dizziness, headache GI: No c/o Nausea, Vomiting, diarrhea, constipation or heartburn Yes all other systems are reviewed and are negative and Unobtainable due to mental status Reports dizziness (when pushing stool) Reports behavioral changes and Reports dizziness (when pushing stool) Psychiatric: Reports abnormal sleep pattern, Reports anxiety, Reports behavioral changes, Reports change in appetite, Reports depression, Reports difficulty concentrating, Reports hopelessness, Reports irritability, Reports anhedonia, Reports paranoia and Reports suicidal ideation (denies) Mental Status Exam Mental Status Exam Narrative: Appearance: casually groomed, fair hygiene in NAD Behavior:less guarded. psychomotor: no agitation or retardation noted Speech:clear, less delayed response rate, soft, spontaneous Thought process: linear Thought content: wanting to go home, feeling less anxious but still reports that can't talk about everything that is happening because people won't believe me Mood: better Affect: less suspicious but continues to report things happening that she can't talk about because others wouldn't believe her , slightly brighter, non labile AH/VH: denies Insight/judgment:impaired x 2. Memory/cog: alert, oriented x 3. Diagnostics Vital Signs (24Hr): Vital Signs - 24 hr 03/15/21 19:59 Temperature 97.5 F Pulse Rate 94 Respiratory Rate 18 Blood Pressure 103/55 L Pulse Oximetry 100 Body Mass Index 32.5 Labs Results: 03/07/21 10:40 03/07/21 10:40 Imaging Radiology Impressions: ITS Impressions KUB X-Ray 02/28/21 15:30 IMPRESSION: Large amount of stool throughout the colon suggestive of constipation. No evidence of obstruction. KUB X-Ray 03/06/21 19:14 IMPRESSION: Moderate constipation, similar in severity to the prior exam. Medications Medications Current Medications Acetaminophen (Acetaminophen 325 Mg Tablet) 650 mg PO Q6H PRN PRN Reason: Headache/Pain Mild Scale (1-3) Last Admin: 03/13/21 20:07 Dose: 650 mg Documented by: Al Hydroxide/Mg Hydroxide (Magnesium Hydrox/Alum Hydrox 30 Ml Oral.Susp) 30 ml PO Q6H PRN PRN Reason: Heartburn/Nausea Benztropine Mesylate (Benztropine Mesylate 1 Mg Tablet) 1 mg PO BID PRN PRN Reason: EPS Bisacodyl (Bisacodyl 10 Mg Supp.Rect) 10 mg [place] DAILY ALEX Last Admin: 03/15/21 08:42 Dose: Not Given Documented by: Docusate Sodium (Docusate Sodium 100 Mg Capsule) 100 mg PO BID ALEX Last Admin: 03/15/21 19:52 Dose: 100 mg Documented by: Glycerin (Glycerin Adult Supp.Rect) 1 supp [place] DAILY PRN PRN Reason: Constipation Last Admin: 03/09/21 22:56 Dose: 1 supp Documented by: Haloperidol (Haloperidol 5 Mg Tablet) 7.5 mg PO BEDTIME ALEX Last Admin: 03/15/21 19:50 Dose: 7.5 mg Documented by: Haloperidol Lactate (Haloperidol Lactate 5 Mg/Ml Vial) 5 mg IM BEDTIME PRN PRN Reason: if refuses oral per court Hydrocortisone (Hydrocortisone 1 % Cream 28.35 Gm Tube) 1 appl TOPICAL TID ALEX; Protocol Last Admin: 03/15/21 19:53 Dose: Not Given Documented by: Hydroxyzine HCl (Hydroxyzine Hcl 25 Mg Tablet) 25 mg PO Q6H PRN PRN Reason: Anxiety Last Admin: 03/13/21 21:28 Dose: 12.5 mg Documented by: Lactulose (Lactulose 20 Gm/30 Ml Solution) 20 gm PO TID ALEX Last Admin: 03/15/21 19:53 Dose: Not Given Documented by: Lidocaine (Lidocaine 5 % Ointment 35 Gm) 1 appl TOPICAL Q6H ALEX; Protocol Last Admin: 03/16/21 07:47 Dose: Not Given Documented by: Lidocaine HCl (Lidocaine 4 % Cream Kit) 1 appl TOPICAL ONCE PRN; Protocol PRN Reason: pain in rectum Last Admin: 03/07/21 21:04 Dose: 1 appl Documented by: Lidocaine HCl (Lidocaine 4 % Cream Kit) 1 appl TOPICAL DAILY PRN; Protocol PRN Reason: RECTAL PAIN Last Admin: 03/15/21 12:00 Dose: 1 appl Documented by: Lorazepam (Lorazepam 1 Mg Tablet) 2 mg PO BEDTIME ALEX Stop: 03/20/21 20:59 Last Admin: 03/15/21 19:49 Dose: 2 mg Documented by: Magnesium Hydroxide (Milk Of Magnesia 30 Ml Oral.Susp) 30 ml PO DAILY PRN PRN Reason: Constipation Last Admin: 03/06/21 21:42 Dose: 30 ml Documented by: Mineral Oil (Mineral Oil Enema 133 Ml Enema) 133 ml [place] ONCE PRN PRN Reason: constipation Last Admin: 03/05/21 21:15 Dose: 133 ml Documented by: Multi-Ingred Cream/Lotion/Oil/Oint (Mineral Oil/Petrolatum,White 106 Gm Tube) 1 appl TOPICAL TID PRN; Protocol PRN Reason: Itching Stop: 03/16/21 17:33 Last Admin: 03/09/21 22:26 Dose: 1 appl Documented by: Trazodone HCl (Trazodone Hcl 50 Mg Tablet) 50 mg PO BEDTIME PRN PRN Reason: Insomnia Allergies Allergies Allergy/AdvReac Type Severity Reaction Status Date / Time No Known Allergies Allergy Verified 03/12/21 12:24 Assessment & Plan Assessment & Plan (1) Constipation by delayed colonic transit: Status: Acute Code(s): K59.01 - Slow transit constipation (2) Schizoaffective disorder, depressive type: Status: Acute Code(s): F25.1 - Schizoaffective disorder, depressive type Assessment and Plan: PSYCHIATRIC 03/10: pt less guarded, more open and agreeable to medical care. Had BM, less abdominal and rectal pain. Went to one group for first itme yesterday, brighter affect. Slightly more visible in unit and more open to participate in groups and be around others. PLAN 1. INcrease Haldol 7.5mg po qhs 2. Continue ativan 2mg po qhs CONSTIPATION: PER Dr. Boudreaux- [place]/ Altered bowel habit and constipation likely exacerbated by anti psychotic medication, may have underlying colonic inertia, do need to exclude other lesions, colitis, colonic mass, pelvic floor dysnergy. TSH was nml 1/ Cont with scheduled miralax BID and colace, can add dulcolax as well for stimulant effect (I will order) 2/ Colonoscopy this week probably Wed for further assessment, will need to stay on clears day before, she did agree with this 3/ Good fluid intake, at least 3-4 glasses of water daily 4/ can add glycerin supp or lactulose if no progress Colonoscopy per Dr. Boudreaux on 03/12: Impression and Post Procedure Diagnosis :internal hemorrhoids Plan: High fiber diet leaflet Avoid straining at stool, epsom salts and sitz bath, anusol supps or cream Repeat Colonoscopy in 10 years or earlier if clinically indicated can use miralax BID with colace 100 mg bid and prn dulcolax I spent minutes with the patient and/or on the patient floor today, greater than?50% of which was spent counseling/coordinating care. Reason for contiued inpatient stay Substantial Risk for: inability to function
[2021-03-15] MEDS: Docusate Sodium 100 MG CAPSULE PO ×2 (08:40→19:52)
[2021-03-15] MEDS: Lidocaine 4 % Cream KIT 1 APPL TOPICAL (12:00)
[2021-03-15] MEDS: Hydrocortisone 1 % Cream 28.35 GM TUBE 1 APPL TOPICAL (16:13)
--- NOTE | 2021-03-15 19:26 | PC.NURSE ---
Today Radha was struggling with anxiety about how she is going to pay her rent and other bills upon discharge ( among other things.) She says she has not applied for ssi/ ssdi. I tried to print an alonso for her and found it has to be online or in person. Inconvenient for our patients. She states that she would like to be more actively involved in getting things in place prior to discharge. She has been more verbal about her grief r/t her mother dying and about not wanting to rely on her family. Lastly, she was hoping to speak to a hindu college or university faculty member. She doesn't?go to [employer]. I was told by Nursing Gunnery/Ordnance Officer Amanda that we don't have a skein yarn drier at [facility]. I passed along Radha's concerns to Clinical Medical Assistant Amanda Vásquez by email. In addition I worked with patient on deep breathing and using affirmations to cope with anxiety. She verbalized gratitude.
[2021-03-15] MEDS: LORazepam 1 MG TABLET 2 MG PO (19:49)
[2021-03-15] MEDS: HaloperidoL 5 MG TABLET 7.5 MG PO (19:50)
[2021-03-15 19:59] VITALS: BP 103/55; PULSE 94; RESP 18; TEMP 36.4; O2SAT 100
[2021-03-16 09:00] VITALS: BP 110/68; PULSE 100; RESP 16; TEMP 36.4; O2SAT 99
[2021-03-16] MEDS: Hydrocortisone 1 % Cream 28.35 GM TUBE 1 APPL TOPICAL ×3 (09:11→21:01)
[2021-03-16] MEDS: Docusate Sodium 100 MG CAPSULE PO ×2 (09:12→20:59)
[2021-03-16] MEDS: Lactulose 20 GM/30 ML SOLUTION PO ×2 (11:01→21:01)
[2021-03-16] MEDS: Acetaminophen 325 MG TABLET 650 MG PO (15:56)
[2021-03-16 18:00] VITALS: BP 124/82; PULSE 98; RESP 18; TEMP 36.8; O2SAT 99
--- NOTE | 2021-03-16 18:40 | HO.PSYCHPN ---
Subjective Subjective Date of Service: 03/16/21 Reason For Visit: Psychosis Interim History: pt's only question is if this tech writer has any information regarding her discharge date. MD informs her he does not but that SW and her provider will return tomorrow and she can ask them. per staff, improved insight. bored, broken sleep. had an episode of severe anxiety at 6:30 pm which appeared to be regarding her concerns about her housing and financial support after discharge. working on coping skills. bowels issue resolved. Mental Status Exam Mental Status Exam Narrative: Appearance: casually groomed, fair hygiene in NAD Behavior:less guarded. psychomotor: no agitation or retardation noted Speech:clear, less delayed response rate, soft, spontaneous Thought process: linear Thought content: wanting to go home Mood: not assessed Affect: less suspicious, non labile AH/VH: none expressed Insight/judgment:impaired x 2. Memory/cog: alert, oriented x 3. Diagnostics Vital Signs (24Hr): Vital Signs - 24 hr 03/15/21 19:59 03/16/21 09:00 Temperature 97.5 F 97.5 F Pulse Rate 94 100 Respiratory Rate 18 16 Blood Pressure 103/55 L 110/68 Pulse Oximetry 100 99 Body Mass Index 32.5 Labs Results: 03/07/21 10:40 03/07/21 10:40 Imaging Radiology Impressions: ITS Impressions KUB X-Ray 02/28/21 15:30 IMPRESSION: Large amount of stool throughout the colon suggestive of constipation. No evidence of obstruction. KUB X-Ray 03/06/21 19:14 IMPRESSION: Moderate constipation, similar in severity to the prior exam. Medications Medications Current Medications Acetaminophen (Acetaminophen 325 Mg Tablet) 650 mg PO Q6H PRN PRN Reason: Headache/Pain Mild Scale (1-3) Last Admin: 03/16/21 15:56 Dose: 650 mg Documented by: Al Hydroxide/Mg Hydroxide (Magnesium Hydrox/Alum Hydrox 30 Ml Oral.Susp) 30 ml PO Q6H PRN PRN Reason: Heartburn/Nausea Benztropine Mesylate (Benztropine Mesylate 1 Mg Tablet) 1 mg PO BID PRN PRN Reason: EPS Bisacodyl (Bisacodyl 10 Mg Supp.Rect) 10 mg TN DAILY ALEX Last Admin: 03/16/21 09:13 Dose: Not Given Documented by: Docusate Sodium (Docusate Sodium 100 Mg Capsule) 100 mg PO BID ALEX Last Admin: 03/16/21 09:12 Dose: 100 mg Documented by: Glycerin (Glycerin Adult Supp.Rect) 1 supp TN DAILY PRN PRN Reason: Constipation Last Admin: 03/09/21 22:56 Dose: 1 supp Documented by: Haloperidol (Haloperidol 5 Mg Tablet) 7.5 mg PO BEDTIME ALEX Last Admin: 03/15/21 19:50 Dose: 7.5 mg Documented by: Haloperidol Lactate (Haloperidol Lactate 5 Mg/Ml Vial) 5 mg IM BEDTIME PRN PRN Reason: if refuses oral per court Hydrocortisone (Hydrocortisone 1 % Cream 28.35 Gm Tube) 1 appl TOPICAL TID ALEX; Protocol Last Admin: 03/16/21 15:57 Dose: 1 appl Documented by: Hydroxyzine HCl (Hydroxyzine Hcl 25 Mg Tablet) 25 mg PO Q6H PRN PRN Reason: Anxiety Last Admin: 03/13/21 21:28 Dose: 12.5 mg Documented by: Lactulose (Lactulose 20 Gm/30 Ml Solution) 20 gm PO TID ALEX Last Admin: 03/16/21 15:58 Dose: Not Given Documented by: Lidocaine (Lidocaine 5 % Ointment 35 Gm) 1 appl TOPICAL Q6H ALEX; Protocol Last Admin: 03/16/21 16:41 Dose: Not Given Documented by: Lidocaine HCl (Lidocaine 4 % Cream Kit) 1 appl TOPICAL ONCE PRN; Protocol PRN Reason: pain in rectum Last Admin: 03/07/21 21:04 Dose: 1 appl Documented by: Lidocaine HCl (Lidocaine 4 % Cream Kit) 1 appl TOPICAL DAILY PRN; Protocol PRN Reason: RECTAL PAIN Last Admin: 03/15/21 12:00 Dose: 1 appl Documented by: Lorazepam (Lorazepam 1 Mg Tablet) 2 mg PO BEDTIME ALEX Stop: 03/20/21 20:59 Last Admin: 03/15/21 19:49 Dose: 2 mg Documented by: Magnesium Hydroxide (Milk Of Magnesia 30 Ml Oral.Susp) 30 ml PO DAILY PRN PRN Reason: Constipation Last Admin: 03/06/21 21:42 Dose: 30 ml Documented by: Mineral Oil (Mineral Oil Enema 133 Ml Enema) 133 ml TN ONCE PRN PRN Reason: constipation Last Admin: 03/05/21 21:15 Dose: 133 ml Documented by: Trazodone HCl (Trazodone Hcl 50 Mg Tablet) 50 mg PO BEDTIME PRN PRN Reason: Insomnia Allergies Allergies Allergy/AdvReac Type Severity Reaction Status Date / Time No Known Allergies Allergy Verified 03/12/21 12:24 Assessment & Plan Assessment & Plan (1) Constipation by delayed colonic transit: Status: Acute Code(s): K59.01 - Slow transit constipation (2) Schizoaffective disorder, depressive type: Status: Acute Code(s): F25.1 - Schizoaffective disorder, depressive type Assessment and Plan: PSYCHIATRIC 03/10: pt less guarded, more open and agreeable to medical care. Had BM, less abdominal and rectal pain. Went to one group for first itme yesterday, brighter affect. Slightly more visible in unit and more open to participate in groups and be around others. PLAN 1. INcrease Haldol 7.5mg po qhs 2. Continue ativan 2mg po qhs CONSTIPATION: PER Dr. Boudreaux- 1/ Altered bowel habit and constipation likely exacerbated by anti psychotic medication, may have underlying colonic inertia, do need to exclude other lesions, colitis, colonic mass, pelvic floor dysnergy. TSH was nml 1/ Cont with scheduled miralax BID and colace, can add dulcolax as well for stimulant effect (I will order) 2/ Colonoscopy this week probably Wed for further assessment, will need to stay on clears day before, she did agree with this 3/ Good fluid intake, at least 3-4 glasses of water daily 4/ can add glycerin supp or lactulose if no progress Colonoscopy per Dr. Boudreaux on 03/12: Impression and Post Procedure Diagnosis :internal hemorrhoids Plan: High fiber diet leaflet Avoid straining at stool, epsom salts and sitz bath, anusol supps or cream Repeat Colonoscopy in 10 years or earlier if clinically indicated can use miralax BID with colace 100 mg bid and prn dulcolax I spent minutes with the patient and/or on the patient floor today, greater than?50% of which was spent counseling/coordinating care. Reason for contiued inpatient stay Substantial Risk for: inability to function and rapid decompensation
[2021-03-16] MEDS: HaloperidoL 5 MG TABLET 7.5 MG PO (20:59)
[2021-03-16] MEDS: LORazepam 1 MG TABLET 2 MG PO (21:00)
[2021-03-17] MEDS: Docusate Sodium 100 MG CAPSULE PO ×2 (08:29→20:24)
[2021-03-17] MEDS: Hydrocortisone 1 % Cream 28.35 GM TUBE 1 APPL TOPICAL ×2 (08:30→15:42)
--- NOTE | 2021-03-17 12:36 | P.PNPSI_ITS ---
Subjective Subjective Date of Service: 03/17/21 Reason For Visit: Psychosis Subjective Notes: Section 8 Interim History: Pt somewhat guarded, asking for discharged but same time declining to provide her PCP's name to schedule aftercare appointments. Some reference that she can't talk about everything that is going on because people would not believe me. She reports sleeping and eating better. She denies abdominal pain. little insight as to reasons for this hospitalization nor need for treatment. 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: No c/o dizziness, headache GI: No c/o Nausea, Vomiting, diarrhea, constipation or heartburn Yes all other systems are reviewed and are negative and Unobtainable due to mental status Reports dizziness (when pushing stool) Reports behavioral changes and Reports dizziness (when pushing stool) Psychiatric: Reports abnormal sleep pattern, Reports anxiety, Reports behavioral changes, Reports change in appetite, Reports depression, Reports difficulty concentrating, Reports hopelessness, Reports irritability, Reports anhedonia, Reports paranoia and Reports suicidal ideation (denies) Mental Status Exam Mental Status Exam Narrative: Appearance: casually groomed, fair hygiene in NAD Behavior:guarded. psychomotor: no agitation or retardation noted Speech:clear, less delayed response rate, soft, spontaneous Thought process: linear Thought content: wanting to go home, not wanting to talk about everything that is going on in her life because ppl won't believe me Mood: fine Affect: guarded, slightly irritable AH/VH: none expressed Insight/judgment:impaired x 2. Memory/cog: alert, oriented x 3. Diagnostics Vital Signs (24Hr): Vital Signs - 24 hr 03/16/21 18:00 Temperature 98.2 F Pulse Rate 98 Respiratory Rate 18 Blood Pressure 124/82 Pulse Oximetry 99 Body Mass Index 32.5 Labs Results: 03/07/21 10:40 03/07/21 10:40 Imaging Radiology Impressions: ITS Impressions KUB X-Ray 02/28/21 15:30 IMPRESSION: Large amount of stool throughout the colon suggestive of constipation. No evidence of obstruction. KUB X-Ray 03/06/21 19:14 IMPRESSION: Moderate constipation, similar in severity to the prior exam. Medications Medications Current Medications Acetaminophen (Acetaminophen 325 Mg Tablet) 650 mg PO Q6H PRN PRN Reason: Headache/Pain Mild Scale (1-3) Last Admin: 03/16/21 15:56 Dose: 650 mg Documented by: Al Hydroxide/Mg Hydroxide (Magnesium Hydrox/Alum Hydrox 30 Ml Oral.Susp) 30 ml PO Q6H PRN PRN Reason: Heartburn/Nausea Benztropine Mesylate (Benztropine Mesylate 1 Mg Tablet) 1 mg PO BID PRN PRN Reason: EPS Bisacodyl (Bisacodyl 10 Mg Supp.Rect) 10 mg DC DAILY [facility] Last Admin: 03/17/21 08:37 Dose: Not Given Documented by: Docusate Sodium (Docusate Sodium 100 Mg Capsule) 100 mg PO BID ALEX Last Admin: 03/17/21 08:29 Dose: 100 mg Documented by: Glycerin (Glycerin Adult Supp.Rect) 1 supp DC DAILY PRN PRN Reason: Constipation Last Admin: 03/09/21 22:56 Dose: 1 supp Documented by: Haloperidol (Haloperidol 5 Mg Tablet) 7.5 mg PO BEDTIME [facility] Last Admin: 03/16/21 20:59 Dose: 7.5 mg Documented by: Haloperidol Lactate (Haloperidol Lactate 5 Mg/Ml Vial) 5 mg IM BEDTIME PRN PRN Reason: if refuses oral per court Hydrocortisone (Hydrocortisone 1 % Cream 28.35 Gm Tube) 1 appl TOPICAL TID ALEX; Protocol Last Admin: 03/17/21 08:30 Dose: 1 appl Documented by: Hydroxyzine HCl (Hydroxyzine Hcl 25 Mg Tablet) 25 mg PO Q6H PRN PRN Reason: Anxiety Last Admin: 03/13/21 21:28 Dose: 12.5 mg Documented by: Lactulose (Lactulose 20 Gm/30 Ml Solution) 20 gm PO TID ALEX Last Admin: 03/17/21 08:37 Dose: Not Given Documented by: Lidocaine (Lidocaine 5 % Ointment 35 Gm) 1 appl TOPICAL Q6H ALEX; Protocol Last Admin: 03/17/21 11:25 Dose: Not Given Documented by: Lidocaine HCl (Lidocaine 4 % Cream Kit) 1 appl TOPICAL ONCE PRN; Protocol PRN Reason: pain in rectum Last Admin: 03/07/21 21:04 Dose: 1 appl Documented by: Lidocaine HCl (Lidocaine 4 % Cream Kit) 1 appl TOPICAL DAILY PRN; Protocol PRN Reason: RECTAL PAIN Last Admin: 03/15/21 12:00 Dose: 1 appl Documented by: Lorazepam (Lorazepam 1 Mg Tablet) 2 mg PO BEDTIME ALEX Stop: 03/20/21 20:59 Last Admin: 03/16/21 21:00 Dose: 2 mg Documented by: Magnesium Hydroxide (Milk Of Magnesia 30 Ml Oral.Susp) 30 ml PO DAILY PRN PRN Reason: Constipation Last Admin: 03/06/21 21:42 Dose: 30 ml Documented by: Mineral Oil (Mineral Oil Enema 133 Ml Enema) 133 ml DC ONCE PRN PRN Reason: constipation Last Admin: 03/05/21 21:15 Dose: 133 ml Documented by: Trazodone HCl (Trazodone Hcl 50 Mg Tablet) 50 mg PO BEDTIME PRN PRN Reason: Insomnia Allergies Allergies Allergy/AdvReac Type Severity Reaction Status Date / Time No Known Allergies Allergy Verified 03/12/21 12:24 Assessment & Plan Assessment & Plan (1) Constipation by delayed colonic transit: Status: Acute Code(s): K59.01 - Slow transit constipation (2) Schizoaffective disorder, depressive type: Status: Acute Code(s): F25.1 - Schizoaffective disorder, depressive type Assessment and Plan: PSYCHIATRIC 03/17: somewhat guarded and irritable, declining name of PCP, stating she can't talk about everything that is going on due to fear that other won't believe her. PLAN 1. continue Haldol 7.5mg po qhs 2. Continue ativan 2mg po qhs CONSTIPATION: PER Dr. Boudreaux- 1/ Altered bowel habit and constipation likely exacerbated by anti psychotic medication, may have underlying colonic inertia, excluded with colonoscopy: other lesions, colitis, colonic mass, pelvic floor dysnergy. TSH was nml 1/ Cont with scheduled miralax BID and colace, can add dulcolax as well for stimulant effect (I will order) 2/ Colonoscopy completed on 03/12. 3/ Good fluid intake, at least 3-4 glasses of water daily 4/ can add glycerin supp or lactulose if no progress Colonoscopy per Dr. Boudreaux on 03/12: Impression and Post Procedure Diagnosis :internal hemorrhoids Plan: High fiber diet leaflet Avoid straining at stool, epsom salts and sitz bath, anusol supps or cream Repeat Colonoscopy in 10 years or earlier if clinically indicated can use miralax BID with colace 100 mg bid and prn dulcolax I spent minutes with the patient and/or on the patient floor today, greater than?50% of which was spent counseling/coordinating care. Reason for contiued inpatient stay Substantial Risk for: inability to function
[2021-03-17 18:00] VITALS: BP 111/68; PULSE 104; RESP 18; TEMP 36.7; O2SAT 100
[2021-03-17] MEDS: HaloperidoL 5 MG TABLET 7.5 MG PO (20:23)
[2021-03-17] MEDS: LORazepam 1 MG TABLET 2 MG PO (20:24)
[2021-03-17] MEDS: Lactulose 20 GM/30 ML SOLUTION PO (20:24)
[2021-03-18 09:00] VITALS: BP 92/61; PULSE 117; RESP 16; TEMP 36.9; O2SAT 99
[2021-03-18] MEDS: Lactulose 20 GM/30 ML SOLUTION PO (09:37)
[2021-03-18] MEDS: Docusate Sodium 100 MG CAPSULE PO ×2 (09:37→21:04)
[2021-03-18] MEDS: Hydrocortisone 1 % Cream 28.35 GM TUBE 1 APPL TOPICAL ×2 (09:40→21:07)
--- NOTE | 2021-03-18 10:27 | HO.PSYCHPN ---
Subjective Subjective Date of Service: 03/18/21 Reason For Visit: Psychosis Subjective Notes: Section 8 Interim History: Pt somewhat guarded. She still question need for psych treatment stating she came for depression, although she reports there are things she can't still talk about because people won't believe her. Some reference that she can't talk about everything that is going on because people would not believe me. She reports sleeping and eating better. She denies abdominal pain. little insight as to reasons for this hospitalization nor need for treatment. 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: No c/o dizziness, headache GI: No c/o Nausea, Vomiting, diarrhea, constipation or heartburn Yes all other systems are reviewed and are negative and Unobtainable due to mental status Reports dizziness (when pushing stool) Reports behavioral changes and Reports dizziness (when pushing stool) Psychiatric: Reports abnormal sleep pattern, Reports anxiety, Reports behavioral changes, Reports change in appetite, Reports depression, Reports difficulty concentrating, Reports hopelessness, Reports irritability, Reports anhedonia, Reports paranoia and Reports suicidal ideation (denies) Mental Status Exam Mental Status Exam Narrative: Appearance: casually groomed, fair hygiene in NAD Behavior:guarded. psychomotor: no agitation or retardation noted Speech:clear, less delayed response rate, soft, spontaneous Thought process: linear Thought content: wanting to go home, not wanting to talk about everything that is going on in her life because ppl won't believe me Mood: fine Affect: guarded, slightly irritable AH/VH: none expressed Insight/judgment:impaired x 2. Memory/cog: alert, oriented x 3. Diagnostics Vital Signs (24Hr): Vital Signs - 24 hr 03/17/21 18:00 03/18/21 09:00 Temperature 98.0 F 98.4 F Pulse Rate 104 H 117 H Respiratory Rate 18 16 Blood Pressure 111/68 92/61 Pulse Oximetry 100 99 Body Mass Index 32.5 Labs Results: 03/07/21 10:40 03/07/21 10:40 Imaging Radiology Impressions: ITS Impressions KUB X-Ray 02/28/21 15:30 IMPRESSION: Large amount of stool throughout the colon suggestive of constipation. No evidence of obstruction. KUB X-Ray 03/06/21 19:14 IMPRESSION: Moderate constipation, similar in severity to the prior exam. Medications Medications Current Medications Acetaminophen (Acetaminophen 325 Mg Tablet) 650 mg PO Q6H PRN PRN Reason: Headache/Pain Mild Scale (1-3) Last Admin: 03/16/21 15:56 Dose: 650 mg Documented by: Al Hydroxide/Mg Hydroxide (Magnesium Hydrox/Alum Hydrox 30 Ml Oral.Susp) 30 ml PO Q6H PRN PRN Reason: Heartburn/Nausea Benztropine Mesylate (Benztropine Mesylate 1 Mg Tablet) 1 mg PO BID PRN PRN Reason: EPS Bisacodyl (Bisacodyl 10 Mg Supp.Rect) [address] DAILY ALEX Last Admin: 03/18/21 09:54 Dose: Not Given Documented by: Docusate Sodium (Docusate Sodium 100 Mg Capsule) 100 mg PO BID ALEX Last Admin: 03/18/21 09:37 Dose: 100 mg Documented by: Glycerin (Glycerin Adult Supp.Rect) [address] DAILY PRN PRN Reason: Constipation Last Admin: 03/09/21 22:56 Dose: 1 supp Documented by: Haloperidol (Haloperidol 5 Mg Tablet) 7.5 mg PO BEDTIME ALEX Last Admin: 03/17/21 20:23 Dose: 7.5 mg Documented by: Haloperidol Lactate (Haloperidol Lactate 5 Mg/Ml Vial) 5 mg IM BEDTIME PRN PRN Reason: if refuses oral per court Hydrocortisone (Hydrocortisone 1 % Cream 28.35 Gm Tube) 1 appl TOPICAL TID ALEX; Protocol Last Admin: 03/18/21 09:40 Dose: 1 appl Documented by: Hydroxyzine HCl (Hydroxyzine Hcl 25 Mg Tablet) 25 mg PO Q6H PRN PRN Reason: Anxiety Last Admin: 03/13/21 21:28 Dose: 12.5 mg Documented by: Lactulose (Lactulose 20 Gm/30 Ml Solution) 20 gm PO TID ALEX Last Admin: 03/18/21 09:37 Dose: 20 gm Documented by: Lidocaine (Lidocaine 5 % Ointment 35 Gm) 1 appl TOPICAL Q6H ALEX; Protocol Last Admin: 03/18/21 09:54 Dose: Not Given Documented by: Lidocaine HCl (Lidocaine 4 % Cream Kit) 1 appl TOPICAL ONCE PRN; Protocol PRN Reason: pain in rectum Last Admin: 03/07/21 21:04 Dose: 1 appl Documented by: Lidocaine HCl (Lidocaine 4 % Cream Kit) 1 appl TOPICAL DAILY PRN; Protocol PRN Reason: RECTAL PAIN Last Admin: 03/15/21 12:00 Dose: 1 appl Documented by: Lorazepam (Lorazepam 1 Mg Tablet) 2 mg PO BEDTIME ALEX Stop: 03/20/21 20:59 Last Admin: 03/17/21 20:24 Dose: 2 mg Documented by: Magnesium Hydroxide (Milk Of Magnesia 30 Ml Oral.Susp) 30 ml PO DAILY PRN PRN Reason: Constipation Last Admin: 03/06/21 21:42 Dose: 30 ml Documented by: Mineral Oil (Mineral Oil Enema 133 Ml Enema) [address] ONCE PRN PRN Reason: constipation Last Admin: 03/05/21 21:15 Dose: 133 ml Documented by: Trazodone HCl (Trazodone Hcl 50 Mg Tablet) 50 mg PO BEDTIME PRN PRN Reason: Insomnia Allergies Allergies Allergy/AdvReac Type Severity Reaction Status Date / Time No Known Allergies Allergy Verified 03/12/21 12:24 Assessment & Plan Assessment & Plan (1) Constipation by delayed colonic transit: Status: Acute Code(s): K59.01 - Slow transit constipation (2) Schizoaffective disorder, depressive type: Status: Acute Code(s): F25.1 - Schizoaffective disorder, depressive type Assessment and Plan: PSYCHIATRIC 03/17: somewhat guarded and irritable, declining name of PCP, stating she can't talk about everything that is going on due to fear that other won't believe her. PLAN 1. continue Haldol 7.5mg po qhs- consider increasing to 10mg po qhs. 2. Continue ativan 2mg po qhs CONSTIPATION: PER Dr. Boudreaux- 1/ Altered bowel habit and constipation likely exacerbated by anti psychotic medication, may have underlying colonic inertia, excluded with colonoscopy: other lesions, colitis, colonic mass, pelvic floor dysnergy. TSH was nml 1/ Cont with scheduled miralax BID and colace, can add dulcolax as well for stimulant effect (I will order) 2/ Colonoscopy completed on 03/12. 3/ Good fluid intake, at least 3-4 glasses of water daily 4/ can add glycerin supp or lactulose if no progress Colonoscopy per Dr. Boudreaux on 03/12: Impression and Post Procedure Diagnosis :internal hemorrhoids Plan: High fiber diet leaflet Avoid straining at stool, epsom salts and sitz bath, anusol supps or cream Repeat Colonoscopy in 10 years or earlier if clinically indicated can use miralax BID with colace 100 mg bid and prn dulcolax I spent minutes with the patient and/or on the patient floor today, greater than?50% of which was spent counseling/coordinating care. Reason for contiued inpatient stay Substantial Risk for: inability to function
[2021-03-18 21:00] VITALS: BP 121/73; PULSE 100; TEMP 36.7; O2SAT 99
[2021-03-18] MEDS: HaloperidoL 5 MG TABLET 7.5 MG PO (21:04)
[2021-03-18] MEDS: LORazepam 1 MG TABLET 2 MG PO (21:04)
[2021-03-19 06:00] VITALS: BP 124/64; PULSE 124; RESP 16; TEMP 36.4; O2SAT 99
[2021-03-19] MEDS: Docusate Sodium 100 MG CAPSULE PO ×2 (08:22→20:53)
[2021-03-19] MEDS: Lactulose 20 GM/30 ML SOLUTION PO ×3 (08:22→20:53)
--- NOTE | 2021-03-19 12:59 | HO.PSYCHPN ---
Subjective Subjective Date of Service: 03/19/21 Reason For Visit: Psychosis Interim History: pt found lying in bed in her darkened room. MD informs her of dosing change of haldol. she becomes upset, standing, talking loudly and more than usual. she states she is doing everything right, going out on the unit, telling staff what's going on with her, doing her ADLs... so she doesn't understand why we would want her to take more medication. interview is terminated due to agitation, then pt approaches MD in the zuñiga later and asks to speak with him again. second interview is in the interview room. pt is more calm but makes the same arguments. MD explains the rationale as inadequately treated mental illness as evidenced by continued paranoia and evasiveness. pt states she has the right to express herself, and MD listens to her points. once she is finished, the interview is concluded and she exits the room. per staff, isolative. anx 08/10. does not believe she has mental illness. refusing lactulose and duclolax. Mental Status Exam Mental Status Exam Narrative: Appearance: casually groomed, fair hygiene in NAD Behavior:guarded. psychomotor: agitation Speech: incr rate, amount, loudness. decr latency. Thought process: linear Thought content: wanting to go home Mood: not assessed Affect: irritable SI/HI/AH/VH: denies Insight/judgment:impaired x 2. Memory/cog: alert, oriented x 3. Diagnostics Vital Signs (24Hr): Vital Signs - 24 hr 03/18/21 21:00 03/19/21 06:00 Temperature 98.1 F 97.6 F Pulse Rate 100 124 H Respiratory Rate 16 Blood Pressure 121/73 124/64 Pulse Oximetry 99 99 Body Mass Index 32.5 Labs Results: 03/07/21 10:40 03/07/21 10:40 Imaging Radiology Impressions: ITS Impressions KUB X-Ray 02/28/21 15:30 IMPRESSION: Large amount of stool throughout the colon suggestive of constipation. No evidence of obstruction. KUB X-Ray 03/06/21 19:14 IMPRESSION: Moderate constipation, similar in severity to the prior exam. Medications Medications Current Medications Acetaminophen (Acetaminophen 325 Mg Tablet) 650 mg PO Q6H PRN PRN Reason: Headache/Pain Mild Scale (1-3) Last Admin: 03/16/21 15:56 Dose: 650 mg Documented by: Al Hydroxide/Mg Hydroxide (Magnesium Hydrox/Alum Hydrox 30 Ml Oral.Susp) 30 ml PO Q6H PRN PRN Reason: Heartburn/Nausea Benztropine Mesylate (Benztropine Mesylate 1 Mg Tablet) 1 mg PO BID PRN PRN Reason: EPS Bisacodyl (Bisacodyl 10 Mg Supp.Rect) 10 mg [place] DAILY [facility] Last Admin: 03/19/21 10:25 Dose: Not Given Documented by: Docusate Sodium (Docusate Sodium 100 Mg Capsule) 100 mg PO BID ALEX Last Admin: 03/19/21 08:22 Dose: 100 mg Documented by: Glycerin (Glycerin Adult Supp.Rect) 1 supp [place] DAILY PRN PRN Reason: Constipation Last Admin: 03/09/21 22:56 Dose: 1 supp Documented by: Haloperidol (Haloperidol 5 Mg Tablet) 10 mg PO BEDTIME ALEX Haloperidol Lactate (Haloperidol Lactate 5 Mg/Ml Vial) 5 mg IM BEDTIME PRN PRN Reason: if refuses oral per court Hydrocortisone (Hydrocortisone 1 % Cream 28.35 Gm Tube) 1 appl TOPICAL TID ALEX; Protocol Last Admin: 03/19/21 12:09 Dose: Not Given Documented by: Hydroxyzine HCl (Hydroxyzine Hcl 25 Mg Tablet) 25 mg PO Q6H PRN PRN Reason: Anxiety Last Admin: 03/13/21 21:28 Dose: 12.5 mg Documented by: Lactulose (Lactulose 20 Gm/30 Ml Solution) 20 gm PO TID [facility] Last Admin: 03/19/21 08:22 Dose: 20 gm Documented by: Lidocaine (Lidocaine 5 % Ointment 35 Gm) 1 appl TOPICAL Q6H ALEX; Protocol Last Admin: 03/19/21 12:09 Dose: Not Given Documented by: Lidocaine HCl (Lidocaine 4 % Cream Kit) 1 appl TOPICAL ONCE PRN; Protocol PRN Reason: pain in rectum Last Admin: 03/07/21 21:04 Dose: 1 appl Documented by: Lidocaine HCl (Lidocaine 4 % Cream Kit) 1 appl TOPICAL DAILY PRN; Protocol PRN Reason: RECTAL PAIN Last Admin: 03/15/21 12:00 Dose: 1 appl Documented by: Lorazepam (Lorazepam 1 Mg Tablet) 2 mg PO BEDTIME [facility] Stop: 03/20/21 20:59 Last Admin: 03/18/21 21:04 Dose: 2 mg Documented by: Magnesium Hydroxide (Milk Of Magnesia 30 Ml Oral.Susp) 30 ml PO DAILY PRN PRN Reason: Constipation Last Admin: 03/06/21 21:42 Dose: 30 ml Documented by: Mineral Oil (Mineral Oil Enema 133 Ml Enema) 133 ml [place] ONCE PRN PRN Reason: constipation Last Admin: 03/05/21 21:15 Dose: 133 ml Documented by: Trazodone HCl (Trazodone Hcl 50 Mg Tablet) 50 mg PO BEDTIME PRN PRN Reason: Insomnia Allergies Allergies Allergy/AdvReac Type Severity Reaction Status Date / Time No Known Allergies Allergy Verified 03/12/21 12:24 Assessment & Plan Assessment & Plan (1) Constipation by delayed colonic transit: Status: Acute Code(s): K59.01 - Slow transit constipation (2) Schizoaffective disorder, depressive type: Status: Acute Code(s): F25.1 - Schizoaffective disorder, depressive type Assessment and Plan: PSYCHIATRIC 03/17: somewhat guarded and irritable, declining name of PCP, stating she can't talk about everything that is going on due to fear that other won't believe her. PLAN 1. increasing haldol to 10mg po qhs as of 03/19. 2. Continue ativan 2mg po qhs CONSTIPATION: PER Dr. Boudreaux- 1/ Altered bowel habit and constipation likely exacerbated by anti psychotic medication, may have underlying colonic inertia, excluded with colonoscopy: other lesions, colitis, colonic mass, pelvic floor dysnergy. TSH was nml 1/ Cont with scheduled miralax BID and colace, can add dulcolax as well for stimulant effect (I will order) 2/ Colonoscopy completed on 03/12. 3/ Good fluid intake, at least 3-4 glasses of water daily 4/ can add glycerin supp or lactulose if no progress Colonoscopy per Dr. Boudreaux on 03/12: Impression and Post Procedure Diagnosis :internal hemorrhoids Plan: High fiber diet leaflet Avoid straining at stool, epsom salts and sitz bath, anusol supps or cream Repeat Colonoscopy in 10 years or earlier if clinically indicated can use miralax BID with colace 100 mg bid and prn dulcolax I spent minutes with the patient and/or on the patient floor today, greater than?50% of which was spent counseling/coordinating care. Reason for contiued inpatient stay Substantial Risk for: inability to function and rapid decompensation
[2021-03-19] MEDS: Lidocaine 5 % Ointment 35 GM 1 APPL TOPICAL (16:52)
[2021-03-19] MEDS: Hydrocortisone 1 % Cream 28.35 GM TUBE 1 APPL TOPICAL ×2 (16:52→20:53)
[2021-03-19 18:00] VITALS: BP 109/71; PULSE 102; TEMP 36.7; O2SAT 100
[2021-03-19] MEDS: HaloperidoL 5 MG TABLET 10 MG PO (20:52)
[2021-03-19] MEDS: LORazepam 1 MG TABLET 2 MG PO (20:53)
[2021-03-20] MEDS: Lidocaine 5 % Ointment 35 GM 1 APPL TOPICAL (08:42)
[2021-03-20] MEDS: Hydrocortisone 1 % Cream 28.35 GM TUBE 1 APPL TOPICAL (08:42)
[2021-03-20] MEDS: Lactulose 20 GM/30 ML SOLUTION PO (08:43)
[2021-03-20] MEDS: Docusate Sodium 100 MG CAPSULE PO ×2 (08:43→20:33)
[2021-03-20 08:46] VITALS: BP 117/71; PULSE 97; RESP 16; TEMP 36.4; O2SAT 98
[2021-03-20 17:00] VITALS: BMI 34.5
--- NOTE | 2021-03-20 17:59 | HO.PSYCHPN ---
Subjective Subjective Date of Service: 03/20/21 Reason For Visit: Psychosis Interim History: pt found resting in her bed mid-morning. she denies any side effects from the increased dose of haldol yesterday evening. she has no questions or complaints for MD. per staff, pt has been bored, irritable, wants discharge. slept well last night with increased dose of haldol. Mental Status Exam Mental Status Exam Narrative: Appearance: casually groomed, fair hygiene in NAD Behavior:guarded. psychomotor: no agitation Speech: nml rate, decr amount, nml loudness, nml latency. Thought process: linear Thought content: no delusions or paranoia expressed in brief interview Mood: not assessed Affect: calm SI/HI/AH/VH: not assessed Insight/judgment:impaired x 2. Memory/cog: alert, oriented x 3. Diagnostics Vital Signs (24Hr): Vital Signs - 24 hr 03/19/21 18:00 03/20/21 08:46 Temperature 98.1 F 97.6 F Pulse Rate 102 H 97 Respiratory Rate 16 Blood Pressure 109/71 117/71 Pulse Oximetry 100 98 Body Mass Index 34.5 Labs Results: 03/07/21 10:40 03/07/21 10:40 Imaging Radiology Impressions: ITS Impressions KUB X-Ray 02/28/21 15:30 IMPRESSION: Large amount of stool throughout the colon suggestive of constipation. No evidence of obstruction. KUB X-Ray 03/06/21 19:14 IMPRESSION: Moderate constipation, similar in severity to the prior exam. Medications Medications Current Medications Acetaminophen (Acetaminophen 325 Mg Tablet) 650 mg PO Q6H PRN PRN Reason: Headache/Pain Mild Scale (1-3) Last Admin: 03/16/21 15:56 Dose: 650 mg Documented by: Al Hydroxide/Mg Hydroxide (Magnesium Hydrox/Alum Hydrox 30 Ml Oral.Susp) 30 ml PO Q6H PRN PRN Reason: Heartburn/Nausea Benztropine Mesylate (Benztropine Mesylate 1 Mg Tablet) 1 mg PO BID PRN PRN Reason: EPS Bisacodyl (Bisacodyl 10 Mg Supp.Rect) 10 mg [place] DAILY [facility] Last Admin: 03/20/21 08:44 Dose: Not Given Documented by: Docusate Sodium (Docusate Sodium 100 Mg Capsule) 100 mg PO BID [facility] Last Admin: 03/20/21 08:43 Dose: 100 mg Documented by: Glycerin (Glycerin Adult Supp.Rect) 1 supp [place] DAILY PRN PRN Reason: Constipation Last Admin: 03/09/21 22:56 Dose: 1 supp Documented by: Haloperidol (Haloperidol 5 Mg Tablet) 10 mg PO BEDTIME ALEX Last Admin: 03/19/21 20:52 Dose: 10 mg Documented by: Haloperidol Lactate (Haloperidol Lactate 5 Mg/Ml Vial) 5 mg IM BEDTIME PRN PRN Reason: if refuses oral per court Hydrocortisone (Hydrocortisone 1 % Cream 28.35 Gm Tube) 1 appl TOPICAL TID ALEX; Protocol Last Admin: 03/20/21 16:03 Dose: Not Given Documented by: Hydroxyzine HCl (Hydroxyzine Hcl 25 Mg Tablet) 25 mg PO Q6H PRN PRN Reason: Anxiety Last Admin: 03/13/21 21:28 Dose: 12.5 mg Documented by: Lactulose (Lactulose 20 Gm/30 Ml Solution) 20 gm PO TID [facility] Last Admin: 03/20/21 16:03 Dose: Not Given Documented by: Lidocaine (Lidocaine 5 % Ointment 35 Gm) 1 appl TOPICAL Q6H ALEX; Protocol Last Admin: 03/20/21 17:05 Dose: Not Given Documented by: Lidocaine HCl (Lidocaine 4 % Cream Kit) 1 appl TOPICAL ONCE PRN; Protocol PRN Reason: pain in rectum Last Admin: 03/07/21 21:04 Dose: 1 appl Documented by: Lidocaine HCl (Lidocaine 4 % Cream Kit) 1 appl TOPICAL DAILY PRN; Protocol PRN Reason: RECTAL PAIN Last Admin: 03/15/21 12:00 Dose: 1 appl Documented by: Lorazepam (Lorazepam 1 Mg Tablet) 2 mg PO BEDTIME [facility] Stop: 03/20/21 20:59 Last Admin: 03/19/21 20:53 Dose: 2 mg Documented by: Magnesium Hydroxide (Milk Of Magnesia 30 Ml Oral.Susp) 30 ml PO DAILY PRN PRN Reason: Constipation Last Admin: 03/06/21 21:42 Dose: 30 ml Documented by: Mineral Oil (Mineral Oil Enema 133 Ml Enema) 133 ml [place] ONCE PRN PRN Reason: constipation Last Admin: 03/05/21 21:15 Dose: 133 ml Documented by: Trazodone HCl (Trazodone Hcl 50 Mg Tablet) 50 mg PO BEDTIME PRN PRN Reason: Insomnia Allergies Allergies Allergy/AdvReac Type Severity Reaction Status Date / Time No Known Allergies Allergy Verified 03/12/21 12:24 Assessment & Plan Assessment & Plan (1) Constipation by delayed colonic transit: Status: Acute Code(s): K59.01 - Slow transit constipation (2) Schizoaffective disorder, depressive type: Status: Acute Code(s): F25.1 - Schizoaffective disorder, depressive type Assessment and Plan: PSYCHIATRIC 03/17: somewhat guarded and irritable, declining name of PCP, stating she can't talk about everything that is going on due to fear that other won't believe her. PLAN 1. increased haldol to 10mg po qhs as of 03/19. 2. Continue ativan 2mg po qhs CONSTIPATION: PER Dr. Boudreaux- 1/ Altered bowel habit and constipation likely exacerbated by anti psychotic medication, may have underlying colonic inertia, excluded with colonoscopy: other lesions, colitis, colonic mass, pelvic floor dysnergy. TSH was nml 1/ Cont with scheduled miralax BID and colace, can add dulcolax as well for stimulant effect (I will order) 2/ Colonoscopy completed on 03/12. 3/ Good fluid intake, at least 3-4 glasses of water daily 4/ can add glycerin supp or lactulose if no progress Colonoscopy per Dr. Boudreaux on 03/12: Impression and Post Procedure Diagnosis :internal hemorrhoids Plan: High fiber diet leaflet Avoid straining at stool, epsom salts and sitz bath, anusol supps or cream Repeat Colonoscopy in 10 years or earlier if clinically indicated can use miralax BID with colace 100 mg bid and prn dulcolax I spent minutes with the patient and/or on the patient floor today, greater than?50% of which was spent counseling/coordinating care. Reason for contiued inpatient stay Substantial Risk for: inability to function and med/psych decompensation
[2021-03-20] MEDS: HaloperidoL 5 MG TABLET 10 MG PO (20:32)
[2021-03-20 20:39] VITALS: BP 113/70; PULSE 99; TEMP 36.5; O2SAT 99
[2021-03-21] MEDS: Docusate Sodium 100 MG CAPSULE PO ×2 (09:57→20:43)
[2021-03-21 10:44] VITALS: BP 110/65; PULSE 81; RESP 16; TEMP 36.8; O2SAT 98
--- NOTE | 2021-03-21 10:48 | HO.PSYCHPN ---
Subjective Subjective Date of Service: 03/21/21 Reason For Visit: Psychosis Interim History: pt found resting in her bed mid-morning.? she denies any side effects from the increased dose of haldol the past two evenings.? she has no questions or complaints for MD.? per staff, pt has been visible, pleasant, cooperative. sleeping and eating well. Mental Status Exam Mental Status Exam Narrative: Appearance: casually groomed, fair hygiene in NAD Behavior:guarded. psychomotor: no agitation Speech: nml rate, decr amount, nml loudness, nml latency. Thought process: linear Thought content: no delusions or paranoia expressed in brief interview Mood: not assessed Affect: calm SI/HI/AH/VH: none expressed Diagnostics Vital Signs (24Hr): Vital Signs - 24 hr 03/20/21 20:39 03/21/21 10:44 Temperature 97.7 F 98.2 F Pulse Rate 99 81 Respiratory Rate 16 Blood Pressure 113/70 110/65 Pulse Oximetry 99 98 Body Mass Index 34.5 Labs Results: 03/07/21 10:40 03/07/21 10:40 Imaging Radiology Impressions: ITS Impressions KUB X-Ray 02/28/21 15:30 IMPRESSION: Large amount of stool throughout the colon suggestive of constipation. No evidence of obstruction. KUB X-Ray 03/06/21 19:14 IMPRESSION: Moderate constipation, similar in severity to the prior exam. Medications Medications Current Medications Acetaminophen (Acetaminophen 325 Mg Tablet) 650 mg PO Q6H PRN PRN Reason: Headache/Pain Mild Scale (1-3) Last Admin: 03/16/21 15:56 Dose: 650 mg Documented by: Al Hydroxide/Mg Hydroxide (Magnesium Hydrox/Alum Hydrox 30 Ml Oral.Susp) 30 ml PO Q6H PRN PRN Reason: Heartburn/Nausea Benztropine Mesylate (Benztropine Mesylate 1 Mg Tablet) 1 mg PO BID PRN PRN Reason: EPS Bisacodyl (Bisacodyl 10 Mg Supp.Rect) 10 mg [place] DAILY PRN PRN Reason: constipation Docusate Sodium (Docusate Sodium 100 Mg Capsule) 100 mg PO BID ALEX Last Admin: 03/21/21 09:57 Dose: 100 mg Documented by: Glycerin (Glycerin Adult Supp.Rect) 1 supp [place] DAILY PRN PRN Reason: Constipation Last Admin: 03/09/21 22:56 Dose: 1 supp Documented by: Haloperidol (Haloperidol 5 Mg Tablet) 10 mg PO BEDTIME ALEX Last Admin: 03/20/21 20:32 Dose: 10 mg Documented by: Haloperidol Lactate (Haloperidol Lactate 5 Mg/Ml Vial) 5 mg IM BEDTIME PRN PRN Reason: if refuses oral per court Hydrocortisone (Hydrocortisone 1 % Cream 28.35 Gm Tube) 1 appl TOPICAL TID ALEX; Protocol Last Admin: 03/21/21 09:57 Dose: Not Given Documented by: Hydroxyzine HCl (Hydroxyzine Hcl 25 Mg Tablet) 25 mg PO Q6H PRN PRN Reason: Anxiety Last Admin: 03/13/21 21:28 Dose: 12.5 mg Documented by: Lactulose (Lactulose 20 Gm/30 Ml Solution) 20 gm PO TID ALEX Last Admin: 03/21/21 09:57 Dose: Not Given Documented by: Lidocaine (Lidocaine 5 % Ointment 35 Gm) 1 appl TOPICAL Q6H ALEX; Protocol Last Admin: 03/21/21 09:57 Dose: Not Given Documented by: Lidocaine HCl (Lidocaine 4 % Cream Kit) 1 appl TOPICAL ONCE PRN; Protocol PRN Reason: pain in rectum Last Admin: 03/07/21 21:04 Dose: 1 appl Documented by: Lidocaine HCl (Lidocaine 4 % Cream Kit) 1 appl TOPICAL DAILY PRN; Protocol PRN Reason: RECTAL PAIN Last Admin: 03/15/21 12:00 Dose: 1 appl Documented by: Magnesium Hydroxide (Milk Of Magnesia 30 Ml Oral.Susp) 30 ml PO DAILY PRN PRN Reason: Constipation Last Admin: 03/06/21 21:42 Dose: 30 ml Documented by: Mineral Oil (Mineral Oil Enema 133 Ml Enema) 133 ml [place] ONCE PRN PRN Reason: constipation Last Admin: 03/05/21 21:15 Dose: 133 ml Documented by: Trazodone HCl (Trazodone Hcl 50 Mg Tablet) 50 mg PO BEDTIME PRN PRN Reason: Insomnia Allergies Allergies Allergy/AdvReac Type Severity Reaction Status Date / Time No Known Allergies Allergy Verified 03/12/21 12:24 Assessment & Plan Assessment & Plan (1) Constipation by delayed colonic transit: Status: Acute Code(s): K59.01 - Slow transit constipation (2) Schizoaffective disorder, depressive type: Status: Acute Code(s): F25.1 - Schizoaffective disorder, depressive type Assessment and Plan: PSYCHIATRIC 03/17: somewhat guarded and irritable, declining name of PCP, stating she can't talk about everything that is going on due to fear that other won't believe her. PLAN 1. increased haldol to 10mg po qhs as of 03/19. 2. ativan 2mg po qhs DCed 03/20 ( but was not renewed 03/21 as pt's sleep did not appear to be disrupted). CONSTIPATION: PER Dr. Boudreaux- 1/ Altered bowel habit and constipation likely exacerbated by anti psychotic medication, may have underlying colonic inertia, excluded with colonoscopy: other lesions, colitis, colonic mass, pelvic floor dysnergy. TSH was nml 1/ Cont with scheduled miralax BID and colace, can add dulcolax as well for stimulant effect (I will order) 2/ Colonoscopy completed on 03/12. 3/ Good fluid intake, at least 3-4 glasses of water daily 4/ can add glycerin supp or lactulose if no progress Colonoscopy per Dr. Boudreaux on 03/12: Impression and Post Procedure Diagnosis :internal hemorrhoids Plan: High fiber diet leaflet Avoid straining at stool, epsom salts and sitz bath, anusol supps or cream Repeat Colonoscopy in 10 years or earlier if clinically indicated can use miralax BID with colace 100 mg bid and prn dulcolax I spent minutes with the patient and/or on the patient floor today, greater than?50% of which was spent counseling/coordinating care. Reason for contiued inpatient stay Substantial Risk for: rapid decompensation
[2021-03-21 20:33] VITALS: BP 104/65; PULSE 93; RESP 18; TEMP 36.6; O2SAT 99
[2021-03-21] MEDS: HaloperidoL 5 MG TABLET 10 MG PO (20:43)
[2021-03-21] MEDS: Hydrocortisone 1 % Cream 28.35 GM TUBE 1 APPL TOPICAL (20:44)
--- NOTE | 2021-03-22 17:52 | HO.PSYCHPN ---
Subjective Subjective Date of Service: 03/22/21 Reason For Visit: Psychosis Interim History: Seen and discussed with team. She was found in her room. She requested that we meet outside her door. She reports she is feeling better. I am happierand have more energy . Denies SI/HI/AVH. She is asking about DC. She has no complaints. Compliant with meds. Per nursing not as preoccupied with cleanliness as before. Pt has been visible, pleasant, cooperative. sleeping and eating well. Review of Systems Review of Systems CVS: No c/o chest pain, palpitations, no SOB [employer]: No c/o dizziness, headache GI: No c/o Nausea, Vomiting, diarrhea, constipation or heartburn Yes all other systems are reviewed and are negative and Unobtainable due to mental status Reports dizziness (when pushing stool) Reports behavioral changes and Reports dizziness (when pushing stool) Psychiatric: Reports abnormal sleep pattern, Reports anxiety, Reports behavioral changes, Reports change in appetite, Reports depression, Reports difficulty concentrating, Reports hopelessness, Reports irritability, Reports anhedonia, Reports paranoia and Reports suicidal ideation (denies) Mental Status Exam Mental Status Exam Narrative: Appearance: casually groomed, fair hygiene in NAD Behavior:guarded. psychomotor: no agitation Speech: nml rate, decr amount, nml loudness, nml latency. Thought process: linear Thought content: no delusions or paranoia expressed in brief interview Mood: not assessed Affect: calm SI/HI/AH/VH: none expressed Patient Appearance: Well Grooomed Patient Orientation: Person and Situation Level of Consciousness: Awake Patient Behavior: Cooperative Mood Description: Depressed Affect Description: Constricted Patient Cognition Impaired: No Ability to Follow Directions: Good Speech Pattern: Clear Memory Description: Episodic Impaired Diagnostics Vital Signs (24Hr): Vital Signs - 24 hr 03/21/21 20:33 Temperature 98 F Pulse Rate 93 Respiratory Rate 18 Blood Pressure 104/65 Pulse Oximetry 99 Body Mass Index 34.5 Labs Results: 03/07/21 10:40 03/07/21 10:40 Imaging Radiology Impressions: ITS Impressions KUB X-Ray 02/28/21 15:30 IMPRESSION: Large amount of stool throughout the colon suggestive of constipation. No evidence of obstruction. KUB X-Ray 03/06/21 19:14 IMPRESSION: Moderate constipation, similar in severity to the prior exam. Medications Medications Current Medications Acetaminophen (Acetaminophen 325 Mg Tablet) 650 mg PO Q6H PRN PRN Reason: Headache/Pain Mild Scale (1-3) Last Admin: 03/16/21 15:56 Dose: 650 mg Documented by: Al Hydroxide/Mg Hydroxide (Magnesium Hydrox/Alum Hydrox 30 Ml Oral.Susp) 30 ml PO Q6H PRN PRN Reason: Heartburn/Nausea Benztropine Mesylate (Benztropine Mesylate 1 Mg Tablet) 1 mg PO BID PRN PRN Reason: EPS Bisacodyl (Bisacodyl 10 Mg Supp.Rect) 10 mg [place] DAILY PRN PRN Reason: constipation Docusate Sodium (Docusate Sodium 100 Mg Capsule) 100 mg PO BID ALEX Last Admin: 03/22/21 10:03 Dose: Not Given Documented by: Glycerin (Glycerin Adult Supp.Rect) 1 supp [place] DAILY PRN PRN Reason: Constipation Last Admin: 03/09/21 22:56 Dose: 1 supp Documented by: Haloperidol (Haloperidol 5 Mg Tablet) 10 mg PO BEDTIME ALEX Last Admin: 03/21/21 20:43 Dose: 10 mg Documented by: Haloperidol Lactate (Haloperidol Lactate 5 Mg/Ml Vial) 5 mg IM BEDTIME PRN PRN Reason: if refuses oral per court Hydrocortisone (Hydrocortisone 1 % Cream 28.35 Gm Tube) 1 appl TOPICAL TID ALEX; Protocol Last Admin: 03/22/21 15:42 Dose: Not Given Documented by: Hydroxyzine HCl (Hydroxyzine Hcl 25 Mg Tablet) 25 mg PO Q6H PRN PRN Reason: Anxiety Last Admin: 03/13/21 21:28 Dose: 12.5 mg Documented by: Lactulose (Lactulose 20 Gm/30 Ml Solution) 20 gm PO TID ALEX Last Admin: 03/22/21 15:51 Dose: Not Given Documented by: Lidocaine (Lidocaine 5 % Ointment 35 Gm) 1 appl TOPICAL Q6H ALEX; Protocol Last Admin: 03/22/21 15:49 Dose: Not Given Documented by: Lidocaine HCl (Lidocaine 4 % Cream Kit) 1 appl TOPICAL ONCE PRN; Protocol PRN Reason: pain in rectum Last Admin: 03/07/21 21:04 Dose: 1 appl Documented by: Lidocaine HCl (Lidocaine 4 % Cream Kit) 1 appl TOPICAL DAILY PRN; Protocol PRN Reason: RECTAL PAIN Last Admin: 03/15/21 12:00 Dose: 1 appl Documented by: Magnesium Hydroxide (Milk Of Magnesia 30 Ml Oral.Susp) 30 ml PO DAILY PRN PRN Reason: Constipation Last Admin: 03/06/21 21:42 Dose: 30 ml Documented by: Mineral Oil (Mineral Oil Enema 133 Ml Enema) 133 ml [place] ONCE PRN PRN Reason: constipation Last Admin: 03/05/21 21:15 Dose: 133 ml Documented by: Trazodone HCl (Trazodone Hcl 50 Mg Tablet) 50 mg PO BEDTIME PRN PRN Reason: Insomnia Allergies Allergies Allergy/AdvReac Type Severity Reaction Status Date / Time No Known Allergies Allergy Verified 03/12/21 12:24 Assessment & Plan Assessment & Plan (1) Constipation by delayed colonic transit: Status: Acute Code(s): K59.01 - Slow transit constipation (2) Schizoaffective disorder, depressive type: Status: Acute Code(s): F25.1 - Schizoaffective disorder, depressive type Assessment and Plan: PSYCHIATRIC PLAN 1. increased haldol to 10mg po qhs as of 03/19. 2. ativan 2mg po qhs DCed 03/20 ( but was not renewed 03/21 as pt's sleep did not appear to be disrupted). CONSTIPATION: PER Dr. Boudreaux- 1/ Altered bowel habit and constipation likely exacerbated by anti psychotic medication, may have underlying colonic inertia, excluded with colonoscopy: other lesions, colitis, colonic mass, pelvic floor dysnergy. TSH was nml 1/ Cont with scheduled miralax BID and colace, can add dulcolax as well for stimulant effect (I will order) 2/ Colonoscopy completed on 03/12. 3/ Good fluid intake, at least 3-4 glasses of water daily 4/ can add glycerin supp or lactulose if no progress Colonoscopy per Dr. Boudreaux on 03/12: Impression and Post Procedure Diagnosis :internal hemorrhoids Plan: High fiber diet leaflet Avoid straining at stool, epsom salts and sitz bath, anusol supps or cream Repeat Colonoscopy in 10 years or earlier if clinically indicated can use miralax BID with colace 100 mg bid and prn dulcolax I spent minutes with the patient and/or on the patient floor today, greater than?50% of which was spent counseling/coordinating care. Reason for contiued inpatient stay Substantial Risk for: inability to function
[2021-03-22 18:00] VITALS: BP 124/62; PULSE 88; TEMP 36.8; O2SAT 99
[2021-03-22] MEDS: Docusate Sodium 100 MG CAPSULE PO (20:46)
[2021-03-22] MEDS: hydrOXYzine HCL 25 MG TABLET PO (20:46)
[2021-03-22] MEDS: HaloperidoL 5 MG TABLET 10 MG PO (20:47)
[2021-03-22] MEDS: Lactulose 20 GM/30 ML SOLUTION PO (20:48)
[2021-03-22] MEDS: Hydrocortisone 1 % Cream 28.35 GM TUBE 1 APPL TOPICAL (20:54)
[2021-03-22] MEDS: Acetaminophen 325 MG TABLET 650 MG PO (22:58)
[2021-03-22 23:43] VITALS: BP 122/70; PULSE 88; TEMP 36.6; O2SAT 96
[2021-03-23] MEDS: Benztropine Mesylate 1 MG TABLET PO (00:01)
--- NOTE | 2021-03-23 00:16 | PC.NURSE ---
pt is reporting muscle tightness in her neck, back and shoulders. reporting restlessness and ''just not feeling right'' reports an increase in racing thoughts and finding it difficult to sleep. prn cogentin given. pt has also been off of ativan 2 mg po HS since 03/20. will monitor effects of cogentin. see VS documentation..
[2021-03-23 06:00] VITALS: BP 104/63; PULSE 97; RESP 16; TEMP 36.4; O2SAT 99
[2021-03-23] MEDS: Docusate Sodium 100 MG CAPSULE PO ×2 (08:59→20:18)
--- NOTE | 2021-03-23 15:15 | P.PNPSI_ITS ---
Subjective Subjective Date of Service: 03/23/21 Reason For Visit: Psychosis Interim History: Seen and discussed with team. She was found in her room. She invited TW to the room. She had an episode of back and shoulder muscle tightness last night. She responded well to cogentin and was able to sleep. She continue to report improvement. She is more engaged on the unit. Denies SI/HI/AVH. Compliant with meds. Pt has been visible, pleasant, cooperative. sleeping and eating well. 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 c/o dizziness, headache GI: No c/o Nausea, Vomiting, diarrhea, constipation or heartburn Yes all other systems are reviewed and are negative and Unobtainable due to mental status Reports dizziness (when pushing stool) Reports behavioral changes and Reports dizziness (when pushing stool) Psychiatric: Reports abnormal sleep pattern, Reports anxiety, Reports behavioral changes, Reports change in appetite, Reports depression, Reports difficulty concentrating, Reports hopelessness, Reports irritability, Reports anhedonia, Reports paranoia and Reports suicidal ideation (denies) Mental Status Exam Mental Status Exam Narrative: Appearance: casually groomed, fair hygiene in NAD Behavior:guarded. psychomotor: no agitation Speech: nml rate, decr amount, nml loudness, nml latency. Thought process: linear Thought content: no delusions or paranoia expressed in brief interview Mood: not assessed Affect: calm SI/HI/AH/VH: none expressed Patient Appearance: Well Grooomed Patient Orientation: Person and Situation Level of Consciousness: Awake Patient Behavior: Cooperative Mood Description: Depressed Affect Description: Constricted Patient Cognition Impaired: No Ability to Follow Directions: Good Speech Pattern: Clear Memory Description: Episodic Impaired Diagnostics Vital Signs (24Hr): Vital Signs - 24 hr 03/22/21 23:43 03/23/21 06:00 03/23/21 20:00 Temperature 97.8 F 97.6 F 98 F Pulse Rate 88 97 108 H Respiratory Rate 16 18 Blood Pressure 122/70 104/63 108/75 Pulse Oximetry 96 99 100 Body Mass Index 34.5 Labs Results: 03/07/21 10:40 03/07/21 10:40 Imaging Radiology Impressions: ITS Impressions KUB X-Ray 02/28/21 15:30 IMPRESSION: Large amount of stool throughout the colon suggestive of constipation. No evidence of obstruction. KUB X-Ray 03/06/21 19:14 IMPRESSION: Moderate constipation, similar in severity to the prior exam. Medications Medications Current Medications Acetaminophen (Acetaminophen 325 Mg Tablet) 650 mg PO Q6H PRN PRN Reason: Headache/Pain Mild Scale (1-3) Last Admin: 03/22/21 22:58 Dose: 650 mg Documented by: Al Hydroxide/Mg Hydroxide (Magnesium Hydrox/Alum Hydrox 30 Ml Oral.Susp) 30 ml PO Q6H PRN PRN Reason: Heartburn/Nausea Benztropine Mesylate (Benztropine Mesylate 1 Mg Tablet) 1 mg PO BID PRN PRN Reason: EPS Last Admin: 03/23/21 00:01 Dose: 1 mg Documented by: Bisacodyl (Bisacodyl 10 Mg Supp.Rect) 10 mg ND DAILY PRN PRN Reason: constipation Docusate Sodium (Docusate Sodium 100 Mg Capsule) 100 mg PO BID ALEX Last Admin: 03/23/21 20:18 Dose: 100 mg Documented by: Glycerin (Glycerin Adult Supp.Rect) 1 supp ND DAILY PRN PRN Reason: Constipation Last Admin: 03/09/21 22:56 Dose: 1 supp Documented by: Haloperidol (Haloperidol 5 Mg Tablet) 10 mg PO BEDTIME ALEX Last Admin: 03/23/21 20:18 Dose: 10 mg Documented by: Haloperidol Lactate (Haloperidol Lactate 5 Mg/Ml Vial) 5 mg IM BEDTIME PRN PRN Reason: if refuses oral per court Hydrocortisone (Hydrocortisone 1 % Cream 28.35 Gm Tube) 1 appl TOPICAL TID ALEX; Protocol Last Admin: 03/23/21 20:19 Dose: Not Given Documented by: Hydroxyzine HCl (Hydroxyzine Hcl 25 Mg Tablet) 25 mg PO Q6H PRN PRN Reason: Anxiety Last Admin: 03/22/21 20:46 Dose: 25 mg Documented by: Lactulose (Lactulose 20 Gm/30 Ml Solution) 20 gm PO TID ALEX Last Admin: 03/23/21 20:19 Dose: Not Given Documented by: Lidocaine (Lidocaine 5 % Ointment 35 Gm) 1 appl TOPICAL Q6H ALEX; Protocol Last Admin: 03/23/21 20:20 Dose: Not Given Documented by: Lidocaine HCl (Lidocaine 4 % Cream Kit) 1 appl TOPICAL ONCE PRN; Protocol PRN Reason: pain in rectum Last Admin: 03/07/21 21:04 Dose: 1 appl Documented by: Lidocaine HCl (Lidocaine 4 % Cream Kit) 1 appl TOPICAL DAILY PRN; Protocol PRN Reason: RECTAL PAIN Last Admin: 03/15/21 12:00 Dose: 1 appl Documented by: Magnesium Hydroxide (Milk Of Magnesia 30 Ml Oral.Susp) 30 ml PO DAILY PRN PRN Reason: Constipation Last Admin: 03/06/21 21:42 Dose: 30 ml Documented by: Mineral Oil (Mineral Oil Enema 133 Ml Enema) 133 ml ND ONCE PRN PRN Reason: constipation Last Admin: 03/05/21 21:15 Dose: 133 ml Documented by: Trazodone HCl (Trazodone Hcl 50 Mg Tablet) 50 mg PO BEDTIME PRN PRN Reason: Insomnia Last Admin: 03/23/21 22:12 Dose: 50 mg Documented by: Allergies Allergies Allergy/AdvReac Type Severity Reaction Status Date / Time No Known Allergies Allergy Verified 03/12/21 12:24 Assessment & Plan Assessment & Plan (1) Constipation by delayed colonic transit: Status: Acute Code(s): K59.01 - Slow transit constipation (2) Schizoaffective disorder, depressive type: Status: Acute Code(s): F25.1 - Schizoaffective disorder, depressive type Assessment and Plan: PSYCHIATRIC PLAN 1. increased haldol to 10mg po qhs as of 03/19. 2. ativan 2mg po qhs DCed 03/20 ( but was not renewed 03/21 as pt's sleep did not appear to be disrupted). 03/23: offered Cogentin as a standing dose but patient preferred it to be PRN. Watch for worsening constipation if used regularly. CONSTIPATION: PER Dr. Boudreaux- 1/ Altered bowel habit and constipation likely exacerbated by anti psychotic medication, may have underlying colonic inertia, excluded with colonoscopy: other lesions, colitis, colonic mass, pelvic floor dysnergy. TSH was nml 1/ Cont with scheduled miralax BID and colace, can add dulcolax as well for stimulant effect (I will order) 2/ Colonoscopy completed on 03/12. 3/ Good fluid intake, at least 3-4 glasses of water daily 4/ can add glycerin supp or lactulose if no progress Colonoscopy per Dr. Boudreaux on 03/12: Impression and Post Procedure Diagnosis :internal hemorrhoids Plan: High fiber diet leaflet Avoid straining at stool, epsom salts and sitz bath, anusol supps or cream Repeat Colonoscopy in 10 years or earlier if clinically indicated can use miralax BID with colace 100 mg bid and prn dulcolax I spent minutes with the patient and/or on the patient floor today, greater than?50% of which was spent counseling/coordinating care. Reason for contiued inpatient stay Substantial Risk for: inability to function and rapid decompensation
[2021-03-23 20:00] VITALS: BP 108/75; PULSE 108; RESP 18; TEMP 36.6; O2SAT 100
[2021-03-23] MEDS: HaloperidoL 5 MG TABLET 10 MG PO (20:18)
[2021-03-23] MEDS: traZODone HCL 50 MG TABLET PO ×2 (22:12→23:25)
[2021-03-24 08:12] VITALS: BP 108/57; PULSE 105; RESP 16; TEMP 36.7; O2SAT 98
--- NOTE | 2021-03-24 09:31 | P.PNPSI_ITS ---
Subjective Subjective Date of Service: 03/24/21 Reason For Visit: Psychosis Subjective Notes: Section 8 Interim History: Pt increasingly more visible in the unit, social with select peers. She reports feeling calmer, less worried about her safety. She reports she is less depressed. She denies SI/HI. She still reports being a germ-phobic and when we met in office pt declined to sit in chair stating she is worried about germs. She appears much less guarded, she is eating and sleeping well. Much less anxious. Medication Compliance: Yes Side effects from medications: No Attending Groups: Yes Review of Systems Review of Systems CVS: No c/o chest pain, palpitations, no SOB LITIGATION SPECIALIST: No c/o dizziness, headache GI: No c/o Nausea, Vomiting, diarrhea, constipation or heartburn Yes all other systems are reviewed and are negative and Unobtainable due to mental status Reports dizziness (when pushing stool) Reports behavioral changes and Reports dizziness (when pushing stool) Psychiatric: Reports abnormal sleep pattern, Reports anxiety, Reports behavioral changes, Reports change in appetite, Reports depression, Reports difficulty concentrating, Reports hopelessness, Reports irritability, Reports anhedonia, Reports paranoia and Reports suicidal ideation (denies) Mental Status Exam Mental Status Exam Narrative: Appearance: casually groomed, fair hygiene in NAD Behavior:less guarded psychomotor: no agitation Speech: nml rate, decr amount, nml loudness, nml latency, spontaneous. Thought process: linear Thought content: no delusions or paranoia expressed in brief interview Mood: not assessed Affect: calm SI/HI/AH/VH: none expressed Diagnostics Vital Signs (24Hr): Vital Signs - 24 hr 03/23/21 20:00 03/24/21 08:12 Temperature 98 F 98.1 F Pulse Rate 108 H 105 H Respiratory Rate 18 16 Blood Pressure 108/75 108/57 L Pulse Oximetry 100 98 Body Mass Index 34.5 Labs Results: 03/07/21 10:40 03/07/21 10:40 Imaging Radiology Impressions: ITS Impressions KUB X-Ray 02/28/21 15:30 IMPRESSION: Large amount of stool throughout the colon suggestive of constipation. No evidence of obstruction. KUB X-Ray 03/06/21 19:14 IMPRESSION: Moderate constipation, similar in severity to the prior exam. Medications Medications Current Medications Acetaminophen (Acetaminophen 325 Mg Tablet) 650 mg PO Q6H PRN PRN Reason: Headache/Pain Mild Scale (1-3) Last Admin: 03/22/21 22:58 Dose: 650 mg Documented by: Al Hydroxide/Mg Hydroxide (Magnesium Hydrox/Alum Hydrox 30 Ml Oral.Susp) 30 ml PO Q6H PRN PRN Reason: Heartburn/Nausea Benztropine Mesylate (Benztropine Mesylate 1 Mg Tablet) 1 mg PO BID PRN PRN Reason: EPS Last Admin: 03/23/21 00:01 Dose: 1 mg Documented by: Bisacodyl (Bisacodyl 10 Mg Supp.Rect) 10 mg SC DAILY PRN PRN Reason: constipation Docusate Sodium (Docusate Sodium 100 Mg Capsule) 100 mg PO BID ALEX Last Admin: 03/24/21 08:22 Dose: Not Given Documented by: Glycerin (Glycerin Adult Supp.Rect) 1 supp SC DAILY PRN PRN Reason: Constipation Last Admin: 03/09/21 22:56 Dose: 1 supp Documented by: Haloperidol (Haloperidol 5 Mg Tablet) 10 mg PO BEDTIME ALEX Last Admin: 03/23/21 20:18 Dose: 10 mg Documented by: Haloperidol Lactate (Haloperidol Lactate 5 Mg/Ml Vial) 5 mg IM BEDTIME PRN PRN Reason: if refuses oral per court Hydrocortisone (Hydrocortisone 1 % Cream 28.35 Gm Tube) 1 appl TOPICAL TID ALEX; Protocol Last Admin: 03/24/21 08:23 Dose: Not Given Documented by: Hydroxyzine HCl (Hydroxyzine Hcl 25 Mg Tablet) 25 mg PO Q6H PRN PRN Reason: Anxiety Last Admin: 03/22/21 20:46 Dose: 25 mg Documented by: Lactulose (Lactulose 20 Gm/30 Ml Solution) 20 gm PO TID PRN PRN Reason: constipation Lidocaine (Lidocaine 5 % Ointment 35 Gm) 1 appl TOPICAL Q6H ALEX; Protocol Last Admin: 03/24/21 11:26 Dose: Not Given Documented by: Lidocaine HCl (Lidocaine 4 % Cream Kit) 1 appl TOPICAL ONCE PRN; Protocol PRN Reason: pain in rectum Last Admin: 03/07/21 21:04 Dose: 1 appl Documented by: Lidocaine HCl (Lidocaine 4 % Cream Kit) 1 appl TOPICAL DAILY PRN; Protocol PRN Reason: RECTAL PAIN Last Admin: 03/15/21 12:00 Dose: 1 appl Documented by: Lorazepam (Lorazepam 1 Mg Tablet) 2 mg PO BEDTIME ALEX Magnesium Hydroxide (Milk Of Magnesia 30 Ml Oral.Susp) 30 ml PO DAILY PRN PRN Reason: Constipation Last Admin: 03/06/21 21:42 Dose: 30 ml Documented by: Mineral Oil (Mineral Oil Enema 133 Ml Enema) 133 ml SC ONCE PRN PRN Reason: constipation Last Admin: 03/05/21 21:15 Dose: 133 ml Documented by: Trazodone HCl (Trazodone Hcl 50 Mg Tablet) 50 mg PO BEDTIME PRN PRN Reason: Insomnia Last Admin: 03/23/21 23:25 Dose: 50 mg Documented by: Allergies Allergies Allergy/AdvReac Type Severity Reaction Status Date / Time No Known Allergies Allergy Verified 03/12/21 12:24 Assessment & Plan Assessment & Plan (1) Constipation by delayed colonic transit: Status: Acute Code(s): K59.01 - Slow transit constipation (2) Schizoaffective disorder, depressive type: Status: Acute Code(s): F25.1 - Schizoaffective disorder, depressive type Assessment and Plan: PSYCHIATRIC PLAN 1. increased haldol to 10mg po qhs as of 03/19. 2. restart ativan 1mg po qhs 03/23: offered Cogentin as a standing dose but patient preferred it to be PRN. Watch for worsening constipation if used regularly. CONSTIPATION: PER Dr. Boudreaux- 1/ Altered bowel habit and constipation likely exacerbated by anti psychotic medication, may have underlying colonic inertia, excluded with colonoscopy: other lesions, colitis, colonic mass, pelvic floor dysnergy. TSH was nml 1/ Cont with scheduled miralax BID and colace, can add dulcolax as well for stimulant effect (I will order) 2/ Colonoscopy completed on 03/12. 3/ Good fluid intake, at least 3-4 glasses of water daily 4/ can add glycerin supp or lactulose if no progress Colonoscopy per Dr. Boudreaux on 03/12: Impression and Post Procedure Diagnosis :internal hemorrhoids Plan: High fiber diet leaflet Avoid straining at stool, epsom salts and sitz bath, anusol supps or cream Repeat Colonoscopy in 10 years or earlier if clinically indicated can use miralax BID with colace 100 mg bid and prn dulcolax I spent minutes with the patient and/or on the patient floor today, greater than?50% of which was spent counseling/coordinating care. Reason for contiued inpatient stay Substantial Risk for: inability to function and stable for discharge
[2021-03-24 18:00] VITALS: BP 118/74; PULSE 102; RESP 18; TEMP 36.7; O2SAT 99
[2021-03-24] MEDS: HaloperidoL 5 MG TABLET 10 MG PO (20:59)
[2021-03-24] MEDS: Docusate Sodium 100 MG CAPSULE PO (20:59)
[2021-03-24] MEDS: LORazepam 1 MG TABLET PO (20:59)
[2021-03-24] MEDS: hydrOXYzine HCL 25 MG TABLET PO (20:59)
[2021-03-25] MEDS: Docusate Sodium 100 MG CAPSULE PO (08:31)
[2021-03-25 08:35] VITALS: BP 102/70; PULSE 121; RESP 16; O2SAT 99
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
--- NOTE | 2021-03-25 10:23 | PC.NURSE ---
Pt aware and ready for discharge. PT with bright affect, calm and cooperative, denies SI/HI, future focused. Discharge instructions discussed, all questions answered. PT declined to have RN schedule PCP appointment, states she will follow up on her own. Belongings returned. PT ambulated off the unit with steady gait.
== END 2021-03-25 10:23 | disposition home or self-care (01) | DRG 750 ==
LOC: HO.ED 19:47 → HO.PADLT16 19:51
PROVIDERS: Admitting Provider Registered Nurse; Emergency Provider Emergency Medicine Emergency Medical Services; Visit Provider Social Worker
DX: F25.1 Schizoaffective disorder, depressive type (principal); R45.851 Suicidal ideations; F41.1 Generalized anxiety disorder; K59.01 Slow transit constipation; Z20.822 Contact with and (suspected) exposure to COVID-19; Z79.899 Other long term (current) drug therapy
CPT/HCPCS: 36415; 74018; 80053; 80061; 80307; 81001; 81025; 82607; 82746; 83036; 83520; 84443; 85025; 87635; 93005; 99285

== ENCOUNTER → 2021-03-12 | Day surgery (SDC) | payer OTHER, SELFPAY ==
--- NOTE | 2021-03-12 12:20 | MHC.SHP ---
Pre-Procedural Eval Section A Date of Service: 03/12/21 The patient is an INPATIENT: Yes The History & Physical has been completed within 30 days and I have reviewed it.: Yes Section B Chief Complaint: change in bowel habit,abdominal pain Allergies: Allergies Allergy/AdvReac Type Severity Reaction Status Date / Time No Known Allergies Allergy Verified 02/04/21 00:13 Plan Diagnosis/Plan: Unchanged I have reviewed the history and physical and performed a pertinent physical examination on my patient. No changes have occurred unless specified. Patient is admitted to psychiatric unit
--- NOTE | 2021-03-12 12:21 | P.BOP_ITS ---
Brief Operative Note Date of Service: 03/12/21 Pre-op diagnosis: altered bowel habit and constipation Post-op diagnosis: same Procedure: see op note Surgeon: Rose Boudreaux MD Anesthesia: MAC Was an Deckhand Sponge Boat used for this Procedure?: No Estimated blood loss (mL): 0 Condition: stable Disposition: PACU
[2021-03-12 12:24] VITALS: BMI 33.0
[2021-03-12 12:27] VITALS: BP 99/52; PULSE 84; RESP 16; TEMP 36.4; O2SAT 100
--- NOTE | 2021-03-12 12:34 | P.OP_ITS ---
Operative Note Operative Note Date of Service: 03/12/21 Narrative: Operative Information Procedure Description: Colonoscopy COLONOSCOPY Instrument: Olympus variable stiffness pediatric scope 190L Colonoscopy Monitoring: Vital signs and clinical assessment, continuous EKG monitoring, Pulse oximetry, Carbon Dioxide monitoring and blood pressure monitoring were done throughout the procedure. Colon withdrawal time was 7 minutes. Procedure: The patient was placed in the left lateral decubitis position and pre-procedure medications were administered. After a digital rectal examination of the ano-rectum, the video colonoscope was inserted into the rectum and advanced through the colon to the cecum/TI. The colonoscope was slowly withdrawn in a retrograde panoramic fashion and the colon mucosa was carefully examined including a retroflexed view of the rectum. Findings and interventions are described below. Procedure Difficulty:easy Findings: Terminal Ileum-normal Cecum:normal Ascending Colon: normal Transverse Colon -normal Descending Colon:normal Sigmoid Colon: normal Rectum: Retroflexion with small internal hemorrhoids, grade I Anorectum - normal Colon preparation: [place] Bowel Preparation Scale Right colon; 2 Transverse colon: 2 Left colon; 2 (0 = Unprepared colon segment with mucosa not seen due to solid stool that cannot be cleared. 1 = Portion of mucosa of the colon segment seen, but other areas of the colon segment not well seen due to staining, residual stool and/or opaque liquid. 2 = Minor amount of residual staining, small fragments of stool and/or opaque liquid, but mucosa of colon segment seen well. 3 = Entire mucosa of colon segment seen well with no residual staining, small fragments of stool or opaque liquid) Impression and Post Procedure Diagnosis: internal hemorrhoids Plan: High fiber diet leaflet Avoid straining at stool, epsom salts and sitz bath, anusol supps or cream Repeat Colonoscopy in 10 years or earlier if clinically indicated can use miralax BID with colace 100 mg bid and prn dulcolax Above findings were reviewed with the patient and relevant handouts were provided if indicated.
--- NOTE | 2021-03-12 12:42 | HO.ANESPROP2 ---
HPI - Anesthesia Eval Consult details Narrative: 35 yo female patient for colonoscopy PMF Active Problems Active Problems: All Active Problems (Updated 03/12/21 @ 12:23 by Jessica Chandra RN) Acute psychosis (Acute) Depression (Acute) Acute anxiety (Acute) Acute post-traumatic stress disorder (Acute) ABRAN (generalized anxiety disorder) (Acute) Schizoaffective disorder, depressive type (Acute) Constipation by delayed colonic transit (Acute) Vaginal irritation (Acute) Past Medical History Medical History (Updated 03/12/21 @ 12:23 by Jessica Chandra RN) Asthma Hx of major depression Vaginal irritation Family History Family history of problems with anesthesia: No Surgical History Surgical History (Updated 03/12/21 @ 12:23 by Jessica Chandra RN) No pertinent past surgical history History of Problems with Anesthesia: No Social History Social History Household Members Other:: I don't want to answer that right now . Patient Tobacco Use Status: Never used Tobacco e-Cigarette/Vaping Use: Never Used Use of substances other than those prescribed or required for medical reasons: No Substance Use Type: Caffiene Are you DNR?: No service: No Sexual orientation: Decline to Answer Meds Allergies Allergy/AdvReac Type Severity Reaction Status Date / Time No Known Allergies Allergy Verified 03/12/21 12:24 Home Medications Medication Instructions Recorded Confirmed Last Taken Type Seroquel 1 tab PO TID 02/07/21 02/07/21 Unknown History melatonin 1 tab PO BEDTIME 02/07/21 02/07/21 Unknown History Exam Exam Date and Time: March 12, 2021 1242 Height,Weight and Vital Signs: Height 5 ft 1 in Weight 79.379 kg Last Vital Signs Temp 97.5 F 03/12/21 12:27 Pulse 84 03/12/21 12:27 Resp 16 03/12/21 12:27 BP 99/52 L 03/12/21 12:27 Pulse Ox 100 03/12/21 12:27 Airway Mallampati Class: II TM Dist: >3cm Neck ROM: Full Heart: RRR Lungs: CTAB Assessment and Plan Assessment Anesthesia Assessment: Anesthesia Plan Discussed and Chart Reviewed Final Anesthetic Review Family History of Problems with Anesthesia: No History of Problems with Anesthesia: No NPO: Yes ASA Class: II Final Preanesthetic Review: No Changes in Pt Med Stat, Meds/Allgs Chart Reviewed, Consent Obtained/Reviewed and Anes Risks/Benef Reviewed Patient Risk: Intermediate Procedure Risk: Low Assessment/Block/Sedation in SS: Assess/Block/Sedation-SS Anesthetic Plan Anesthetic Plan: MAC: Disposition: Standard PACU
[2021-03-12 13:15] VITALS: BP 98/63; PULSE 77; RESP 18; TEMP 36.4; O2SAT 100
[2021-03-12 13:30] VITALS: BP 109/71; PULSE 94; RESP 18; O2SAT 100
[2021-03-12 13:45] VITALS: BP 109/64; PULSE 79; RESP 17; TEMP 36.4; O2SAT 100
== END ==
PROVIDERS: Visit Provider Internal Medicine Gastroenterology
PROC: 0DJD8ZZ Inspection of Lower Intestinal Tract, Via Natural or Artificial Opening Endoscopic (ICD-10-PCS; CPT 45378; principal; 2021-03-12 13:00)
DX: R19.4 Change in bowel habit (principal); K59.01 Slow transit constipation; K64.0 First degree hemorrhoids; F32.9 Major depressive disorder, single episode, unspecified; F25.9 Schizoaffective disorder, unspecified; F41.1 Generalized anxiety disorder; F22 Delusional disorders; R45.851 Suicidal ideations; J45.909 Unspecified asthma, uncomplicated; Z79.899 Other long term (current) drug therapy
CPT/HCPCS: 45378